=== PATIENT | male | born 1935 | race Caucasian/White ===

== ENCOUNTER 2020-11-20 04:59 | Emergency (ER) | payer OTHER ==
--- OUTSIDE RECORDS SUMMARY | 2020-11-20 05:02 | XMS REPORT | Continuity of Care Document ---
:1935 Author Organization [facility] t Address [address] [place] [address] Care Team Providers Name Role Phone Unavailable Unavailable Unavailable Problems This patient has no known problems. Allergies, Adverse Reactions, Alerts Allergy Allergy Status Severity Reaction(s) Onset Inactive Treating Comm ents Source Name Type Date Date Clinician Zetia Adverse Active Info Not [facility] Reaction Available [facility] Medications Ordered Filled Start Stop Current Ordering Indication Dosage Frequency Signature Comments Components Source Medication Medication Date Date Medication? Clinician (SIG) Name Name Caltrate Caltrate Yes [address] [facility] 600+D 600+D Mill[facility] with a [facility] Multi For Multi For Yes not [facility] Him 50+ Him 50+ Millender defined [facility] Aspir-81 Aspir-81 Yes [address] [facility] Lipitor Lipitor Yes [address] [facility] Finasteride Finasteride Yes [address] [facility] Chondroitin Chondroitin Yes not [facility] Sulfate Sulfate [facility] defined [facility] Inderal LA Inderal LA Yes [address] [facility] Gabapentin Gabapentin Yes [address] [facility] Clonazepam Clonazepam Yes [address] [facility] at bedtime [facility] Procedures This patient has no known procedures. Encounters Start End Encounter Admission Attending Care Care Encounter Source Date/Time Date/Time Type Type Clinicians Facility Department ID 2020-09-30 2020-09-30 Outpatient [facility] [id number] [facility] 2020-09-30 2020-09-30 [facility] [id number] [facility] 2020-08-22 2020-08-22 [facility] [id number] [facility] 2020-06-14 2020-06-14 [facility] [id number] [facility] 2020-01-08 2020-01-08 [facility] [id number] [facility] 2019-09-25 2019-09-25 [facility] [id number] [facility] 10:40:00 10:40:00 [facility] Medicine Outpati ent Clinics 2019-06-13 2019-06-13 [facility] [id number] [facility] 09:57:00 09:57:00 [facility] Medicine Medicine Outpati ent Clinics 2019-06-12 2019-06-12 [facility] [id number] [facility] 15:45:00 15:45:00 [facility] Medicine l Medicine Outpati ent Clinics 2018-11-21 2018-11-21 [facility] [id number] [facility] 08:45:00 08:45:00 [facility] Medicine Outpati ent Clinics 2018-08-22 2018-08-22 [facility] [id number] [facility] 10:00[facility]00 10:00:00 [facility] 2017-08-23 2017-08-23 Outpatient Mahamed Portillo [id number] [facility] 15:00:00 15:00:00 [facility] ent Clinics Results This patient has no known results.
[2020-11-20] MEDS ORDERED: KETOROLAC 30 MG/ML INJ ONE (06:18)
--- NOTE | 2020-11-20 07:15 | RAD REPORT ---
EXAM DESCRIPTION: CTSpine Lumbar Wo Con11/20/2020 6:50 am CLINICAL HISTORY: Back injury with back pain status post fall COMPARISON: None TECHNIQUE: Computed axial tomography lumbar spine was obtained with coronal and sagittal reconstruct ion. All CT scans are performed using dose optimization technique as appropriate and may include automated exposure control or mA/KV adjustment according to patient size. FINDINGS: No fracture is seen. No dislocation. 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 If patient continues to have symptoms to suggest acute spinal canal pathology MRI would be recommende d
--- NOTE | 2020-11-20 07:19 | RAD REPORT ---
EXAM DESCRIPTION: CT - Pelvis Wo Cont - 11/20/2020 6:50 am CLINICAL HISTORY: Pelvic pain status post fall COMPARISON: None. TECHNIQUE: Computed axial tomography of the pelvis was obtained. Coronal and sagittal reconstruction performed All CT scans are performed using dose optimization technique as appropriate and may include automated exposure control or mA/KV adjustment according to patient size. FINDINGS: The bones are osteoporotic. No fracture or dislocation is seen. Muscles are normal size and density. A subcutaneous contusion is not noted IMPRESSION: No fracture seen. If patient continues have symptoms to suggest an occult fracture MRI would be recommended
--- NOTE | 2020-11-20 07:39 | EDPHYS ---
Physician Documentation [facility] Name: Adam Spencer Age: 84 yrs Sex: Male : 1935 Arrival Date: 11/20/2020 Time: 05:04 Bed 24 Private MD: [facility] ED Physician Allan Pierce HPI: 11/20 05:51 This 84 yrs old Male presents to ER via Wheelchair with complaints of Fall ma2 Injury. 05:51 Onset: The symptoms/episode began/occurred suddenly, 2 day(s) ago. Associated injuries: ma2 The patient sustained injury to the low back. Severity of symptoms: At their worst the symptoms were mild, in the emergency department the symptoms are unchanged. The patient has experienced similar episodes in the past. Fell while mowing the grass, tripped lost balance, mechanical fall hit sacrum,/lower back, has bilateral lower back pain no red flags such as fever weakness urinary incontinence, or bowel incontinence,. 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 - Family history:: not pertinent. - Social history: Denies using street drugs, alcohol. ROS: 05:51 Constitutional: Negative for fever, chills, and weight loss. ma2 05:51 All other systems are negative. Exam: 05:51 Constitutional: This is a well developed, well nourished patient who is awake, alert, ma2 and in no acute distress. Head/Face: Normocephalic, atraumatic. Eyes: Pupils equal round and reactive to light, extra-ocular motions intact. Lids and lashes normal. Conjunctiva and sclera are non-icteric and not injected. Cornea within normal limits. Periorbital areas with no swelling, redness, or edema. ENT: Nares patent. No nasal discharge, no septal abnormalities noted. Tympanic membranes are normal and external auditory canals are clear. Oropharynx with no redness, swelling, or masses, exudates, or evidence of obstruction, uvula midline. Mucous membranes moist. Neck: Trachea midline, no thyromegaly or masses palpated, and no cervical lymphadenopathy. Supple, full range of motion without nuchal rigidity, or vertebral point tenderness. No Meningismus. Chest/axilla: Normal chest wall appearance and motion. Nontender with no deformity. No lesions are appreciated. Cardiovascular: Regular rate and rhythm with a normal S1 and S2. No gallops, murmurs, or rubs. Normal PMI, no JVD. No pulse deficits. Respiratory: Lungs have equal breath sounds bilaterally, clear to auscultation and percussion. No rales, rhonchi or wheezes noted. No increased work of breathing, no retractions or nasal flaring. Abdomen/GI: Soft, non-tender, with normal bowel sounds. No distension or tympany. No guarding or rebound. No evidence of tenderness throughout. Back: Paraspinal muscle spasm and tenderness at level of L2-3 L4, no spinal tenderness. No costovertebral tenderness. Full range of motion. Skin: Warm, dry with normal turgor. Normal color with no rashes, no lesions, and no evidence of cellulitis. MS/ Extremity: Pulses equal, no cyanosis. Neurovascular intact. Full, normal range of motion. Neuro: Awake and alert, GCS 15, oriented to person, place, time, and situation. Cranial nerves II-XII grossly intact. Motor strength 5/5 in all extremities. Sensory grossly intact. Cerebellar exam normal. Normal gait. Vital Signs: 05:22 BP 125 / 65; Pulse 69; Resp 17; Temp 98.3; Pulse Ox 97% ; Weight 86.18 kg; Height 6 ft. em 0 in. (182.88 cm); Pain 8/10; 05:22 Body Mass Index 25.77 (86.18 kg, 182.88 cm) em Eli Coma Score: 05:22 Eye Response: spontaneous(4). Verbal Response: oriented(5). Motor Response: obeys em commands(6). Total: 15. Trauma Score (Adult): 05:22 Eye Response: spontaneous(1); Verbal Response: oriented(1); Motor Response: obeys em commands(2); Systolic BP: > 89 mm Hg(4); Respiratory Rate: 10 to 29 per min(4); Eli Score: 15; Trauma Score: 12 MDM: 05:41 Patient medically screened. ma2 05:51 Differential diagnosis: abrasion, fracture, sprain, strain. ma2 07:40 Data reviewed: vital signs, nurses notes, radiologic studies, CT scan, and as a result, cp I will discharge patient. Counseling: I had a detailed discussion with the patient and/or guardian regarding: the historical points, exam findings, and any diagnostic results supporting the discharge/admit diagnosis, radiology results, the need for outpatient follow up, a family practitioner, to return to the emergency department if symptoms worsen or persist or if there are any questions or concerns that arise at home. Response to treatment: the patient's symptoms have markedly improved after treatment. 11/20 05:50 Order name: CT Lumbar Spine Wo Con; Complete Time: 07:36 ma2 11/20 05:50 Order name: CT Pelvis wo Cont; Complete Time: 07:36 ma2 Administered Medications: 06:02 Drug: Ketorolac 60 mg Route: IM; Site: right gluteus; em 07:30 Follow up: Response: Pain is decreased em Disposition Summary: 11/20/20 07:39 Discharge Ordered Location: Home cp Condition: Stable cp Diagnosis - Low back pain cp - Fall on same level from slipping, tripping and stumbling without subsequent cp striking against object Followup: ma2 - With: Private Physician - When: Tomorrow - Reason: Continuance of care Discharge Instructions: - Discharge Summary Sheet ma2 - Acute Back Pain, Adult ma2 - Low Back Sprain or Strain Rehab-SportsMed ma2 - Back Injury Prevention, [id number] ma2 Forms: - Medication Reconciliation Form cp - Thank You Letter cp - Antibiotic Education cp - Prescription Opioid Use cp Prescriptions: - Cyclobenzaprine 10 mg Oral Tablet - take 1 tablet by ORAL route every 8 hours As needed; 30 tablet; Refills: 0, ma2 Product Selection Permitted - Diclofenac Sodium 75 mg Oral Tablet Sustained Release - take 1 tablet by ORAL route 2 times per day; 30 tablet; Refills: 0, Product ma2 Selection Permitted Signatures: Dispatcher [employer] Bob Ames RN RN em Nicolas Bobby PA PA cp Allan Pierce MD MD ma2
--- NOTE | 2020-11-20 07:39 | ER ---
Nurse's Notes [facility] Name: Adam Spencer Age: 84 yrs Sex: Male : 1935 Arrival Date: 11/20/2020 Time: 05:04 Bed 24 Private MD: Jarred Woods Diagnosis: Low back pain;Fall on same level from slipping, tripping and stumbling without subsequent striking against object Presentation: 11/20 05:20 Chief complaint: Patient states: was weed eating the yard on Tuesday and I lost my em balance and fell causing an injury to my lower back. Care prior to arrival: None. Mechanism of Injury: Fall from standing position. Trauma event details: Injury occurred in the [facility], Injury occurred: at home. Injury occurred: November 18, 2020. 05:20 Acuity: AISHA 3 em 05:20 Method Of Arrival: Wheelchair em 06:00 Coronavirus screen: Client denies travel out of the [place] in the last 14 days. Ebola em Screen: Patient negative for fever greater than or equal to 101.5 degrees Fahrenheit, and additional compatible Ebola Virus Disease symptoms Patient denies exposure to infectious person. Patient denies travel to an Ebola-affected area in the 21 days before illness onset. No symptoms or risks identified at this time. Initial Sepsis Screen: Does the patient meet any 2 criteria? No. Patient's initial sepsis screen is negative. Initial Sepsis Screen: Does the patient have a suspected source of infection? No. Patient's initial sepsis screen is negative. Risk Assessment: Do you want to hurt yourself or someone else? Patient reports no desire to harm self or others. Onset of symptoms was November 20, 2020. 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 - Family history:: not pertinent. - Social history: Denies using street drugs, alcohol. Screenin:54 Abuse screen: Denies threats or abuse. Nutritional screening: No deficits noted. em Tuberculosis screening: No symptoms or risk factors identified. Fall Risk None identified. Primary Survey: 06:00 NO uncontrolled hemorrhage observed. A: The patient is alert. Airway: patent. em Breathing/Chest: Respiratory pattern: regular, Respiratory effort: spontaneous. Circulation: Skin color: pink. Disability Alert. Exposure/Environment: There is no evidence of uncontrolled external bleeding. Assessment: 06:00 General: Appears in no apparent distress. uncomfortable, Behavior is calm, cooperative, em appropriate for age. Pain: Complains of pain in lumbar area Pain currently is 8 out of 10 on a pain scale. Neuro: Level of Consciousness is awake, alert, obeys commands, Oriented to person, place, time, situation. Cardiovascular: Capillary refill < 3 seconds Patient's skin is warm and dry. Respiratory: Airway is patent Respiratory effort is even, unlabored, Respiratory pattern is regular, symmetrical. Derm: Skin is intact, is thin, Skin is pink, warm \T\ dry. Musculoskeletal: Capillary refill < 3 seconds, Range of motion: intact in all extremities. 07:47 Reassessment: pt reports that pain has improved. pt able to ambulate without assistance tr6 and refused wheelchair for discharge. discharge instructions reviewed with pt and pts son at bedside. Vital Signs: 05:22 BP 125 / 65; Pulse 69; Resp 17; Temp 98.3; Pulse Ox 97% ; Weight 86.18 kg; Height 6 ft. em 0 in. (182.88 cm); Pain 8/10; 05:22 Body Mass Index 25.77 (86.18 kg, 182.88 cm) em Eli Coma Score: 05:22 Eye Response: spontaneous(4). Verbal Response: oriented(5). Motor Response: obeys em commands(6). Total: 15. Trauma Score (Adult): 05:22 Eye Response: spontaneous(1); Verbal Response: oriented(1); Motor Response: obeys em commands(2); Systolic BP: > 89 mm Hg(4); Respiratory Rate: 10 to 29 per min(4); Eli Score: 15; Trauma Score: 12 ED Course: 05:04 Patient arrived in ED. es 05:04 Jarred Woods DO is Private Physician. es 05:22 Triage completed. em 05:25 Arm band placed on right wrist. em 05:41 Allan Pierce MD is Attending Physician. ma2 05:54 Bob Hunter, RN is Primary Nurse. em 05:54 Patient has correct armband on for positive identification. Adult w/ patient. em 06:00 Patient maintains SpO2 saturation greater than 95% on room air. em 06:00 Thermoregulation: warm blanket given to patient. em 06:50 CT Lumbar Spine Wo Con In Process Unspecified. EDMS 06:50 CT Pelvis wo Cont In Process Unspecified. EDMS 06:53 Nicolas Bobby PA is PHCP. cp 07:16 No provider procedures requiring assistance completed. em 07:48 Patient did not have IV access during this emergency room visit. tr6 Administered Medications: 06:02 Drug: Ketorolac 60 mg Route: IM; Site: right gluteus; em 07:30 Follow up: Response: Pain is decreased em Outcome: 07:39 Discharge ordered by MD. cp 07:48 Discharged to home ambulatory, with family. tr6 07:48 Condition: improved 07:48 Discharge instructions given to patient, family, Instructed on discharge instructions, follow up and referral plans. medication usage, safety practices, Demonstrated understanding of instructions, follow-up care, medications, Prescriptions given X 2. 07:49 Patient left the ED. tr6 Signatures: Dispatcher [employer] Vivi White Edgar, RN RN em Nicolas Bobby PA PA cp Allan Pierce MD MD wi2 Tere Long RN RN tr6
[2020-11-20 19:29] VITALS: BP 125/65; TEMP 98.3; O2SAT 97
== END 2020-11-20 07:49 | disposition home or self-care (01) ==
LOC: ER 04:59
DX: M54.5 Low back pain (principal); W01.0XXA Fall on same level from slipping, tripping and stumbling without subsequent striking against object, initial encounter
CPT/HCPCS: 72131; 72192; 96372; 99284

== ENCOUNTER 2021-08-03 18:05 | Emergency (ER) | payer OTHER ==
--- OUTSIDE RECORDS SUMMARY | 2021-08-03 18:08 | XMS REPORT | Continuity of Care Document ---
:1935 Author Organization [facility] t Address [address] [place] [address] Care Team Providers Name Role Phone Elyse Woods Attending Clinician Unavailable Milljazmine Attending Clinician Unavailable Problems This patient has no known [...] Date/Time Type Type Clinicians Facility Department ID 2021-06-30 Outpatient Woods, [facility] [id number] [facility] 13:05:00 Jarred [id number] [facility] 2021-06-29 Out[facility] Woods, [facility] [id number] 09:17:00 Jarred [id number] [facility] 2021-05-20 Outpatient Woods, [facility] [id number] [facility] 14:00:18 Jarred [id number] [facility] 2021-05-20 Outpatient Woods, [facility] [id number] [facility] 13:58:47 Jarred [id number] [facility] 2021-05-20 Outpatient Woods, [facility] [id number] 13:35:19 Jarred [id number] [facility] 2021-05-20 Outpatient Woods, [facility] [id number] 13:11:28 Jarred [id number] [facility] 2021-05-20 Outpatient Woods, [facility] [id number] 12:31:25 Jarred [id number] [facility] 2021-05-20 Outpatient Woods, [facility] [id number] [facility] [facility] 12:31:02 Jarred [id number] [facility] 2021-05-20 Outpatient Woods, [facility] [id number] 12:21:18 Jarred [id number] [facility] 2021-05-20 [facility], [facility] [id number] [facility] 11:08:37 [id number] [facility] 2021-05-20 [facility] [id number] 11:05:50 [id number] [facility] 2021-05-20 Outpatient Eleanor [facility] [id number] 11:03:28 [id number] [facility] 2021-05-20 Outpatient Eleanor, [facility] [id number] 11:02:51 [id number] [facility] 2021-06-30 2021-06-30 ambulatory [facility] [id number] [facility] 2021-03-31 2021-03-31 ambulatory [facility] [id number] [facility] 2021-01-30 2021-01-30 Outpatient [facility] [id number] [facility] 2020-12-01 2020-12-01 Outpatient [facility] [id number] [facility] 2020-11-28 2020-11-28 Outpatient [facility] [id number] [facility] 2020-09-30 2020-09-30 Outpatient [facility] [id number] [facility] 2020-09-30 2020-09-30 Outpatient [facility] [id number] [facility] 2020-08-22 2020-08-22 Outpatient [facility] [id number] [facility] 2020-06-14 2020-06-14 Outpatient [facility] [id number] [facility]00 [facility] 2020-01-08 2020-01-08 [facility] [id number] [facility] 2019-09-25 2019-09-25 [facility] [id number] 10:40:00 10:40:00 [facility] Clin[facility] 2019-06-13 2019-06-13 [facility] [id number] 09:57:00 09:57:00 [facility] 2019-06-12 2019-06-12 [facility] [id number] 15:45:00 15:45:00 [facility] 2018-11-21 2018-11-21 [facility] [id number] 08:45:00 08:45:00 [facility] 2018-08-22 2018-08-22 [facility] [id number] 10:00:00 10:00:00 [facility] 2017-08-23 2017-08-23 [facility] [id number] 15:00:00 15:00:00 [facility] Results This patient has no known results.
--- NOTE | 2021-08-03 18:27 | RAD REPORT ---
EXAM DESCRIPTION: CT - Ct Stroke Brain Wo Cont - 08/03/2021 6:21 pm CLINICAL HISTORY: AMS Headache, drowsiness, CVA symptomology COMPARISON: HEAD BRAIN W O CONTRAST dated 04/21/2013 TECHNIQUE: All CT scans are performed using dose optimization technique as appropriate and may inclu de automated exposure control or mA/KV adjustment according to patient size. FINDINGS: No intracranial hemorrhage, hydrocephalus or extra-axial fluid collection.Mild generalized brain atrophy is present with mild periventricular and deep white matter chronic microvascular ische willa changes.No areas of brain edema or evidence of midline shift. The paranasal sinuses and mastoids are clear. The calvarium is intact. IMPRESSION: No acute intracranial abnormality. The findings were discussed with Dr. Waggoner On 08/03/2021 at 6:14 p.m. by telephone.
[2021-08-03 18:37] LABS: Absolute Lymphocytes (CBC) 1.9 K/uL (0.7-4.9); Hematocrit 34.9 % (39.6-49.0); Lymphocytes % 18.5 % (15.3-44.8); MPV 6.9 fL (7.6-11.3); RBC Red Blood Cell Count 3.57 M/uL (4.33-5.43)
[2021-08-03 18:43] LABS: Urine Blood Negative (Negative); Urine Glucose Negative (Negative); Urine Protein Negative (Negative); Urine pH 5.5 (5.0-7.0)
[2021-08-03 18:52] LABS: Albumin 3.5 g/dL (3.4-5.0); Bilirubin Total 0.5 mg/dL (0.2-1.0); Potassium 4.2 mmol/L (3.5-5.1); Protein, Total 7.5 g/dL (6.4-8.2)
[2021-08-03 18:57] LABS: Protime INR 0.97
[2021-08-03 19:01] LABS: Urine Bacteria <20 /HPF (NONE SEEN); Urine RBC NONE SEEN /HPF (NONE SEEN)
--- NOTE | 2021-08-03 19:24 | RAD REPORT ---
EXAM DESCRIPTION: RAD - Chest Single View - 08/03/2021 7:06 pm CLINICAL HISTORY: Weakness;Fever Chest pain. COMPARISON: CHEST SINGLE VIEW dated 04/21/2013; CHEST PA AND LAT 2 VIEW dated 04/01/2009; CHEST PA AN D LAT 2 VIEW dated 03/28/2009; CHEST PA AND LAT 2 VIEW dated 02/10/1999 FINDINGS: Portable technique limits examination quality. Mild bilateral interstitial lung opacities likely represent pulmonary edema or infection. The heart i s mildly enlarged in size. No displaced fractures.
[2021-08-03] MEDS ORDERED: ACETAMINOPHEN 500 MG TAB ONE (20:00)
[2021-08-03] MEDS ORDERED: NA CHLORIDE 0.9% 1,000 ML ONE (20:38)
[2021-08-03 20:45] LABS: SARS-COV-2 RT PCR NEGATIVE (NEGATIVE)
[2021-08-03] MEDS ORDERED: CEFTRIAXONE 1000 MG/VIAL ONE (21:46)
[2021-08-03] MEDS ORDERED: NA CHLORIDE 0.9% 100 ML IV ONE (21:47)
[2021-08-03] MEDS ORDERED: AZITHROMYCIN 500 MG INJ IVPB ONE (21:47)
[2021-08-03] MEDS ORDERED: NA CHLORIDE 0.9% 250 ML ONE (21:47)
--- NOTE | 2021-08-03 22:33 | ER ---
Nurse's Notes [facility] Name: Adam Spencer Age: 85 yrs Sex: Male : 1935 Arrival Date: 08/03/2021 Time: 18:12 Bed 18 Private MD: Diagnosis: Pneumonia, unspecified organism Presentation: 08/03 18:14 Chief complaint: Patient's son or daughter states: "he was having trouble walking at jd3 about 1000 today. he reported that he had a headache that started early in the morning. at 1600 we noticed he couldn't walk at all. he had a 101 fever before leaving for the ER.". Coronavirus screen: fever. Ebola Screen: No symptoms or risks identified at this time. Initial Sepsis Screen: Does the patient meet any 2 criteria? No. Patient's initial sepsis screen is negative. Does the patient have a suspected source of infection? No. Patient's initial sepsis screen is negative. Risk Assessment: Do you want to hurt yourself or someone else? Patient reports no desire to harm self or others. Onset of symptoms was August 03, 2021 at 10:00. 18:14 Method Of Arrival: Wheelchair jd3 18:14 Acuity: AISHA 2 jd3 Historical: - Allergies: 18:17 Amitriptyline; jd3 18:17 ezetimibe; jd3 18:17 Lovastatin; jd3 18:17 simvastatin; jd3 - Home Meds: 18:17 finasteride Oral [Active]; chondroitin sulfate A sodium oral [Active]; Fish Oil oral jd3 [Active]; Hydrocortisone Oral [Active]; Ketoconazole Oral [Active]; - PMHx: 18:17 benign prostate; jd3 - Immunization history:: Adult Immunizations up to date, Client reports receiving the 2nd dose of the Covid vaccine, Flu vaccine is up to date. - Social history:: Smoking status: Patient denies any tobacco usage or history of. Screenin:16 Abuse screen: Denies threats or abuse. Nutritional screening: No deficits noted. jb4 Tuberculosis screening: No symptoms or risk factors identified. Fall Risk IV access (20 points). Ambulatory Aid- Crutches/Cane/Walker (15 pts). Gait- Normal/Bed Rest/Wheelchair (0 pts). Assessment: 18:12 General: Appears in no apparent distress. uncomfortable, Behavior is calm, cooperative, jb4 appropriate for age. Pain: Denies pain. Neuro: Level of Consciousness is awake, alert, obeys commands, Oriented to person, place, time, situation, Rehabilitation Tech are equal bilaterally Moves all extremities. Full function Weakness in bilateral leg(s) Gait is unsteady, Speech is normal, Facial symmetry appears normal, Pupils are PERRLA, Intact. Cardiovascular: Patient's skin is warm and dry. Respiratory: Airway is patent Respiratory effort is even, unlabored, Respiratory pattern is regular, symmetrical. GI: No signs and/or symptoms were reported involving the gastrointestinal system. : No signs and/or symptoms were reported regarding the genitourinary system. EENT: No signs and/or symptoms were reported regarding the EENT system. Derm: Skin is healthy with good turgor, Skin is pink, warm \\T\\ dry. Musculoskeletal: Circulation, motion, and sensation intact. Range of motion: intact in all extremities. 19:03 Reassessment: NIHSS score 0. jb4 20:27 Reassessment: No changes from previously documented assessment. The pt was recv'd from karson room 26 of the ER. I agree with previous assessment. 23:01 Reassessment: The pt has been dc'd, but his abx are still infusing. He will be dc'd, as karson soon as they complete. Vital Signs: 18:16 BP 121 / 58; Pulse 67; Resp 16; Pulse Ox 96% on R/A; Pain 0/10; jb4 18:20 Temp 99.8(O); jd3 21:50 BP 112 / 51; Pulse 61; Resp 18; Temp 99.2; Pulse Ox 97% on R/A; Pain 0/10; karson 23:02 BP 104 / 48; Pulse 69; Resp 19; Pulse Ox 97% on R/A; Pain 0/10; karson NIH Stroke Scale Scores: 18:54 NIHSS Score: 0 pm1 ED Course: 18:12 Patient arrived in ED. jb4 18:16 Initial lab(s) drawn, by me, sent to lab. First set of blood cultures drawn by sd. dh3 Inserted saline lock: 20 gauge in right forearm, using aseptic technique. Blood collected. 18:17 Triage completed. jd3 18:17 Quan Santoro NP is PHCP. pm1 18:18 Pravin Waggoner MD is Attending Physician. pm1 18:18 No provider procedures requiring assistance completed. Inserted saline lock: 18 gauge jb4 in left forearm, using aseptic technique. Blood collected. 18:18 Second set of blood cultures drawn by me. jb4 18:20 Arm band placed on. jd3 18:[address] and back to exam room. jd3 18:22 CT Stroke Brain w/o Contrast In Process Unspecified. EDMS 18:22 Placed in gown. Bed in low position. Call light in reach. Side rails up X 1. Door mb7 closed. Noise minimized. 18:22 EKG done, by ED staff, reviewed by Quna Santoro NP. mb7 18:25 Jesús Jung, VERENA is Primary Nurse. jb4 18:44 Straight cath inserted, using sterile technique, 18 Fr. Specimen obtained. Returned mb7 clear yellow urine. Patient tolerated well. 18:57 Strep Sent. mb7 18:57 COVID-19/FLU A+B (Document "Date of Onset" if Symptomatic) Sent. mb7 19:08 Chest Single View XRAY In Process Unspecified. EDMS 20:26 Throat Culture Sent. karson 23:23 intact, bleeding controlled, No redness/swelling at site. Pressure dressing applied. karson Administered Medications: 19:58 Not Given (Patient Refused): Tylenol 1000 mg PO once karson 20:39 Drug: NS 0.9% 500 ml {Note: 1/2 a liter given, as there aren't any 500cc NS available.} karson Route: IV; Rate: bolus; Site: left hand; 21:33 Follow up: IV Status: Completed infusion; IV Intake: 500ml karson 21:46 Drug: Rocephin (cefTRIAXone) 1 grams Route: IV; Rate: calculated rate; Site: left wrist;karson 23:22 Follow up: IV Status: Completed infusion; IV Intake: 100ml karson 22:09 Drug: AZITHromycin 500 mg Route: IVPB; Infused Over: 1 hrs; Site: left wrist; karson 23:21 Follow up: IV Status: Completed infusion; IV Intake: 250ml karson Intake: 21:33 IV: 500ml; Total: 500ml. karson 23:21 IV: 250ml; Total: 750ml. karson 23:22 IV: 100ml; Total: 850ml. karson Outcome: 22:32 Discharge ordered by . pm1 23:02 Condition: stable karson 23:23 Discharged to home via wheelchair, with family. karson 23:23 Discharge instructions given to patient, family, Instructed on discharge instructions, follow up and referral plans. medication usage, Demonstrated understanding of instructions, follow-up care, medications, Prescriptions given X 1. 23:23 Patient left the ED. karson NIH Stroke Scale - NIH Stroke Score Date: 08/03/2021 Time: 18:54 Total Score = 0 1a. Level of Consciousness (LOC) - 0(Alert) 1b. Level of Consciousness (LOC) (Month \\T\\ Age) - 0(Both) 1c. LOC Commands (Open \\T\\ Closes Eyes/Gate Services Supervisor) - 0(Both) 2. Best Gaze (Lateral Gaze Paresis) - 0(Normal) 3. Visual Field Loss - 0(No visual loss) 4. Facial Palsy - 0(Normal) 5a. Left Arm: Motor (10-second hold) - 0(No drift) 5b. Right Arm: Motor (10-second hold) - 0(No drift) 6a. Left Leg: Motor (5-second hold - always test supine) - 0(No drift) 6b. Right Leg: Motor (5-second hold - always test supine) - 0(No drift) 7. Limb Ataxia (finger/nose \\T\\ heel/leonard - test with eyes open) - 0(Absent) 8. Sensory Loss (pinprick arms/legs/face) - 0(Normal) 9. Best Language: Aphasia (description/naming/reading) - 0(No aphasia) 10. Dysarthria (speech clarity - read or repeat words) - 0(Normal) 11. Extinction and Inattention (visual/tactile/auditory/spatial/personal) - 0(No abnormality) Initials: pm1 Signatures: Dispatcher [employer] EDMS Quan Santoro, ESTER WEIGHER AND CRUSHER pm1 Jesús Jung, VERENA RN jb4 Preeti Morales 3 Andres Copeland RN RN jJacy Yousif 7 Randi Holland RN RN bo
--- NOTE | 2021-08-03 22:33 | EDPHYS ---
Physician Documentation [facility] Name: Adam Spencer Age: 85 yrs Sex: Male : 1935 Arrival Date: 08/03/2021 Time: 18:12 Bed 18 Private MD: ED Physician Pravin Waggoner HPI: 08/03 18:20 This 85 yrs old Male presents to ER via Wheelchair with complaints of Weakness. pm1 18:20 The patient presents to the emergency department with weakness of the left lower pm1 extremity, right lower extremity, entire body, generalized weakness, Patient with weakness to bilateral lower extremities onset at 10 AM. Progressively got worse at 4 PM today had difficulty getting himself out of a chair due to lower extremity weakness. Onset: The symptoms/episode began/occurred today, at 10:00. Context: occurred at home. Associated signs and symptoms: Pertinent positives: Fever 101 prior to arrival, Pertinent negatives: headache, Back pain, abdominal pain, nausea, vomiting, diarrhea. Severity of symptoms: in the emergency department the symptoms are unchanged Pain is currently a 0 / 10. Patient's baseline: Neuro: alert and fully oriented, Motor: no deficits, Ambulation: Speech: normal. The patient has not experienced similar symptoms in the past. The patient has not recently seen a physician. Historical: - Allergies: 18:17 Amitriptyline; jd3 18:17 ezetimibe; jd3 18:17 Lovastatin; jd3 18:17 simvastatin; jd3 - Home Meds: 18:17 finasteride Oral [Active]; chondroitin sulfate A sodium oral [Active]; Fish Oil oral jd3 [Active]; Hydrocortisone Oral [Active]; Ketoconazole Oral [Active]; - PMHx: 18:17 benign prostate; jd3 - Immunization history:: Adult Immunizations up to date, Client reports receiving the 2nd dose of the Covid vaccine, Flu vaccine is up to date. - Social history:: Smoking status: Patient denies any tobacco usage or history of. ROS: 18:20 Constitutional: Negative for fever, chills, and weight loss, Cardiovascular: Negative pm1 for chest pain, palpitations, and edema, Respiratory: Negative for shortness of breath, cough, wheezing, and pleuritic chest pain, Abdomen/GI: Negative for abdominal pain, nausea, vomiting, diarrhea, and constipation, MS/Extremity: Negative for injury and deformity, Skin: Negative for injury, rash, and discoloration. 18:20 Neuro: Positive for Generalized weakness and bilateral lower extremity weakness, Negative for dizziness, headache, numbness, tingling. 18:20 All other systems are negative. 21:29 Respiratory: Positive for Shortness of breath, patient reports to daughter he felt like pm1 he could not take in a deep breath. As we were discussing the differentials, impression, and plan of care for pneumonia. Exam: 18:36 Constitutional: This is a well developed, well nourished patient who is awake, alert, pm1 and in no acute distress. Head/Face: Normocephalic, atraumatic. 18:36 Back: No spinal tenderness. No costovertebral tenderness. Full range of motion. Skin: Warm, dry with normal turgor. Normal color with no rashes, no lesions, and no evidence of cellulitis. MS/ Extremity: Pulses equal, no cyanosis. Neurovascular intact. Full, normal range of motion. 18:36 Eyes: Exam is negative for acute changes, Periorbital structures: appear normal, Pupils: no acute changes, Extraocular movements: no acute changes, Conjunctiva: no acute changes, Nystagmus: is not appreciated. 18:36 ENT: Exam is negative for acute changes, External ear(s): are unremarkable, Ear canal(s): are normal, TM's: are normal, Mouth: no acute changes, Lips: normal, moist, Oral mucosa: normal, pink and intact, moist, Voice: no acute changes. 18:36 Neck: Exam negative for acute changes, ROM/movement: is normal, is supple. 18:36 Cardiovascular: Exam negative for acute changes, Rate: normal, Rhythm: regular, Pulses: no pulse deficits are appreciated, Pulses are 2+ in right dorsalis pedis artery and left dorsalis pedis artery. Heart sounds: normal, normal S1and S2, Edema: is not appreciated. 18:36 Respiratory: Exam negative for acute changes, respiratory distress, shortness of breath, Breath sounds: are clear throughout. 18:36 Abdomen/GI: Inspection: abdomen appears normal, Palpation: abdomen is soft and non-tender. 18:36 Neuro: Orientation: is normal, Mentation: is normal, Cranial nerves: CN II- XII are normal as tested, Cerebellar function: normal finger to nose testing, Motor: moves all fours, strength is 5/5 in all extremities, Sensation: no obvious gross deficits, Babinski testing is normal. Vital Signs: 18:16 BP 121 / 58; Pulse 67; Resp 16; Pulse Ox 96% on R/A; Pain 0/10; jb4 18:20 Temp 99.8(O); jd3 21:50 BP 112 / 51; Pulse 61; Resp 18; Temp 99.2; Pulse Ox 97% on R/A; Pain 0/10; karson 23:02 BP 104 / 48; Pulse 69; Resp 19; Pulse Ox 97% on R/A; Pain 0/10; karson NIH Stroke Scale Scores: 18:54 NIHSS Score: 0 pm1 MDM: 18:30 Patient medically screened. pm1 21:39 ED course: Discussed PSI port score with patient and family and discussed admission pm1 because the score recommends inpatient. However the patient wants to go home to be with his who is having pain from her fracture clavicle. Daughter at bedside is a nurse and said that she would take the patient home today and will return if he worsens. 22:31 Data reviewed: vital signs. Data interpreted: Pulse oximetry: on room air is 97 %. pm1 Interpretation: normal. Counseling: I had a detailed discussion with the patient and/or guardian regarding: the historical points, exam findings, and any diagnostic results supporting the discharge/admit diagnosis, lab results, radiology results, the need for outpatient follow up, to return to the emergency department if symptoms worsen or persist or if there are any questions or concerns that arise at home. 08/03 18:20 Order name: Blood Culture Adult (2) pm1 08/03 18:20 Order name: CBC with Diff; Complete Time: 19:07 pm1 08/03 18:20 Order name: CMP; Complete Time: 19:07 pm1 08/03 18:20 Order name: Lactate; Complete Time: 18:49 pm1 08/03 18:20 Order name: Protime (+inr); Complete Time: 19:07 pm1 08/03 18:20 Order name: Ptt, Activated; Complete Time: 19:07 pm1 08/03 18:20 Order name: Urine Culture pm1 08/03 18:20 Order name: Urine Microscopic Only; Complete Time: 19:07 pm1 08/03 18:22 Order name: COVID-19/FLU A+B (Document "Date of Onset" if Symptomatic); Complete Time: pm1 21:09 08/03 18:22 Order name: Strep; Complete Time: 20:24 pm1 08/03 18:43 Order name: Urine Dipstick-Ancillary; Complete Time: 18:49 EDMS 08/03 19:06 Order name: Glucose, Ancillary Testing; Complete Time: 19:07 EDMS 08/03 19:08 Order name: Glucose, Ancillary Testing EDMS 08/03 20:20 Order name: Throat Culture EDMS 08/03 18:16 Order name: CT Stroke Brain w/o Contrast; Complete Time: 18:36 ss 08/03 18:20 Order name: Chest Single View XRAY; Complete Time: 19:27 pm1 08/03 18:20 Order name: Accucheck; Complete Time: 18:57 pm1 08/03 18:20 Order name: Cardiac monitoring; Complete Time: 18:26 pm1 08/03 18:20 Order name: EKG - Nurse/Tech; Complete Time: 18:23 pm1 08/03 18:20 Order name: IV Saline Lock - Large Bore; Complete Time: 18:23 pm1 08/03 18:20 Order name: Labs collected and sent; Complete Time: 18:23 pm1 08/03 18:20 Order name: O2 Per Protocol; Complete Time: 18:26 pm1 08/03 18:20 Order name: O2 Sat Monitoring; Complete Time: 18:26 pm1 08/03 18:20 Order name: Urine Dipstick-Ancillary (obtain specimen); Complete Time: 18:45 pm1 08/03 18:57 Order name: Straight Cath; Complete Time: 18:57 mb7 Administered Medications: 19:58 Not Given (Patient Refused): Tylenol 1000 mg PO once karson 20:39 Drug: NS 0.9% 500 ml {Note: 1/2 a liter given, as there aren't any 500cc NS available.} karson Route: IV; Rate: bolus; Site: left hand; 21:33 Follow up: IV Status: Completed infusion; IV Intake: 500ml karson 21:46 Drug: Rocephin (cefTRIAXone) 1 grams Route: IV; Rate: calculated rate; Site: left wrist;karson 23:22 Follow up: IV Status: Completed infusion; IV Intake: 100ml karson 22:09 Drug: AZITHromycin 500 mg Route: IVPB; Infused Over: 1 hrs; Site: left wrist; karson 23:21 Follow up: IV Status: Completed infusion; IV Intake: 250ml karson Disposition Summary: 08/03/21 22:32 Discharge Ordered Location: Home pm1 Problem: new pm1 Symptoms: have improved pm1 Condition: Stable pm1 Diagnosis - Pneumonia, unspecified organism pm1 Followup: pm1 - With: Emergency Department - When: As needed - Reason: Worsening of condition Followup: pm1 - With: Private Physician - When: 2 - 3 days - Reason: Recheck today's complaints, Continuance of care, Re-evaluation by your physician Discharge Instructions: - Discharge Summary Sheet pm1 - Community-Acquired Pneumonia, Adult pm1 Forms: - Medication Reconciliation Form pm1 - Thank You Letter pm1 - Antibiotic Education pm1 - Prescription Opioid Use pm1 Prescriptions: - Zithromax Z-Puneet 250 mg Oral Tablet - take 1 tablet by ORAL route as directed for 5 days Day 1 - take two (2) tablets pm1 one time. Day 2, 3, 4 , 5 take one (1) tablet once daily.; 6 tablet; Refills: 0, Product Selection Permitted NIH Stroke Scale - NIH Stroke Score Date: 08/03/2021 Time: 18:54 Total Score = 0 1a. Level of Consciousness (LOC) - 0(Alert) 1b. Level of Consciousness (LOC) (Month \\T\\ Age) - 0(Both) 1c. LOC Commands (Open \\T\\ Closes Eyes/Rough Planer Tender) - 0(Both) 2. Best Gaze (Lateral Gaze Paresis) - 0(Normal) 3. Visual Field Loss - 0(No visual loss) 4. Facial Palsy - 0(Normal) 5a. Left Arm: Motor (10-second hold) - 0(No drift) 5b. Right Arm: Motor (10-second hold) - 0(No drift) 6a. Left Leg: Motor (5-second hold - always test supine) - 0(No drift) 6b. Right Leg: Motor (5-second hold - always test supine) - 0(No drift) 7. Limb Ataxia (finger/nose \\T\\ heel/leonard - test with eyes open) - 0(Absent) 8. Sensory Loss (pinprick arms/legs/face) - 0(Normal) 9. Best Language: Aphasia (description/naming/reading) - 0(No aphasia) 10. Dysarthria (speech clarity - read or repeat words) - 0(Normal) 11. Extinction and Inattention (visual/tactile/auditory/spatial/personal) - 0(No abnormality) Initials: pm1 Addendum: 08/07/2021 21:29 Co-signature as Attending Physician, Pravin Waggoner MD. rn Signatures: Dispatcher [employer] EDMS Pravin Waggoner MD MD rn Marinas, Patrick, ESTER PARTS MANAGER pm1 Andres Copeland RN RN Jacy Maravilla mb7 Randi Holland RN RN bo
[2021-08-04 08:29] VITALS: TEMP 99.2; O2SAT 97
[2021-08-04 08:31] VITALS: BP 104/48
--- NOTE | 2021-08-05 11:04 | EKG ---
Test Date: 2021-08-03 Test Time: 18:16:03 Chicken Hatchery Helper: MB MEASUREMENT RESULTS: Intervals: Rate: 67 OR: 288 QRSD: 88 QT: 386 QTc: 407 [place]: P: 73 OR: 288 QRS: -2 T: -33 INTERPRETIVE STATEMENTS: Sinus rhythm with 1st degree AV block Low voltage QRS Cannot rule out Anterior infarct, age undetermined Abnormal ECG Compared to ECG 09/03/2014 13:58:53 Low QRS voltage now present Myocardial infarct finding now present Sinus bradycardia no longer present Electronically Signed On 08-05-21 10:58:01 CDT by Patrick Roach
== END 2021-08-03 23:23 | disposition home or self-care (01) ==
LOC: ER 18:05
DX: J18.9 Pneumonia, unspecified organism (principal); N40.0 Benign prostatic hyperplasia without lower urinary tract symptoms; Z20.822 Contact with and (suspected) exposure to COVID-19; Z88.8 Allergy status to other drugs, medicaments and biological substances
CPT/HCPCS: 96365; 96361; 93005; 87040 ×2; 87070; 87088; 85025; 87086; 36415; 85610; 82947; 87081; 83605; 85730; 80053; 0240U; 70450; 71045; 51702; 99284; J0456; J7050; J7030; 81003; 81015

== ENCOUNTER 2022-08-22 14:43 | Inpatient (IN) | payer OTHER ==
--- OUTSIDE RECORDS SUMMARY | 2022-08-24 11:13 | XMS REPORT | Continuity of Care Document ---
:1935 Author Organization [facility] Address [address] [facility] [address] [place] [id number] Care Team Providers Name Role Phone Jarred Woods Attending Clinician Unavailable Karen Webster Attending Clinician Unavailable Payers Payer Name Policy Type Policy Number Effective Date Expiration Date S trino AETNA MEDICARE C1 [id number] Common S pirit [facility] MEDICARE C1 [id number] [facility] [id number] Common S [facility] Problems Condition Condition Condition Status Onset Resolution Last Treating Co mments Source Name Details Category Date Date Treatment Clinician Date [id number] Compressio Problem C ommon [id number] n fracture Spiri t of L2 - [facility]I vertebra with 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 [facility] Orthostati Orthostati Problem C ommon c c Spirit hypotensio hypotensio - CHI n n [facility] Hearing Hearing Problem Common loss loss [facility] Anemia Anemia Problem Common [facility] Hyperlipid Hyperlipid Problem C omhussein emia emia [facility] 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 loss type Medical Center Cataract Cataract Problem Commo n [facility] Lower Benign Problem Common urinary prostatic [facility] tract hypertroph - CHI symptoms y with St due to [facility] urinary Medical prostatic tract Center hypertroph symptoms y (LUTS) [id number] Abnormal Problem Comm on renal Spirit function - CHI test [facility] [id number] Benign Problem Common prostatic Spirit hyperplasi - [facility]I a, St unspecifie [facility] d whether Medical [facility] urinary tract symptoms present Allergies, Adverse Reactions, Alerts Allergy Allergy Status Severity Reaction(s) Onset Inactive Treating Comm ents Source Name Type Date Date Clinician ezetimib ezetimib Active Unknown Commo n e e [facility] Social History Social Habit Start Date Stop Date Quantity Comments Source History of Tobacco Use Co mmon [facility] Sex Assigned At Com [facility] Smoking Status Start Date Stop Date Source Never Smoker [facility] Former Smoker 2021-06-26 00:00:00 2021-06-26 00:00:00 Common S pirit [facility] Medications Ordered Filled Start Stop Current Ordering Indication Dosage Frequency Signature Comments Components Source Medication Medication Date Date Medication? Clinician (SIG) Name Name traMADol traMADol 2021-04 No BID traMADol HCl 50 MG HCl 50 MG 0-04 HCl 50 MG 00:00: 00 traMADol traMADol 2021-04 No BID traMADol HCl 50 MG HCl 50 MG 0-04 HCl 50 MG 00:00: 00 traMADol traMADol No BID traMADol HCl 50 MG HCl 50 MG 8-09 HCl 50 MG 00:00: 00 Propranolol Propranolol 2021-1 No 1{table QD Propranolo HCl 20 MG HCl 20 MG 2-07 t} l HCl 20 00:00: MG 00 oxyCODONE-A oxyCODONE-A 2020-04 No 1{table oxyCODONE- cetaminophe cetaminophe 06-01 t_as_ne Acetaminop n 5-325 MG n 5-325 MG 00:00: eded} hen 5-325 00 MG Caltrate Caltrate Yes 1 tablet Co mmon 600+D 600+D Millender with a Spirit meal [facility] Multi For Multi For Yes not Comm on Him 50+ Him 50+ Millender defined S [facility] Aspir-81 Aspir-81 Yes 1 tablet [facility] Lipitor Lipitor Yes 1 tablet Comm on Millender [facility] Finasteride Finasteride Yes 1 tablet [facility] Chondroitin Chondroitin Yes not Common Sulfate Sulfate Millender defined S [facility] Inderal LA Inderal LA Yes 1 capsule [facility] Gabapentin Gabapentin Yes 1 capsule [facility] Clonazepam Clonazepam Yes 1 tablet Common Millender at bedtime Spir it [facility] Aspir-81 81 Aspir-81 81 No 1{table QD Aspir-81 MG MG t} 81 MG Lipitor 10 Lipitor 10 No 1{table QD Lipitor 10 MG MG t} MG clonazePAM clonazePAM No 1{table QD clonazePAM 0.5 MG 0.5 MG t_at_be 0.5 MG dtime} Gabapentin Gabapentin No 1{capsu TID Gabapentin 300 MG 300 MG le} 300 MG Caltrate Caltrate No 1{table QD Caltrate 600+D 600+D t_with_ 600+D 600-800 600-800 a_meal} 600-800 MG-UNIT MG-UNIT MG-UNIT Chondroitin Chondroitin No Chondroiti Sulfate 400 Sulfate 400 n Sulfate MG MG 400 MG Mirtazapine Mirtazapine No Mirtazapin e Finasteride Finasteride No 1{table QD Finasterid 5 MG 5 MG t} e 5 MG Finasteride Finasteride No 1{table QD Finasterid 5 MG 5 MG t} e 5 MG Mirtazapine Mirtazapine No 1{table QD Mirtazapin 7.5 MG 7.5 MG t_at_be e 7.5 MG dtime} Caltrate Caltrate No 1{table QD Caltrate 600+D 600+D t_with_ 600+D 600-800 600-800 a_meal} 600-800 MG-UNIT MG-UNIT MG-UNIT Multi For Multi For No Multi For Him 50+ - Him 50+ - Him 50+ - Aspir-81 81 Aspir-81 81 No 1{table QD Aspir-81 MG MG t} 81 MG Gabapentin Gabapentin No 1{capsu QD Gabapentin 100 MG 100 MG le} 100 MG PreserVisio PreserVisio No PreserVisi n AREDS n AREDS on AREDS clonazePAM clonazePAM No 1{table QD clonazePAM 0.5 MG 0.5 MG t_at_be 0.5 MG dtime} Gabapentin Gabapentin No 1{capsu TID Gabapentin 300 MG 300 MG le} 300 MG Propranolol Propranolol No 1{table BID Propranolo HCl 10 MG HCl 10 MG t} l HCl 10 MG Inderal LA Inderal LA No 1{capsu QD Inderal LA 60 MG 60 MG le} 60 MG Propranolol Propranolol No Propranolo HCl 20 MG HCl 20 MG l HCl 20 MG Lipitor 10 Lipitor 10 No 1{table QD Lipitor 10 MG MG t} MG Chondroitin Chondroitin No Chondroiti Sulfate 400 Sulfate 400 n Sulfate MG MG 400 MG Finasteride Finasteride No 1{table QD Finasterid 5 MG 5 MG t} e 5 MG Mirtazapine Mirtazapine No 1{table QD Mirtazapin 7.5 MG 7.5 MG t_at_be e 7.5 MG dtime} Caltrate Caltrate No 1{table QD Caltrate 600+D 600+D t_with_ 600+D 600-800 600-800 a_meal} 600-800 MG-UNIT MG-UNIT MG-UNIT Multi For Multi For No Multi For Him 50+ - Him 50+ - Him 50+ - Aspir-81 81 Aspir-81 81 No 1{table QD Aspir-81 MG MG t} 81 MG Gabapentin Gabapentin No 1{capsu QD Gabapentin 100 MG 100 MG le} 100 MG PreserVisio PreserVisio No PreserVisi n AREDS n AREDS on AREDS clonazePAM clonazePAM No 1{table QD clonazePAM 0.5 MG 0.5 MG t_at_be 0.5 MG dtime} Gabapentin Gabapentin No 1{capsu TID Gabapentin 300 MG 300 MG le} 300 MG Propranolol Propranolol No 1{table BID Propranolo HCl 10 MG HCl 10 MG t} l HCl 10 MG Inderal LA Inderal LA No 1{capsu QD Inderal LA 60 MG 60 MG le} 60 MG Propranolol Propranolol No Propranolo HCl 20 MG HCl 20 MG l HCl 20 MG Lipitor 10 Lipitor 10 No 1{table QD Lipitor 10 MG MG t} MG Chondroitin Chondroitin No Chondroiti Sulfate 400 Sulfate 400 n Sulfate MG MG 400 MG Propranolol Propranolol No 1{table BID Propranolo HCl 10 MG HCl 10 MG t} l HCl 10 MG Finasteride Finasteride No 1{table QD Finasterid 5 MG 5 MG t} e 5 MG Propranolol Propranolol No 1{table BID Propranolo HCl 10 MG HCl 10 MG t} l HCl 10 MG Finasteride Finasteride No 1{table QD Finasterid 5 MG 5 MG t} e 5 MG Propranolol Propranolol No 1{table BID Propranolo HCl 10 MG HCl 10 MG t} l HCl 10 MG Multi For Multi For No Multi For Him 50+ - Him 50+ - Him 50+ - Finasteride Finasteride No 1{table QD Finasterid 5 MG 5 MG t} e 5 MG Mirtazapine Mirtazapine No 1{table QD Mirtazapin 7.5 MG 7.5 MG t_at_be e 7.5 MG dtime} Gabapentin Gabapentin No 1{capsu QD Gabapentin 300 MG 300 MG le} 300 MG Finasteride Finasteride No 1{table QD Finasterid 5 MG 5 MG t} e 5 MG Aspirin Aspirin No Aspirin Mirtazapine Mirtazapine No 1{table QD Mirtazapin 7.5 MG 7.5 MG t_at_be e 7.5 MG dtime} Multi For Multi For No Multi For Him 50+ - Him 50+ - Him 50+ - Tylenol Tylenol No Tylenol Ketoconazol Ketoconazol No Ketoconazo e 2 % e 2 % le 2 % PreserVisio PreserVisio No PreserVisi n AREDS n AREDS on AREDS Glucosamine Glucosamine No Glucosamin e Propranolol Propranolol No 1{table BID Propranolo HCl 10 MG HCl 10 MG t} l HCl 10 MG Gabapentin Gabapentin No 1{capsu QD Gabapentin 300 MG 300 MG le} 300 MG Mirtazapine Mirtazapine No 1{table QD Mirtazapin 7.5 MG 7.5 MG t_at_be e 7.5 MG dtime} Aspirin Aspirin No Aspirin Propranolol Propranolol No 1{table BID Propranolo HCl 10 MG HCl 10 MG t} l HCl 10 MG Multi For Multi For No Multi For Him 50+ - Him 50+ - Him 50+ - Tylenol Tylenol No Tylenol Finasteride Finasteride No 1{table QD Finasterid 5 MG 5 MG t} e 5 MG PreserVisio PreserVisio No PreserVisi n AREDS n AREDS on AREDS Glucosamine Glucosamine No Glucosamin e Ketoconazol Ketoconazol No Ketoconazo e 2 % e 2 % le 2 % Caltrate Caltrate No 1{table QD Caltrate 600+D 600+D t_with_ 600+D 600-800 600-800 a_meal} 600-800 MG-UNIT MG-UNIT MG-UNIT Aspir-81 81 Aspir-81 81 No 1{table QD Aspir-81 MG MG t} 81 MG Inderal LA Inderal LA No 1{capsu QD Inderal LA 60 MG 60 MG le} 60 MG Lipitor 10 Lipitor 10 No 1{table QD Lipitor 10 MG MG t} MG Finasteride Finasteride No 1{table QD Finasterid 5 MG 5 MG t} e 5 MG Multi For Multi For No Multi For Him 50+ - Him 50+ - Him 50+ - Chondroitin Chondroitin No Chondroiti Sulfate 400 Sulfate 400 n Sulfate MG MG 400 MG clonazePAM clonazePAM No 1{table QD clonazePAM 0.5 MG 0.5 MG t_at_be 0.5 MG dtime} Gabapentin Gabapentin No 1{capsu TID Gabapentin 300 MG 300 MG le} 300 MG Caltrate Caltrate No 1{table QD Caltrate 600+D 600+D t_with_ 600+D 600-800 600-800 a_meal} 600-800 MG-UNIT MG-UNIT MG-UNIT Aspir-81 81 Aspir-81 81 No 1{table QD Aspir-81 MG MG t} 81 MG Inderal LA Inderal LA No 1{capsu QD Inderal LA 60 MG 60 MG le} 60 MG Lipitor 10 Lipitor 10 No 1{table QD Lipitor 10 MG MG t} MG Finasteride Finasteride No 1{table QD Finasterid 5 MG 5 MG t} e 5 MG Multi For Multi For No Multi For Him 50+ - Him 50+ - Him 50+ - Chondroitin Chondroitin No Chondroiti Sulfate 400 Sulfate 400 n Sulfate MG MG 400 MG clonazePAM clonazePAM No 1{table QD clonazePAM 0.5 MG 0.5 MG t_at_be 0.5 MG dtime} Gabapentin Gabapentin No 1{capsu TID Gabapentin 300 MG 300 MG le} 300 MG Caltrate Caltrate No 1{table QD Caltrate 600+D 600+D t_with_ 600+D 600-800 600-800 a_meal} 600-800 MG-UNIT MG-UNIT MG-UNIT Aspir-81 81 Aspir-81 81 No 1{table QD Aspir-81 MG MG t} 81 MG Inderal LA Inderal LA No 1{capsu QD Inderal LA 60 MG 60 MG le} 60 MG Lipitor 10 Lipitor 10 No 1{table QD Lipitor 10 MG MG t} MG Finasteride Finasteride No 1{table QD Finasterid 5 MG 5 MG t} e 5 MG Multi For Multi For No Multi For Him 50+ - Him 50+ - Him 50+ - Chondroitin Chondroitin No Chondroiti Sulfate 400 Sulfate 400 n Sulfate MG MG 400 MG clonazePAM clonazePAM No 1{table QD clonazePAM 0.5 MG 0.5 MG t_at_be 0.5 MG dtime} Gabapentin Gabapentin No 1{capsu TID Gabapentin 300 MG 300 MG le} 300 MG Multi For Multi For No Multi For Him 50+ - Him 50+ - Him 50+ - Inderal LA Inderal LA No 1{capsu QD Inderal LA 60 MG 60 MG le} 60 MG Immunizations Ordered Immunization Filled Immunization Date Status Commen ts Source Name Name FluAD FluAD 2021-01-22 Completed [facility] 13:08:00 - [facility] FluAD FluAD 2021-01-22 Completed [facility] 13:08:00 - [facility] FluAD FluAD 2021-01-22 Completed [facility] 13:08:00 - [facility] FluAD FluAD 2021-01-22 Completed [facility] 13:08:00 - [facility] FluAD FluAD 2021-01-22 Completed [facility] 13:08:00 - [facility] FluAD FluAD 2021-01-22 Completed [facility] 13:08:00 - [facility] FluAD FluAD 2021-01-22 Completed [facility] 13:08:00 - [facility] FluAD FluAD 2021-01-22 Completed [facility] 13:08:00 - [facility] FLUZONE HIGH DOSE FLUZONE HIGH DOSE 2020-01-08 Completed [facility] OVER 65 OVER 65 16:10:00 - [facility] FLUZONE HIGH DOSE FLUZONE HIGH DOSE 2020-01-08 Completed [facility] OVER 65 OVER 65 16:10:00 - [facility] FLUZONE HIGH DOSE FLUZONE HIGH DOSE 2020-01-08 Completed [facility] OVER 65 OVER 65 16:10:00 - [facility] FLUZONE HIGH DOSE FLUZONE HIGH DOSE 2020-01-08 Completed [facility] OVER 65 OVER 65 16:10:00 - [facility] FLUZONE HIGH DOSE FLUZONE HIGH DOSE 2020-01-08 Completed [facility] OVER 65 OVER 65 16:10:00 - [facility] FLUZONE HIGH DOSE FLUZONE HIGH DOSE 2020-01-08 Completed [facility] OVER 65 OVER 65 16:10:00 - [facility] FLUZONE HIGH DOSE FLUZONE HIGH DOSE 2020-01-08 Completed [facility] OVER 65 OVER 65 16:10:00 - [facility] FLUZONE HIGH DOSE FLUZONE HIGH DOSE 2020-01-08 Completed [facility] OVER 65 OVER 65 16:10:00 - [facility] FLUZONE HIGH DOSE FLUZONE HIGH DOSE 2020-01-08 Completed [facility] OVER 65 OVER 65 16:10:00 - [facility] FLUZONE HIGH DOSE FLUZONE HIGH DOSE 2020-01-08 Completed [facility] OVER 65 OVER 65 16:10:00 - [facility] FLUZONE HIGH DOSE FLUZONE HIGH DOSE 2020-01-08 Completed [facility] OVER 65 OVER 65 16:10:00 [facility] Vital Signs Vital Name Observation Time Observation Value Comments Source height 2022-01-26 15:50:00 71.5 [in_i] Common S pirit - [facility] weight 2022-01-26 15:50:00 195.2 [lb_av] Common [facility] - [facility] temperature 2022-01-26 15:50:00 97.0 [degF] Common S pirit [facility] bmi 2022-01-26 15:50:00 26.84 kg/m2 Common S pirit - [facility] oximetry 2022-01-26 15:50:00 96 % Common S pirit [facility] respiratory rate 2022-01-26 15:50:00 17 /min Comm on [facility] blood pressure 2022-01-26 15:50:00 125 mm[Hg] Common [facility] - systolic [facility] blood pressure 2022-01-26 15:50:00 68 mm[Hg] [facility] - diastolic [facility] height 2021-12-01 07:40:00 71.5 [in_i] [facility] weight 2021-12-01 07:40:00 194 [lb_av] Common S pirit [facility] temperature 2021-12-01 07:40:00 98 [degF] [facility] bmi 2021-12-01 07:40:00 26.68 kg/m2 Common S pirit - [facility] blood pressure 2021-12-01 07:40:00 122 mm[Hg] [facility] - systolic [facility] blood pressure 2021-12-01 07:40:00 60 mm[Hg] [facility] - diastolic [facility] height 2021-11-03 09:20:00 71.5 [in_i] Common S pirit - [facility] weight 2021-11-03 09:20:00 194.7 [lb_av] Common [facility] temperature 2021-11-03 09:20:00 97.7 [degF] Common S pirit [facility] bmi 2021-11-03 09:20:00 26.77 kg/m2 Common S pirit - [facility] oximetry 2021-11-03 09:20:00 91 % Common S [facility] respiratory rate 2021-11-03 09:20:00 16 /min Comm on [facility] blood pressure 2021-11-03 09:20:00 124 mm[Hg] Common [facility] - systolic [facility] blood pressure 2021-11-03 09:20:00 59 mm[Hg] Common [facility] - diastolic [facility] height 2021-06-30 13:10:00 71.5 [in_i] Common [facility] weight 2021-06-30 13:10:00 189.9 [lb_av] [facility] temperature 2021-06-30 13:10:00 97.2 [degF] [facility] bmi 2021-06-30 13:10:00 26.11 kg/m2 Common [facility] oximetry 2021-06-30 13:10:00 98 % [facility] respiratory rate 2021-06-30 13:10:00 17 /min Comm on [facility] blood pressure 2021-06-30 13:10:00 126 mm[Hg] Common [facility] - systolic [facility] blood pressure 2021-06-30 13:10:00 61 mm[Hg] Common [facility] - diastolic [facility] height 2021-03-31 13:00:00 71.5 [in_i] Common [facility] weight 2021-03-31 13:00:00 183.9 [lb_av] [facility] temperature 2021-03-31 13:00:00 97.3 [degF] Common [facility] bmi 2021-03-31 13:00:00 25.29 kg/m2 [facility] oximetry 2021-03-31 13:00:00 97 % [facility] respiratory rate 2021-03-31 13:00:00 17 /min Comm on [facility] blood pressure 2021-03-31 13:00:00 120 mm[Hg] Common [facility] - systolic [facility] blood pressure 2021-03-31 13:00:00 61 mm[Hg] Common [facility] - diastolic [facility] Procedures This patient has no known procedures. Encounters Start End Encounter Admission Attending Care Care Encounter Source Date/Time Date/Time Type Type Clinicians Facility Department ID 2022-08-09 Outpatient Woods, STLMLC STLMLC [id number] Common 08:27:00 Jarred [id number] [facility] 2022-01-25 Outpatient Woods, STLMLC STLMLC [id number] Common 14:59:00 Jarred [facility] 2021-12-15 Outpatient Woods, STLMLC STLMLC [id number] Common 14:06:00 Jarred [facility] 2021-06-30 Outpatient Woods, STLMLC STLMLC [id number] Common 13:05:00 Jarred [facility] 2021-06-29 Outpatient Woods, STLMLC STLMLC [id number] Common 09:17:00 Jarrde [facility] 2021-05-20 Outpatient Woods, STLMLC STLMLC [id number] Common 14:00:18 Jarred [facility] 2021-05-20 Outpatient Woods, STLMLC STLMLC [id number] Common 13:58:47 Jarred [id number] [facility] 2021-05-20 Outpatient Woods, STLMLC STLMLC [id number] Common 13:35:19 Jarred [id number] [facility] 2021-05-20 Outpatient Woods, STLMLC STLMLC [id number] Common 13:11:28 Jarred [id number] [facility] 2021-05-20 Outpatient Woods, STLMLC STLMLC [id number] Common 12:31:25 Jarred [id number] [facility] 2021-05-20 Outpatient [place], STLMLC STLMLC [id number] Common 12:31:02 [facility] [id number] [facility] 2021-05-20 Outpatient Woods, STLMLC STLMLC [id number] Common 12:21:18 [facility] [id number] [facility] 2021-05-20 Outpatient Millender, STLMLC STLMLC [id number] Common 11:08:37 11909 [facility] 2021-05-20 Outpatient Millender, STLMLC STLMLC [id number] Common 11:05:50 [id number] [facility] 2021-05-20 Outpatient Millender, STLMLC STLMLC [id number] Common 11:03:28 [id number] [facility] 2021-05-20 Outpatient Millender, STLMLC STLMLC [id number] Common 11:02:51 [id number] [facility] 2022-05-26 2022-05-26 (TEL) STLMLC STLMLC [id number] Co mmon 00:00:00 00:00:00 Spirit [facility]I [facility] 2022-01-26 2022-01-26 OFFICE STLMLC STLMLC [id number] Co mmon 00:00:00 00:00:00 VISIT Spirit ESTAB PT - CHI LEVEL 4 [facility] 2021-12-01 2021-12-01 OFFICE STLMLC STLMLC [id number] Co mmon 00:00:00 00:00:00 VISIT [facility] ESTAB PT - CHI LEVEL 4 [facility] 2021-11-03 2021-11-03 OFFICE STLMLC STLMLC [id number] Co mmon 00:00:00 00:00:00 VISIT Spirit ESTAB PT - CHI LEVEL 4 [facility] 2021-11-03 2021-11-03 SUB ANNUAL STLMLC STLMLC [id number] Common 00:00:00 00:00:00 MCR Spirit WELLNESS - CHI VISIT [facility] 2021-09-02 2021-09-02 (TEL) STLMLC STLMLC [id number] Co mmon 00:00:00 00:00:00 [facility] 2021-06-30 2021-06-30 OFFICE STLMLC STLMLC [id number] Co mmon 00:00:00 00:00:00 VISIT [facility] ESTAB PT - CHI LEVEL 4 [facility] 2021-03-31 2021-03-31 OFFICE STLMLC STLMLC [id number] Co mmon 00:00:00 00:00:00 VISIT [facility] ESTAB PT - CHI LEVEL 4 [facility] 2021-01-30 2021-01-30 (TEL) STLMLC STLMLC [id number] Co mmon 00:00:00 00:00:00 [facility] 2020-12-01 2020-12-01 (TEL) STLMLC STLMLC [id number] Co mmon 00:00:00 00:00:00 [facility] 2020-11-28 2020-11-28 (TEL) STLMLC STLMLC [id number] Co mmon 00:00:00 00:00:00 [facility] 2020-09-30 2020-09-30 Outpatient STLMLC STLMLC [id number] Common 00:00:00 00:00:00 [facility] 2020-09-30 2020-09-30 Outpatient STLMLC STLMLC [id number] Common 00:00:00 00:00:00 [facility] 2020-08-22 2020-08-22 Outpatient STLMLC STLMLC [id number] Common 00:00:00 00:00:00 [facility] 2020-06-14 2020-06-14 Outpatient STLMLC STLMLC [id number] Common 00:00:00 00:00:00 [facility] 2020-01-08 2020-01-08 Outpatient STLMLC STLMLC [id number] Common 00:00:00 00:00:00 [facility] 2019-09-25 2019-09-25 [id number] Common 10:40:00 10:40:00 [facility] 2019-06-13 2019-06-13 [facility] [id number] Common 09:57:00 09:57:00 t [facility] [address] [facility] 2019-06-12 2019-06-12 [facility] [id number] Common 15:45:00 15:45:00 t [facility] [address] [facility] 2018-11-21 2018-11-21 [facility] [id number] Common 08:45:00 08:45:00 t [facility] [address] [facility] 2018-08-22 2018-08-22 [facility] [id number] Common 10:00:00 10:00:[address] [facility] 2017-08-23 2017-08-23 [facility] [id number] Common 15:00:00 15:00:00 t [facility] [address] [facility] Results This patient has no known results.
[2022-08-24] MEDS ORDERED: BISACODYL 10 MG RECTAL SUPP PR PRN (11:42)
[2022-08-24] MEDS ORDERED: CYCLOBENZAPRINE 10 MG TAB PO PRN (11:43)
[2022-08-24] MEDS ORDERED: POLYETHYL GLY 3350 17 GM/DOSE PO PRN (11:48)
[2022-08-24] MEDS ORDERED: TRAMADOL HCL 50 MG TAB PO PRN (11:53)
[2022-08-24 14:13] VITALS: BMI 27.1
[2022-08-24] MEDS ORDERED: DOCUSATE NA/SENNA CONC 1 TAB PO PRN (15:41)
[2022-08-24] MEDS: DOCUSATE NA 100 MG CAP PO SCH (19:14)
[2022-08-24] MEDS: MAGNESIUM OXIDE 400 MG TAB PO SCH (19:15)
[2022-08-24] MEDS: ATORVASTATIN 20 MG TAB PO SCH (19:15)
[2022-08-24] MEDS: MIRTAZAPINE 15 MG TAB PO SCH (19:15)
[2022-08-24 19:42] LABS: Specific Gravity 1.018 (1.005-1.030); Urine Bacteria None Seen /HPF (<20); Urine Bilirubin NEGATIVE (Negative); Urine Blood Negative (Negative); Urine Clarity Clear (Clear); Urine Color Light-Yellow (Yellow); Urine Glucose NEGATIVE (Negative); Urine Protein NEGATIVE (Negative); Urine RBC <5 /HPF (None Seen); Urine Urobilinogen Normal (Normal); Urine pH 5.5 (5.0-7.0)
--- NOTE | 2022-08-25 00:53 | HP ---
Date of Admission: 08/24/2022 Chief Complaint: "I had a stroke." History Of Present Illness: Mr. Spencer is an 86-year-old patient with squamous cell carcinoma, c hronic back pain following a fall, benign essential tremor, and spinal stenosis who fell initially in October of 2020 and had lumbar spinal fracture. He was managed over the time by Pain Management with m ultiple steroid shots in his lower back and eventually had lumbar decompression and kyphoplasty. He did well, but did have complications of hypoxia with low oxygenation, low red blood cells down to 3.0 7, low hemoglobin to 10, and abnormal electrolytes. He also suffered dehydration. Creatinine ranged from 1.56 to 1.81. However, while at [facility], he had sudden onset of right-sided weakne ss requiring maximum assistance for any transfers and his brain MRI identified a left hemispheric str amy. MRI of his lumbar spine identified worsening central canal stenosis. As a result, he required maximal assistance for transfers performing ADLs and ambulation. In addition, his multiple comorbid conditions do require frequent medical followup with management. He is also diagnosed with depressio n and significant ongoing lower back pain. As a result, he is determined to be an appropriate candid ate for inpatient rehabilitation. Past Medical History: Spinal stenosis, essential tremors, benign prostatic hypertrophy, squamous efren l carcinoma, and chronic constipation. Past Surgical History: Appendectomy, tonsillectomy, L4-5 decompression surgery, L1 and L2 kyphoplast y, and meniscus tear. X-ray/imaging: X-ray single-view on 08/18/2022 showed no acute abnormalities. MRI of the C-spine wi thout contrast on 08/19/2022 showed multilevel spondylitic changes contributing to varying degrees to neural foraminal narrowing, most prominent at C5-6 and to a lesser degree at C6-7. MRI of the brain without contrast on 08/19/2022 shows small subacute to acute infarct in the left posterior centrum s emiovale. MRI of the lumbar spine on 08/19/2022 showed postsurgical changes with posterior decompres janell opposite L4, suspected small right dorsolateral subdural fluid collection at opposite L2 and L3 measuring 8 mm in thickness. There is a homogeneous T2 hyperintense collection along the posterior d ecompression tract as above and it is with epidural component exerting some mass effect upon the dors al aspect of the thoracic sac resulting in moderate effacement of the canal along the right lateral r ecess. These findings are accompanied by ligamentum flavum buckling at L-4 resulting in moderate paresh tral canal stenosis, which had worsened since the comparison exam. His carotid ultrasound studies sh owed mild arthrosclerotic changes in the carotid bifurcations with less than 50% stenosis in the inte rnal carotid arteries bilaterally. Anterior grade flow was noted in both vertebral arteries. Allergies: AMITRIPTYLINE, EZETIMIBE, LATEX, LOVASTATIN, AND ENVIRONMENTAL ALLERGENS. Social History: No alcohol, tobacco, or IV drug use. The patient resides at home with his . Family History: Noncontributory. Review of Systems: Currently, he denies any recent fevers or chills. There is moderate back pain, weakness in the right lower extremity. There is mild myalgia and arthralgia. He does have a graft on his face. No genit ourinary, gastrointestinal, or psychiatric complaints. Laboratory Studies: White blood cell count 8.2, hemoglobin 11.4, and platelets 199. INR 0.97. Chem istry: Sodium 133, potassium 4.0, chloride 103, carbon dioxide 27, creatinine 1.47, glucose 113, lucia cium 8.4, phosphorus 3.1, magnesium 2.2, and albumin 2.8. TSH low at 0.202, free T3 low at 1.16, and free T4 normal at 1.21. Physical Examination: Vital Signs: Blood pressure 156/72, pulse of 73, respiratory rate of 16, temperature 97.8, and oxyge n saturation 96%. General: Mr. Spencer is sitting in the gym, doing therapy. HEENT: He is normocephalic, atraumatic. Sclerae appears anicteric. Oropharynx is moist. Neck: Supple. Chest: Clear. Heart: Regular. Abdomen: Soft. Extremities: No significant edema or cyanosis. He does have mild right-sided weakness noted in the face, arm, and leg; however, he has recovered very already from that stroke. Otherwise, there is reggie e pain in the left shoulder area where there is a pain patch. There is no area of point tenderness s uch as a trigger point. Current Level Of Functioning: Today he did ambulate 200 feet twice, another 120 feet and 100 feet wi th minimal assistance using a rolling walker. He was able to ascend and descend 5 steps with minimum assistance using bilateral handrails. He did [id number]-[id number] transfer with minimum assistance for fela nk assistance. With his occupational therapy, he did don and doff lower body dressing by stepping ou t and did complete shower with minimum assistance for back and buttocks cleaning. Independently did drying off, for balance with 1 hand on a grab bar. He was evaluated by Speech Therapy with long-term goals to improve cognitive functioning to minimum to mod assist and to promote safety awareness and independence as he returns home. Rehabilitation And Medical Assessment And Plan: His rehabilitation impairment category is 01 stroke. His rehabilitation impairment group code is 01.2 right body involvement, left brain. His etiologic diagnosis is small ulzaqccy-kn-aycql infarct in the left posterior centrum semiovale. Active comorb ids are benign prostatic hypertrophy, chronic anemia, chronic low back pain, chronic kidney disease, decreased mobility, decrease in physical functioning, difficulty walking, dyslipidemia, hyponatremia, and depression. He also has a lumbar compression status post decompression at L4-5. Plan: 1.He will have physical, occupational, and speech therapy 3.5 hours, 5 of 7 days. 2.For dyslipidemia, Lipitor 20 mg at night. 3.For stroke risk reduction, aspirin 81 mg daily. 4.For pain management, [place] 5/325 every 4 hours as needed. 5.For constipation, Dulcolax 10 mg per rectum as needed, Senokot-S 2 at night, and milk of magnesia as needed. 6.In addition to aspirin, he will have Plavix 75 mg daily for stroke risk reduction. 7.Remeron for insomnia. Impact Of Comorbidities: Given his spinal stenosis and compression fractures, he does have chronic b ack pain and that will be mitigated by Pain Management with medications as listed above including elle cotics, but his dose will be used sparingly and lidocaine patches. He has essential tremor and he will be treated with primidone 25 mg every other day. Rehab Specific Plan: 1.Mr. Spencer will have physical, occupational, and speech therapy for 3.5 hours, 5 of 7 days to improve his balance, his gait, his donning and doffing clothes, his transfers, his ability to ambulat e over 250 feet with independence, go up and down 10 steps with independence, and perform cognitive f unctioning independently and safely for him to do so at home as well. 2.He will have [facility] to address his medical needs, have his blood drawn and follow nutriti onal status, follow his kidney function and hemoglobin and hematocrit and nutritional status. 3.Mr. Spencer has a good understanding of the admission and discharge process to the inpatient re habilitation unit. He has a potential to make a good improvement in his functioning to return to an independent level of functioning with the multidisciplinary approach including physical, occupational , and speech therapy. If need be, his assistance from the Respiratory Service, Nutrition Service, Wo und Care Service, and Cardiac Service will be requested. Given his complex medical condition and ris k of further complications, rehabilitation cannot be safely or effectively performed at a lower level facility such as [facility]. Barriers To Discharge: At this point, he does have tremors, which are mitigated by primidone and vida t will be continued. He also has back pain with lumbar compression fractures. Pain will be addresse d as mentioned above with patches and sparing use of narcotic medications and gabapentin if need be. Estimated Length Of Stay: About 12 days. Disposition: Home. Prognosis: Good. Rehabilitation Goals: 1.To dress upper and lower body independently. 2.Transfer from bed, toilet, chair, and wheelchair independently. 3.Perform showering and toileting independently. 4.Ambulate 250 feet independently with rolling walker. 5.Up and down 10 steps independently. 6.Perform cognitive functioning independently. I acknowledge I have personally performed a full physical examination on Mr. Spencer, no later vida n 24 hours after admission to the inpatient rehabilitation unit and determined that he is able to angelita erate the above course of treatment at an intensive level for a reasonable time. A detailed individu alized plan of care for him will be completed by hospital day 4 based on the pre-admission screen, hi story and physical, and therapy evaluations. ANI/LEANNE Voice ID: [id number]
[2022-08-25 04:51] LABS: Absolute Lymphocytes (CBC) 2.3 K/uL (0.7-4.9); Hematocrit 32.9 % (39.6-49.0); Lymphocytes % 31.5 % (15.3-44.8); MCV 98.6 fL (80-100); MPV 6.6 fL (7.6-11.3); RBC Red Blood Cell Count 3.34 M/uL (4.33-5.43)
[2022-08-25 05:18] LABS: Albumin 2.7 g/dL (3.4-5.0); Magnesium 2.3 mg/dL (1.6-2.4); Potassium 3.7 mEq/L (3.5-5.1); Prealbumin 21.2 mg/dL (20-40)
[2022-08-25] MEDS: PRIMIDONE 50 MG PO SCH (07:19)
[2022-08-25] MEDS: GLUCOSAM/CHONDROI 500mg-400mg PO SCH (07:19)
[2022-08-25] MEDS: POLYETHYL GLY 3350 17 GM/DOSE PO SCH (07:20)
[2022-08-25] MEDS: FOLIC ACID 1 MG TABLET PO SCH (07:20)
[2022-08-25] MEDS: ASPIRIN EC 81 MG TAB PO SCH (07:20)
[2022-08-25] MEDS: MULTIVITAMIN TAB PO SCH (07:20)
[2022-08-25] MEDS: MAGNESIUM OXIDE 400 MG TAB PO SCH ×2 (07:21→20:37)
[2022-08-25] MEDS: FINASTERIDE 5 MG TAB PO SCH (07:21)
[2022-08-25] MEDS: DOCUSATE NA 100 MG CAP PO SCH ×2 (07:21→20:37)
[2022-08-25] MEDS: CLOPIDOGREL 75 MG TABLET PO SCH (07:22)
[2022-08-25] MEDS: PRESERVISION AREDS PO SCH (08:00)
[2022-08-25] MEDS: TURMERIC ROOT EXTRACT 500 MG PO SCH (08:00)
[2022-08-25] MEDS ORDERED: PRIMIDONE 50 MG PO SCH (08:00)
[2022-08-25] MEDS: HYDROCODONE/APAP 5/325 MG TAB PO PRN ×3 (08:26→20:37)
[2022-08-25] MEDS: LIDOCAINE 4% PATCH TOP SCH (10:00)
[2022-08-25] MEDS ORDERED: CRANBERRY FRUIT EXTRACT 200 MG CAP PO SCH (20:00)
[2022-08-25] MEDS: MIRTAZAPINE 15 MG TAB PO SCH (20:37)
[2022-08-25] MEDS: ATORVASTATIN 20 MG TAB PO SCH (20:37)
[2022-08-25] MEDS ORDERED: TAMSULOSIN 0.4 MG SR CAP PO SCH (21:00)
--- NOTE | 2022-08-25 22:19 | PN ---
Date of Progress Note: 08/25/2022 Time Of Service: 1:15 p.m. Subjective: Mr. Spencer is doing well. He has no new complaints. He does report improving coord ination and strength in the right upper extremity which was affected by a stroke which was on the lef t brain. He has no other complaints on subjective. Review of Systems: No fevers, chills. No nausea, vomiting, myalgias, arthralgias. No significant rash, headache, weigh t change. Physical Examination: Vital Signs: Blood pressure 144/69, pulse of 61, respiratory rate 16, temperature 97.9. General: Mr. Spencer is sitting in a chair, getting ready for therapy. He is in no acute distres s. HEENT: He appears normocephalic, atraumatic. Sclerae anicteric. Oropharynx is moist. Neck: Supple. Chest: Clear. Heart: Regular. Extremities: No significant edema or cyanosis. His right upper extremity and lower extremity 4/5 wi th some slight decrease in sensation. Otherwise, no new deficits. Laboratory Studies: White blood cell count 7.3, hemoglobin 11.0, platelets 222. Sodium 134, potassi um 3.7, chloride 104, carbon dioxide 27, BUN 29, creatinine 1.55. Prealbumin 21.2, albumin 2.7. Uri nalysis is completely normal. The nursing staff does report urinary frequency. He may be put on Flomax 0.4 mg at night. X-ray/imaging: None. Medications: [place] 5/325 every 4 hours as needed, aspirin 81 mg daily, Lipitor 20 mg at bedtime, Dul colax 10 mg per rectum for constipation as needed, Plavix 75 mg daily, Flexeril 10 mg twice daily for muscle spasms, Colace 100 mg twice daily, Proscar 5 mg daily, folic acid 1 mg daily, glucosamine and chondroitin 500/400 one capsule daily, lidocaine patch apply topically daily, magnesium oxide 400 mg twice daily, Remeron 50 mg at bedtime, Centrum Silver 1 tablet daily, GlycoLax 17 g daily, Senokot-S 2 at bedtime, Flomax 0.4 mg at bedtime. Current Functional Status: Currently, ambulated 300 feet, another 250 feet and 150 feet with contact guard assistance using a rolling walker. He ascended and descended 15 steps with contact guard assi stance using bilateral handrails. He did [id number]-it-[id number] transfers using grab bars with supervision. C ompleted 8 sit to stand transfers on rolling walker with 1 rest break. With speech pathology, he wor ked on short-term memory, working memory strategies, orientation skills, and auditory comprehension t asks. He did require moderate assistance with short-term memory tasks. He could recall 4 out of 4 o bjects independently after 2 attempts with a 3-minute interval. Progress Towards Rehabilitation Goals: Mr. Spencer is already making excellent progress towards h is goals of becoming independent with upper and lower body dressing, transferring, toileting, showeri ng, ambulating 250 feet independently up and down 10 steps independently and performing cognitive fun ctioning independently. Assessment: Mr. Spencer is an 86-year-old patient admitted to the rehabilitation unit with a left hemispheric stroke and mild right upper and lower extremity weakness, incoordination, sensory defici ts. He does have prostate hypertrophy, chronic anemia, chronic low back pain, chronic kidney disease , decreased mobility, dyslipidemia, hyponatremia, and depression along with lumbar compression status post decompression at L4-L5. Benign essential tremor. Plan: 1.Continue with physical, occupational, and speech therapy 3.5 hours, 5 of 7 days. 2.Continue with Lipitor for dyslipidemia, aspirin for stroke risk reduction. Eliquis 2.5 mg twice d aily for DVT risk reduction. Dulcolax 10 mg per rectum along with Senokot for constipation. Plavix as well as the aspirin for stroke risk reduction. 3.He will continue with primidone 25 mg daily. Comorbidities That Continue To Impact His Rehabilitation Process: At this point, he is making great progress. Cognitive functioning, he is doing well. It is not negatively impacting his rehabilitatio n. He does have essential tremor for which actually is on primidone 25 mg daily. He is actually doing well with that. LB/MODL Voice ID: [id number] Report ID: [id number]
[2022-08-26] MEDS: PRESERVISION AREDS PO SCH (08:00)
[2022-08-26] MEDS: TURMERIC ROOT EXTRACT 500 MG PO SCH (08:00)
[2022-08-26] MEDS: MAGNESIUM OXIDE 400 MG TAB PO SCH ×2 (08:23→19:27)
[2022-08-26] MEDS: CRANBERRY FRUIT EXTRACT 200 MG CAP PO SCH ×2 (08:23→19:28)
[2022-08-26] MEDS: FOLIC ACID 1 MG TABLET PO SCH (08:23)
[2022-08-26] MEDS: DOCUSATE NA 100 MG CAP PO SCH ×2 (08:23→19:28)
[2022-08-26] MEDS: MULTIVITAMIN TAB PO SCH (08:23)
[2022-08-26] MEDS: POLYETHYL GLY 3350 17 GM/DOSE PO SCH (08:23)
[2022-08-26] MEDS: LIDOCAINE 4% PATCH TOP SCH (08:24)
[2022-08-26] MEDS: ASPIRIN EC 81 MG TAB PO SCH (08:24)
[2022-08-26] MEDS: FINASTERIDE 5 MG TAB PO SCH (08:24)
[2022-08-26] MEDS: CLOPIDOGREL 75 MG TABLET PO SCH (08:24)
[2022-08-26] MEDS: GLUCOSAM/CHONDROI 500mg-400mg PO SCH (09:41)
[2022-08-26] MEDS: MIRTAZAPINE 15 MG TAB PO SCH (19:28)
[2022-08-26] MEDS: ATORVASTATIN 20 MG TAB PO SCH (19:28)
--- NOTE | 2022-08-26 21:27 | PN ---
Date of Progress Note: 08/26/2022 Time Of Service: 1:00 p.m. Subjective: Mr. Spencer is doing fairly well, although today, he did have some complaints of bein g more fatigued than usual, but otherwise is working very hard and knows his discharge is coming up v joey soon in 2 days. Review of Systems: No fevers, chills, nausea, vomiting, rash, psychiatric issues. Physical Examination: Vital Signs: Blood pressure 130/60, pulse 71, respiratory rate 18, temperature 97.7. In terms of or thostatics, while lying, blood pressure 130/60, pulse 71; sitting, blood pressure 130/59, pulse 69; s tanding blood pressure 125/63, pulse 78. He was not symptomatic. Laboratory Studies: White blood cell count 7.3, hemoglobin 11, platelets 222. Sodium 134, potassium 3.7, chloride 104, carbon dioxide 27, BUN 29, creatinine 1.55. Prealbumin 21.2, albumin 2.7, calciu m 8.6, magnesium 2.3. X-ray Imaging: None. Medications: His medications have been reviewed and remained unchanged. Current Functional Status: Today, he did supine to sit transfers with standby assistance and verbal cues. Multiple sit to stand transfers with standby assistance using a rolling walker. He ambulated 400 feet, another 250 feet, and 150 feet with contact guard assistance using a rolling walker. He as cended and descended 15 steps with bilateral handrails, standby assistance. With occupational therap y, performed shower independently with good safety and stood to perform the perineal care without los s of balance, bending and squatting to reach buttocks. He donned the upper and lower body clothing i ndependently. While standing, had good functional reach down to don briefs without loss of balance. Verbal cues needed for orientation of the brief. With Speech, he worked on short-term memory and st rategies for short-term memory was orientation skills, auditory comprehension skills. He did require minimum assistance with orientation skills and auditory comprehension. Good independent recall 3 of 3 items after 2 attempts with a 5-minute interval. Progress Towards Rehabilitation Goals: Mr. Spencer is making very good progress towards his goals of becoming independent with upper and lower body dressing, toileting, showering, performing cogniti ve functioning. Assessment: Mr. Spencer is an 86-year-old patient in the rehabilitation unit with left hemispheri c stroke and some right-sided incoordination and weakness from which he is recovering very well and d oing very well. He does have prostate hypertrophy, chronic anemia, low back pain, chronic kidney dis ease, dyslipidemia, hyponatremia, and depression. Lumbar decompression at L4-L5 for lumbar stenosis and benign essential tremor. Plan: 1.Continue with physical, occupational, and speech therapy, 3.5 hours, 5 of 7 days. 2.Continue all his medications for his comorbid conditions including Lipitor, Eliquis, Dulcolax, Sen okot, Plavix, aspirin, and primidone. Comorbids That Continue To Impact Rehabilitation Process: He is doing very well and his tremors well mitigated by primidone do not negatively impact his rehabilitation. LB/MODL Voice ID: [id number] Report ID: [id number]
[2022-08-27] MEDS: TURMERIC ROOT EXTRACT 500 MG PO SCH (08:00)
[2022-08-27] MEDS: LIDOCAINE 4% PATCH TOP SCH (08:18)
[2022-08-27] MEDS: FINASTERIDE 5 MG TAB PO SCH (08:19)
[2022-08-27] MEDS: FOLIC ACID 1 MG TABLET PO SCH (08:19)
[2022-08-27] MEDS: CRANBERRY FRUIT EXTRACT 200 MG CAP PO SCH ×2 (08:19→20:00)
[2022-08-27] MEDS: POLYETHYL GLY 3350 17 GM/DOSE PO SCH (08:19)
[2022-08-27] MEDS: MAGNESIUM OXIDE 400 MG TAB PO SCH ×2 (08:20→20:01)
[2022-08-27] MEDS: DOCUSATE NA 100 MG CAP PO SCH ×2 (08:20→20:00)
[2022-08-27] MEDS: MULTIVITAMIN TAB PO SCH (08:20)
[2022-08-27] MEDS: ASPIRIN EC 81 MG TAB PO SCH (08:20)
--- NOTE | 2022-08-27 08:29 | P.RH.PN ---
Estimated Length of Stay: 11 Expected Discharge Date: 09/06/22 Discharge Disposition Plan: Home Family Support: Yes Custodial Goal: Mobility, Transfers, Self Care Vital Signs: Last Vital Signs Temp 99.0 F 08/26/22 20:20 Pulse 71 08/26/22 08:57 Resp 18 08/26/22 20:20 BP 130/60 08/26/22 08:57 Pulse Ox 96 08/26/22 20:20 Laboratory: Laboratory Last Values WBC 7.30 thou/uL (4.3-10.9) 08/25/22 04:01 RBC 3.34 M/uL (4.33-5.43) L 08/25/22 04:01 Hgb 11.0 g/dL (13.6-17.9) L 08/25/22 04:01 Hct 32.9 % (39.6-49.0) L 08/25/22 04:01 MCV 98.6 fL (80-100) 08/25/22 04:01 MCH 33.1 pg (27.0-35.0) 08/25/22 04:01 MCHC 33.5 g/dL (32.0-36.0) 08/25/22 04:01 RDW 12.6 % (12.1-15.2) 08/25/22 04:01 Plt Count 222 thou/uL (152-406) 08/25/22 04:01 MPV 6.6 fL (7.6-11.3) L 08/25/22 04:01 Neutrophils % 49.2 % (41.7-73.7) 08/25/22 04:01 Lymphocytes % 31.5 % (15.3-44.8) 08/25/22 04:01 Monocytes % 11.9 % (3.3-12.3) 08/25/22 04:01 Eosinophils % 7.0 % (0-4.4) H 08/25/22 04:01 Basophils % 0.4 % (0-1.3) 08/25/22 04:01 Absolute Neutrophils 3.6 K/uL (1.8-8.0) 08/25/22 04:01 Absolute Lymphocytes 2.3 K/uL (0.7-4.9) 08/25/22 04:01 Absolute Monocytes 0.9 K/uL (0.1-1.3) 08/25/22 04:01 Absolute Eosinophils 0.5 K/uL (0-0.5) 08/25/22 04:01 Absolute Basophils 0.0 K/uL (0-0.5) 08/25/22 04:01 Sodium 134 mEq/L (136-145) L 08/25/22 04:01 Potassium 3.7 mEq/L (3.5-5.1) 08/25/22 04:01 Chloride 104 mEq/L (98-107) 08/25/22 04:01 Carbon Dioxide 27 mEq/L (21-32) 08/25/22 04:01 Anion Gap 6.7 mEq/L (5.0-15.0) 08/25/22 04:01 BUN 29 mg/dL (7-18) H 08/25/22 04:01 Creatinine 1.55 mg/dL (0.70-1.30) H 08/25/22 04:01 Est GFR (CKD-EPI) 43 ml/min (=/>90) L 08/25/22 04:01 Glucose 101 mg/dL (74-106) 08/25/22 04:01 Calcium 8.6 mg/dL (8.5-10.1) 08/25/22 04:01 Magnesium 2.3 mg/dL (1.6-2.4) 08/25/22 04:01 Albumin 2.7 g/dL (3.4-5.0) L 08/25/22 04:01 Prealbumin 21.2 mg/dL (20-40) 08/25/22 04:01 Urine Color Light-yellow (Yellow) 08/24/22 19:05 Urine Clarity Clear (Clear) 08/24/22 19:05 Urine pH 5.5 (5.0-7.0) 08/24/22 19:05 Ur Specific [place] 1.018 (1.005-1.030) 08/24/22 19:05 Glucose (UA)(Auto) Negative (Negative) 08/24/22 19:05 Urine Ketones Negative (Negative) 08/24/22 19:05 Urine Blood Negative (Negative) 08/24/22 19:05 Urine Nitrite Negative (Negative) 08/24/22 19:05 Urine Bilirubin Negative (Negative) 08/24/22 19:05 Urine Urobilinogen Normal (Normal) 08/24/22 19:05 Ur Leukocyte Esterase Negative Erica/uL (Negative) 08/24/22 19:05 Urine RBC <5 /HPF (None Seen) 08/24/22 19:05 Urine WBC <5 /HPF (<5) 08/24/22 19:05 Ur Squamous Epith Cells <5 /HPF (None Seen) 08/24/22 19:05 Urine Bacteria None seen /HPF (<20) 08/24/22 19:05 Urine Culture Reflexed Not needed 08/24/22 19:05 Urine Total Protein Negative (Negative) 08/24/22 19:05 Weight: 200 lb Wound Present: No Closed Surgical Incision Present: Yes Physician Update: His bleeding from the back and the tip of the penis. His tremors are better. He is making good progress with all therapy and will be ready for discharge. Moderate cognitive deficits. Bed mobility and transfers are SBA. Up and down 15 steps with SBA. Labs were reviewed. Summary: Patient's care plan and retirement goals have been reviewed and revised as necessary. Please see the Rehabilitation Signature page for all necessary signatures.
[2022-08-27] MEDS: PRIMIDONE 50 MG PO SCH (08:38)
[2022-08-27] MEDS: GLUCOSAM/CHONDROI 500mg-400mg PO SCH (08:39)
[2022-08-27] MEDS: PRESERVISION AREDS PO SCH (09:14)
[2022-08-27] MEDS: ATORVASTATIN 20 MG TAB PO SCH (20:00)
[2022-08-27] MEDS: MIRTAZAPINE 15 MG TAB PO SCH (20:01)
[2022-08-28] MEDS: TURMERIC ROOT EXTRACT 500 MG PO SCH (08:00)
[2022-08-28] MEDS: POLYETHYL GLY 3350 17 GM/DOSE PO SCH (08:23)
[2022-08-28] MEDS: LIDOCAINE 4% PATCH TOP SCH (08:23)
[2022-08-28] MEDS: HYDROCORTISONE 1 % CREAM 30GM TOP PRN (08:24)
[2022-08-28] MEDS: MAGNESIUM OXIDE 400 MG TAB PO SCH ×2 (08:24→19:34)
[2022-08-28] MEDS: MULTIVITAMIN TAB PO SCH (08:24)
[2022-08-28] MEDS: ASPIRIN EC 81 MG TAB PO SCH (08:24)
[2022-08-28] MEDS: FOLIC ACID 1 MG TABLET PO SCH (08:24)
[2022-08-28] MEDS: CRANBERRY FRUIT EXTRACT 200 MG CAP PO SCH ×2 (08:24→19:34)
[2022-08-28] MEDS: DOCUSATE NA 100 MG CAP PO SCH ×3 (08:24→19:45)
[2022-08-28] MEDS: FINASTERIDE 5 MG TAB PO SCH (08:24)
[2022-08-28] MEDS: GLUCOSAM/CHONDROI 500mg-400mg PO SCH (10:30)
[2022-08-28] MEDS: PRESERVISION AREDS PO SCH (10:30)
[2022-08-28] MEDS: ATORVASTATIN 20 MG TAB PO SCH (19:34)
[2022-08-28] MEDS: MIRTAZAPINE 15 MG TAB PO SCH (19:34)
[2022-08-29] MEDS: LIDOCAINE 4% PATCH TOP SCH (07:55)
[2022-08-29] MEDS: TURMERIC ROOT EXTRACT 500 MG PO SCH (08:00)
[2022-08-29] MEDS: HYDROCODONE/APAP 5/325 MG TAB PO PRN (08:01)
[2022-08-29] MEDS: FINASTERIDE 5 MG TAB PO SCH (08:02)
[2022-08-29] MEDS: ASPIRIN EC 81 MG TAB PO SCH (08:02)
[2022-08-29] MEDS: CRANBERRY FRUIT EXTRACT 200 MG CAP PO SCH ×2 (08:02→19:36)
[2022-08-29] MEDS: POLYETHYL GLY 3350 17 GM/DOSE PO SCH (08:02)
[2022-08-29] MEDS: MAGNESIUM OXIDE 400 MG TAB PO SCH ×2 (08:03→19:36)
[2022-08-29] MEDS: MULTIVITAMIN TAB PO SCH (08:03)
[2022-08-29] MEDS: DOCUSATE NA 100 MG CAP PO SCH ×2 (08:03→19:36)
[2022-08-29] MEDS: FOLIC ACID 1 MG TABLET PO SCH (08:03)
[2022-08-29] MEDS: PRIMIDONE 50 MG PO SCH (08:04)
[2022-08-29] MEDS: GLUCOSAM/CHONDROI 500mg-400mg PO SCH (08:04)
[2022-08-29] MEDS: PRESERVISION AREDS PO SCH (08:05)
[2022-08-29] MEDS: ATORVASTATIN 20 MG TAB PO SCH (19:36)
[2022-08-29] MEDS: MIRTAZAPINE 15 MG TAB PO SCH (19:36)
[2022-08-30] MEDS: GLUCOSAM/CHONDROI 500mg-400mg PO SCH (07:20)
[2022-08-30] MEDS: POLYETHYL GLY 3350 17 GM/DOSE PO SCH (07:20)
[2022-08-30] MEDS: PRESERVISION AREDS PO SCH (07:20)
[2022-08-30] MEDS: DOCUSATE NA 100 MG CAP PO SCH ×2 (07:20→20:00)
[2022-08-30] MEDS: FINASTERIDE 5 MG TAB PO SCH (07:21)
[2022-08-30] MEDS: FOLIC ACID 1 MG TABLET PO SCH (07:21)
[2022-08-30] MEDS: CRANBERRY FRUIT EXTRACT 200 MG CAP PO SCH ×2 (07:21→20:20)
[2022-08-30] MEDS: MULTIVITAMIN TAB PO SCH (07:21)
[2022-08-30] MEDS: ASPIRIN EC 81 MG TAB PO SCH (07:21)
[2022-08-30] MEDS: MAGNESIUM OXIDE 400 MG TAB PO SCH ×2 (07:21→20:20)
[2022-08-30] MEDS: HYDROCODONE/APAP 5/325 MG TAB PO PRN ×2 (07:39→20:20)
[2022-08-30] MEDS: TURMERIC ROOT EXTRACT 500 MG PO SCH (08:00)
[2022-08-30] MEDS: LIDOCAINE 4% PATCH TOP SCH (09:50)
[2022-08-30] MEDS: ATORVASTATIN 20 MG TAB PO SCH (20:20)
[2022-08-30] MEDS: MIRTAZAPINE 15 MG TAB PO SCH (20:21)
--- NOTE | 2022-08-30 20:41 | PN ---
Date of Progress Note: 08/30/2022 Pzev-Oz-Vydw Progress Note Visit Time Of Service: 1 p.m. Subjective: Mr. Spencer is doing well. He denies any significant pain, any complications, or any problems and he is happy with his therapy. Review of Systems: No fevers, chills, nausea, vomiting, myalgias, arthralgias, rash, headache, or weight change. No oth er complaints. Physical Examination: Vital Signs: Blood pressure 132/60, pulse 62, respiratory rate 16, temperature 97, and oxygen satura tion 95%. Pain level ranges from 2-3. General: Mr. Spencer is resting well. Neurologic: He has very little evidence of his left hemispheric stroke with right-sided weakness, wh ich is now improving very well. Lungs: Clear. Abdomen: Soft. Extremities: No significant edema. Laboratory Studies: No new laboratory studies in the last 2-3 days. X-ray/imaging: No new x-ray or imaging. Medications: His medications have been reviewed and remained unchanged. Current Functional Status: Today he ambulated 500 feet twice and another 300 feet twice with standby assistance using a rolling walker. He ascended and descended 20 steps independently using bilateral handrails. With occupational therapy, he self propelled himself from the room to shower and indepen dently performed that and sit to stand done independently as well. He did shower independently doing upper body dressing and lower body dressing and footwear with standby assistance. With speech thera py, he answered temporal orientation questions using a communication board in the room with minimal a ssistance with 80% accuracy. Working memory skills were used to complete complex tasks with minimum assistance at 90% accuracy. Progress Towards Rehabilitation Goals: Mr. Spencer is making excellent progress towards his goals of becoming independent with upper and lower body dressing, transferring, toileting, showering; ambu lating over 500 feet independently; up and down 15 steps independently; and performing cognitive func tioning independently. Assessment: Mr. Spencer is an 86-year-old patient admitted to the inpatient rehabilitation unit w ith left hemispheric stroke with right-sided weakness, which is resolving very well. He has prostate hypertrophy, chronic anemia, low back pain, chronic kidney disease, dyslipidemia, hyponatremia, and depression. He has lumbar decompression at L4-5 where there is stenosis and he has benign essential tremor. Plan: 1.Continue with physical, occupational, and speech therapy 3.5 hours, 5 of 7 days. 2.He has multiple comorbid conditions as listed above and multiple medications to address those incl uding Eliquis, Dulcolax, Lipitor, Senokot, Plavix, aspirin, and primidone. Comorbids That Continue To Impact Rehabilitation: None of his comorbids negatively impact his abilit y to do very well including his essential tremor, which is controlled with primidone. LB/MODL Voice ID: [id number] Report ID: [id number]
[2022-08-31] MEDS: HYDROCODONE/APAP 5/325 MG TAB PO PRN ×2 (07:29→19:31)
[2022-08-31] MEDS: PRESERVISION AREDS PO SCH (07:31)
[2022-08-31] MEDS: LIDOCAINE 4% PATCH TOP SCH (07:32)
[2022-08-31] MEDS: PRIMIDONE 50 MG PO SCH (07:32)
[2022-08-31] MEDS: POLYETHYL GLY 3350 17 GM/DOSE PO SCH (07:32)
[2022-08-31] MEDS: GLUCOSAM/CHONDROI 500mg-400mg PO SCH (07:32)
[2022-08-31] MEDS: DOCUSATE NA 100 MG CAP PO SCH ×2 (07:33→19:32)
[2022-08-31] MEDS: MAGNESIUM OXIDE 400 MG TAB PO SCH ×2 (07:33→19:31)
[2022-08-31] MEDS: MULTIVITAMIN TAB PO SCH (07:33)
[2022-08-31] MEDS: FOLIC ACID 1 MG TABLET PO SCH (07:33)
[2022-08-31] MEDS: ASPIRIN EC 81 MG TAB PO SCH (07:33)
[2022-08-31] MEDS: CRANBERRY FRUIT EXTRACT 200 MG CAP PO SCH ×2 (07:33→19:31)
[2022-08-31] MEDS: FINASTERIDE 5 MG TAB PO SCH (07:33)
[2022-08-31] MEDS: TURMERIC ROOT EXTRACT 500 MG PO SCH (08:00)
[2022-08-31] MEDS: ATORVASTATIN 20 MG TAB PO SCH (19:32)
[2022-08-31] MEDS: MIRTAZAPINE 15 MG TAB PO SCH (19:33)
--- NOTE | 2022-08-31 23:31 | PN ---
Date of Progress Note: 08/31/2022 Qqps-Wj-[id number] Progress Note Time Of Service: 1:30 p.m. Subjective: Mr. Spencer is doing well. He is in the dining room, eating. He has no new complain ts. He is happy with his therapy and progress so far. Review of Systems: No fevers, chills, nausea, vomiting, myalgias, arthralgias, rash, headache, or weight change. His ri ght-sided weakness from his left-sided stroke is improving very well and hardly any difference in str ength on either side. Physical Examination: Vital Signs: He is doing well, in terms of orthostatics with lying 144/67, pulse 64; sitting blood p ressure 132/62, pulse of 64; standing blood pressure 137/63, pulse of 87. Oxygen saturation 99%, tem perature 97.2, respiratory rate 14 to 18. General: Mr. Spencer is doing well. Neurologic: In terms of his deficits, his right side deficit is hardly noticeable in his upper and l ower extremities, doing very well. No asymmetry is noted with his face. Otherwise, examination unch anged compared to yesterday. Laboratory Studies: No new laboratory studies. X-ray/imaging: No new x-ray or imaging. Medications: Unchanged and have been reviewed. Current Functional Status: Today he did bpzfmg-vx-qzj transfers independently, multiple stand and pi vot transfers independently using a rolling walker, sit to stand transfers also independently. He am bulated 500 feet twice, 600 feet once, and 300 feet twice independently using a rolling walker. He a scended and descended 20 steps independently with bilateral handrails twice. With speech therapy, he worked on recalling items, working memory strategies, orientation skills, and auditory comprehension tasks. He could independently answer questions pertaining to orientation with prediction tasks. He required minimal assistance for auditory comprehension tasks and working memory strategy activities. He could recall 4 of 4 items with moderate assistance. He was educated on using various strategies such as visual spatial, word association, and functional strategies for enhancing his recall and davy rt-term memory. He did toilet transfer independently, wheeled himself to the gym independently, and did dynamic standing balance exercises very well. Progress Towards Rehabilitation Goals: Mr. Spencer is making excellent progress towards his goals of complete independence with upper and lower body dressing, transferring, toileting, ambulating of 600 feet independently, up and down 20 steps independently, and performing cognitive functioning inde pendently. Assessment: Mr. Spencer is in the rehabilitation unit with a right body left brain stroke from ich he is recovering very well. He has prostate hypertrophy, chronic anemia, chronic kidney disease, dyslipidemia, hypernatremia, and depression. Lumbar decompression was done at L4-5 and he has benig n essential tremor. Plan: 1.Continue with physical, occupational, and speech therapy. He will be discharged in the next 2 day s. 2.Continue all medications as listed for his comorbid conditions including primidone, aspirin, Plavi x, Senokot, Lipitor, Dulcolax, and Eliquis. Comorbids That Continue To Impact Rehabilitation Process: At this point, none of his comorbids negat ively impact his rehabilitation. He is thriving and doing very well and is ready for discharge and w ould likely benefit most from outpatient physical therapy to continue improving. LB/MODL Voice ID: [id number] Report ID: [id number]
[2022-09-01] MEDS: HYDROCODONE/APAP 5/325 MG TAB PO PRN (07:35)
[2022-09-01] MEDS: TURMERIC ROOT EXTRACT 500 MG PO SCH (08:00)
[2022-09-01] MEDS: FINASTERIDE 5 MG TAB PO SCH (08:03)
[2022-09-01] MEDS: PRESERVISION AREDS PO SCH (08:03)
[2022-09-01] MEDS: MULTIVITAMIN TAB PO SCH (08:03)
[2022-09-01] MEDS: POLYETHYL GLY 3350 17 GM/DOSE PO SCH (08:03)
[2022-09-01] MEDS: CRANBERRY FRUIT EXTRACT 200 MG CAP PO SCH ×2 (08:03→20:01)
[2022-09-01] MEDS: GLUCOSAM/CHONDROI 500mg-400mg PO SCH (08:03)
[2022-09-01] MEDS: DOCUSATE NA 100 MG CAP PO SCH ×2 (08:04→20:01)
[2022-09-01] MEDS: FOLIC ACID 1 MG TABLET PO SCH (08:04)
[2022-09-01] MEDS: MAGNESIUM OXIDE 400 MG TAB PO SCH ×2 (08:04→20:01)
[2022-09-01] MEDS: ASPIRIN EC 81 MG TAB PO SCH (08:04)
[2022-09-01] MEDS: LIDOCAINE 4% PATCH TOP SCH (09:41)
[2022-09-01] MEDS: ATORVASTATIN 20 MG TAB PO SCH (20:01)
[2022-09-01] MEDS: MIRTAZAPINE 15 MG TAB PO SCH (20:01)
[2022-09-02 04:20] LABS: Absolute Lymphocytes (CBC) 1.9 K/uL (0.7-4.9); Hematocrit 33.4 % (39.6-49.0); Lymphocytes % 30.8 % (15.3-44.8); MCV 99.6 fL (80-100); RBC Red Blood Cell Count 3.36 M/uL (4.33-5.43)
[2022-09-02 04:33] LABS: Albumin 2.9 g/dL (3.4-5.0); Magnesium 2.5 mg/dL (1.6-2.4); Potassium 3.9 mEq/L (3.5-5.1); Prealbumin 19.9 mg/dL (20-40)
[2022-09-02] MEDS: GLUCOSAM/CHONDROI 500mg-400mg PO SCH (08:00)
[2022-09-02] MEDS: TURMERIC ROOT EXTRACT 500 MG PO SCH (08:00)
[2022-09-02] MEDS: PRESERVISION AREDS PO SCH (08:00)
[2022-09-02] MEDS: POLYETHYL GLY 3350 17 GM/DOSE PO SCH (08:00)
[2022-09-02] MEDS: LIDOCAINE 4% PATCH TOP SCH (09:24)
[2022-09-02] MEDS: ASPIRIN EC 81 MG TAB PO SCH (09:25)
[2022-09-02] MEDS: MULTIVITAMIN TAB PO SCH (09:25)
[2022-09-02] MEDS: HYDROCORTISONE 1 % CREAM 30GM TOP PRN (09:26)
[2022-09-02] MEDS: DOCUSATE NA 100 MG CAP PO SCH (09:26)
[2022-09-02] MEDS: MAGNESIUM OXIDE 400 MG TAB PO SCH (09:26)
[2022-09-02] MEDS: FINASTERIDE 5 MG TAB PO SCH (09:26)
[2022-09-02] MEDS: CRANBERRY FRUIT EXTRACT 200 MG CAP PO SCH (09:26)
[2022-09-02] MEDS: FOLIC ACID 1 MG TABLET PO SCH (09:26)
[2022-09-02] MEDS: PRIMIDONE 50 MG PO SCH (09:30)
[2022-09-02 09:49] VITALS: BP 132/65; TEMP 97.3
--- NOTE | 2022-09-06 13:00 | PN ---
Date of Progress Note: 09/01/2022 [id number] Progress Note. Time Of Service: 1 p.m. Subjective: Mr. Spencer is doing well. He has no new complaints. He is happy with his therapy and progress so far. Review of Systems: No fevers, chills, nausea, vomiting, myalgias, arthralgias, rash, headache, or weight change. His right-sided weakness from his left-sided stroke is improving very well and hardly any difference in strength on either side. Physical Examination: Vital Signs: He is doing well, 134/73, pulse 68; Oxygen saturation 99%, temperature 97.2, respiratory rate 14 to 18. In terms of his deficits, his right side deficit is hardly noticeable in his upper and lower extremities, doing very well. No asymmetry is noted with his face. Otherwise, examination unchanged compared to yesterday. Laboratory Studies: No new laboratory studies. X-ray/imaging: No new x-ray or imaging. Medications: Unchanged and have been reviewed. Current Functional Status: Today he did vignxn-df-slg transfers independently, multiple stand and pivot transfers independently using a rolling walker, sit to stand transfers also independently. He ambulated 500 feet twice, 600 feet once, and 300 feet twice independently using a rolling walker. He ascended and descended 20 steps independently with bilateral handrails twice. With speech therapy, he worked on recalling items, working memory strategies, orientation skills, and auditory comprehension tasks. He could independently answer questions pertaining to orientation with prediction tasks. He required minimal assistance for auditory comprehension tasks and working memory strategy activities. He could recall 4 of 4 items with moderate assistance. He was educated on using various strategies such as visual spatial, word association, and functional strategies for enhancing his recall and short-term memory. He did toilet transfer independently, wheeled himself to the gym independently, and did dynamic standing balance exercises very well. Progress Towards Rehabilitation Goals: Mr. Spencer made excellent progress towards his goals of complete independence with upper and lower body dressing, transferring, toileting, ambulating of 600 feet independently, up and down 20 steps independently, and performing cognitive functioning independently. Assessment: Mr. Spencer is in the rehabilitation unit with a right body left brain stroke from which he is recovering very well. He has prostate hypertrophy, chronic anemia, chronic kidney disease, dyslipidemia, hypernatremia, and depression. Lumbar decompression was done at L4-5 and he has benign essential tremor. Plan: 1. Continue with physical, occupational, and speech therapy. He will be discharged in the next 2 days. 2. Continue all medications as listed for his comorbid conditions including primidone, aspirin, Plavix, Senokot, Lipitor, Dulcolax, and Eliquis. Comorbids That Continue To Impact Rehabilitation Process: At this point, none of his comorbids negatively impact his rehabilitation. He is thriving and doing very well and is ready for discharge and would likely benefit most from outpatient physical therapy to continue improving. ANI/MODAsael Voice ID: [id number] Report ID: [id number] CHAKA
== END 2022-09-02 10:50 | disposition home health service (06) | DRG 57 ==
LOC: 5TH 08-24 10:45
PROVIDERS: ADMIT Psychiatry & Neurology Neurology with Special Qualifications in Child Neurology; ATTEND Psychiatry & Neurology Neurology with Special Qualifications in Child Neurology
DX: I69.351 Hemiplegia and hemiparesis following cerebral infarction affecting right dominant side (principal); E87.1 Hypo-osmolality and hyponatremia; K59.09 Other constipation; D64.9 Anemia, unspecified; M54.50 Low back pain, unspecified; N18.9 Chronic kidney disease, unspecified; E78.5 Hyperlipidemia, unspecified; F32.A Depression, unspecified; G47.00 Insomnia, unspecified; G25.0 Essential tremor; N40.0 Benign prostatic hyperplasia without lower urinary tract symptoms
CPT/HCPCS: 36415; 80048; 81001; 82040; 83735; 84134; 85025; 87086; 87088; 92523; 94010; 97110; 97112; 97116; 97129; 97161; 97165; 97530; J2001

== ENCOUNTER 2022-09-23 07:33 | Inpatient (IN) | payer OTHER ==
--- OUTSIDE RECORDS SUMMARY | 2022-09-23 07:37 | XMS REPORT | Continuity of Care Document ---
:1935 Author Organization [facility] Address [address] [facility] [address] [place] [id number] Care Team Providers Name Role Phone Jarred Woods Attending Clinician Unavailable Karen Webster Attending Clinician Unavailable Payers Payer Name Policy Type Policy Number Effective Date Expiration Date S trino AETNA MEDICARE C1 [id number] Common S [facility] MEDICARE C1 [id number] [id number] Common S [facility] Problems Condition Condition Condition Status Onset Resolution Last Treating Co mments Source Name Details Category Date Date Treatment Clinician Date [id number] Compressio Problem C ommon [id number] n fracture Spiri t of L2 - [facility] vertebra with 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 [facility] Orthostati Orthostati Problem C ommon c c Spirit hypotensio hypotensio - [facility]I n n [facility] Hearing Hearing Problem Common loss loss [facility] Anemia Anemia Problem Common [facility] Hyperlipid Hyperlipid Problem C omhussein emia emia [facility] 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 loss type Medical Center Cataract Cataract Problem Commo n [facility] Lower Benign Problem Common urinary prostatic [facility] tract hypertroph - [facility]I symptoms y with St due to [facility] urinary Medical prostatic tract Center hypertroph symptoms y (LUTS) [id number] Abnormal Problem Comm on renal Spirit function - [facility] test [facility] [id number] Benign Problem Common prostatic Spirit hyperplasi - [facility] a, St unspecifie [facility] d whether [facility] urinary tract symptoms present Allergies, Adverse Reactions, Alerts Allergy Allergy Status Severity Reaction(s) Onset Inactive Treating Comm ents Source Name Type Date Date Clinician ezetimib ezetimib Active Unknown Commo n e e [facility] Social History Social Habit Start Date Stop Date Quantity Comments Source History of Tobacco Use Co mmon [facility] Sex Assigned At Com [facility] Smoking Status Start Date Stop Date Source Never Smoker [facility] Former Smoker 2021-06-26 00:00:00 2021-06-26 00:00:00 Common S pirit [facility] Medications Ordered Filled Start Stop Current Ordering [...] 600+D 600+D Millender with a Spirit meal [facility] Multi For Multi For Yes not Comm on Him 50+ Him 50+ Millender defined S [facility] Aspir-81 Aspir-81 Yes 1 tablet Co mmon [facility] Lipitor Lipitor Yes 1 tablet Comm on Millender [facility] Finasteride Finasteride Yes 1 tablet Common [facility] Chondroitin Chondroitin Yes not Common Sulfate Sulfate Millender defined S [facility] Inderal [place] Inderal [place] Yes 1 capsule Common [facility] Gabapentin Gabapentin Yes 1 capsule Common [facility] Clonazepam Clonazepam Yes 1 tablet Common Millender at bedtime Spir it [facility] Aspir-81 81 Aspir-81 81 No 1{table QD [...] % e 2 % le 2 % MiraLax MiraLax No MiraLax Propranolol Propranolol No 1{table BID Propranolo HCl 10 MG HCl 10 MG t} l HCl 10 MG Mirtazapine Mirtazapine No 1{table QD Mirtazapin 15 MG 15 MG t_at_be e 15 MG dtime} Aspirin Aspirin No Aspirin Finasteride Finasteride No 1{table QD Finasterid 5 MG 5 MG t} e 5 MG traMADol traMADol No BID traMADol HCl 50 MG HCl 50 MG HCl 50 MG Tylenol Tylenol No Tylenol Multi For Multi For No Multi For Him 50+ - Him 50+ - Him 50+ - Tumersaid Tumersaid No Tumersaid Lidocaine Lidocaine No Lidocaine HCl 4 % HCl 4 % HCl 4 % Glucosamine Glucosamine No Glucosamin e Calcium Calcium No Calcium PreserVisio PreserVisio No PreserVisi n AREDS n AREDS on AREDS Gabapentin Gabapentin No 1{capsu QD Gabapentin 300 MG 300 MG le} 300 MG Propranolol Propranolol No 1{table BID Propranolo HCl 10 MG HCl 10 MG t} l HCl 10 MG Ketoconazol Ketoconazol No Ketoconazo e 2 % e 2 % le 2 % Mirtazapine Mirtazapine No 1{table QD Mirtazapin 7.5 [...] 600-800 600-800 a_meal} 600-800 MG-UNIT MG-UNIT MG-UNIT Aspir- 81 Aspir- 81 No 1{table QD Aspir-81 MG MG [...] 600-800 600-800 a_meal} 600-800 MG-UNIT MG-UNIT MG-UNIT Aspir- 81 Aspir- 81 No 1{table QD Aspir-81 MG MG [...] FluAD 2021-01-22 Completed [facility] 13:08:00 - [facility] FluAD FluAD 2021-01-22 Completed [facility] 13:08:00 - [facility] FluAD FluAD 2021-01-22 Completed [facility] 13:08:00 - [facility] FluAD FluAD 2021-01-22 Completed [facility] 13:08:00 - [facility] FluAD FluAD 2021-01-22 Completed [facility] 13:08:00 - [facility] FluAD FluAD 2021-01-22 Completed [facility] 13:08:00 - [facility] FluAD FluAD 2021-01-22 Completed [facility] 13:08:00 - [facility] FluAD FluAD 2021-01-22 Completed [facility] 13:08:00 - [facility] FluAD FluAD 2021-01-22 Completed [facility] 13:08:00 - [facility] FLUZONE HIGH DOSE FLUZONE HIGH DOSE 2020-01-08 Completed [facility] OVER 65 OVER 65 16:10:00 - [facility] FLUZONE HIGH DOSE FLUZONE HIGH DOSE 2020-01-08 Completed [facility] OVER 65 OVER 65 16:10:00 - [facility] FLUZONE HIGH DOSE FLUZONE HIGH DOSE 2020-01-08 Completed [facility] OVER 65 OVER 65 16:10:00 - [facility] FLUZONE HIGH DOSE FLUZONE HIGH DOSE 2020-01-08 Completed [facility] OVER 65 OVER 65 16:10:00 - [facility] FLUZONE HIGH DOSE FLUZONE HIGH DOSE 2020-01-08 Completed [facility] OVER 65 OVER 65 16:10:00 - [facility] FLUZONE HIGH DOSE FLUZONE HIGH DOSE 2020-01-08 Completed [facility] OVER 65 OVER 65 16:10:00 - [facility] FLUZONE HIGH DOSE FLUZONE HIGH DOSE 2020-01-08 Completed [facility] OVER 65 OVER 65 16:10:00 - [facility] FLUZONE HIGH DOSE FLUZONE HIGH DOSE 2020-01-08 Completed [facility] OVER 65 OVER 65 16:10:00 - [facility] FLUZONE HIGH DOSE FLUZONE HIGH DOSE 2020-01-08 Completed [facility] OVER 65 OVER 65 16:10:00 - [facility] FLUZONE HIGH DOSE FLUZONE HIGH DOSE 2020-01-08 Completed [facility] OVER 65 OVER 65 16:10:00 - [facility] FLUZONE HIGH DOSE FLUZONE HIGH DOSE 2020-01-08 Completed [facility] OVER 65 OVER 65 16:10:00 - [facility] FLUZONE HIGH DOSE FLUZONE HIGH DOSE 2020-01-08 Completed [facility] OVER 65 OVER 65 16:10:00 - [facility] Vital Signs Vital Name Observation Time Observation Value Comments Source height 2022-01-26 15:50:00 71.5 [in_i] [facility] weight 2022-01-26 15:50:00 195.2 [lb_av] Common [facility] temperature 2022-01-26 15:50:00 97.0 [degF] [facility] bmi 2022-01-26 15:50:00 26.84 kg/m2 [facility] oximetry 2022-01-26 15:50:00 96 % [facility] respiratory rate 2022-01-26 15:50:00 17 /min Comm on Spirit - [facility] blood pressure 2022-01-26 15:50:00 125 mm[Hg] [facility] - systolic [facility] blood pressure 2022-01-26 15:50:00 68 mm[Hg] [facility] - diastolic [facility] height 2021-12-01 07:40:00 71.5 [in_i] Common S pirit - [facility] weight 2021-12-01 07:40:00 194 [lb_av] Common S pirit - [facility] temperature 2021-12-01 07:40:00 98 [degF] Common S pirit - [facility] bmi 2021-12-01 07:40:00 26.68 kg/m2 Common S pirit - [facility] blood pressure 2021-12-01 07:40:00 122 mm[Hg] Common [facility] - systolic [facility] blood pressure 2021-12-01 07:40:00 60 mm[Hg] Common [facility] - diastolic [facility] height 2021-11-03 09:20:00 71.5 [in_i] Common S pirit [facility] weight 2021-11-03 09:20:00 194.7 [lb_av] Common [facility] temperature 2021-11-03 09:20:00 97.7 [degF] Common S pirit [facility] bmi 2021-11-03 09:20:00 26.77 kg/m2 [facility] S pirit [facility] oximetry 2021-11-03 09:20:00 91 % Common S pirit [facility] respiratory rate 2021-11-03 09:20:00 16 /min Comm on [facility] blood pressure 2021-11-03 09:20:00 124 mm[Hg] Common [facility] - systolic [facility] blood pressure 2021-11-03 09:20:00 59 mm[Hg] Common [facility] - diastolic [facility] height 2021-06-30 13:10:00 71.5 [in_i] Common S pirit - [facility] weight 2021-06-30 13:10:00 189.9 [lb_av] Common [facility] temperature 2021-06-30 13:10:00 97.2 [degF] Common [facility] bmi 2021-06-30 13:10:00 26.11 kg/m2 Common [facility] oximetry 2021-06-30 13:10:00 98 % Common [facility] respiratory rate 2021-06-30 13:10:00 17 /min Comm on [facility] blood pressure 2021-06-30 13:10:00 126 mm[Hg] Common [facility] systolic [facility] blood pressure 2021-06-30 13:10:00 61 mm[Hg] [facility] diastolic [facility] height 2021-03-31 13:00:00 71.5 [in_i] [facility] weight 2021-03-31 13:00:00 183.9 [lb_av] [facility] temperature 2021-03-31 13:00:00 97.3 [degF] Common [facility] bmi 2021-03-31 13:00:00 25.29 kg/m2 [facility] oximetry 2021-03-31 13:00:00 97 % [facility] respiratory rate 2021-03-31 13:00:00 17 /min Comm on [facility] blood pressure 2021-03-31 13:00:00 120 mm[Hg] Common [facility] systolic [facility] blood pressure 2021-03-31 13:00:00 61 mm[Hg] Common [facility] diastolic [facility] Procedures This patient has no known procedures. Encounters Start End Encounter Admission Attending Care Care Encounter Source Date/Time Date/Time Type Type Clinicians Facility Department ID 2022-09-07 Outpatient WoodsKYLEE farah [facility] [id number] Common 13:59:00 [facility] [address] [facility] 2022-08-09 Outpatient Woods, STLMLC STLMLC [id number] Common 08:27:00 Jarred [address] [facility] 2022-01-25 Outpatient Woods, STLMLC STLMLC [id number] Common 14:59:00 Jarred [facility] 2021-12-15 Outpatient Woods, STLMLC STLMLC [id number] Common 14:06:00 Jarred [facility] 2021-06-30 Outpatient Woods, STLMLC STLMLC [id number] Common 13:05:00 Jarred [facility] 2021-06-29 Outpatient Woods, STLMLC STLMLC [id number] Common 09:17:00 Jarred [facility] 2021-05-20 Outpatient Woods, STLMLC STLMLC [id number] Common 14:00:18 Jarred 50358 [facility] 2021-05-20 Outpatient Woods, STLMLC STLMLC [id number] Common 13:58:47 Jarred 35226 [facility] 2021-05-20 Outpatient Woods, STLMLC STLMLC [id number] Common 13:35:19 Jarred 78146 [facility] 2021-05-20 Outpatient Woods, STLMLC STLMLC [id number] Common 13:11:28 Jarred 11497 [facility] 2021-05-20 Outpatient Woods, STLMLC STLMLC [id number] Common 12:31:25 Jarred 42803 [facility] 2021-05-20 Outpatient Woods, STLMLC STLMLC [id number] Common 12:31:02 Jarred 22605 [facility] 2021-05-20 Outpatient Woods, STLMLC STLMLC [id number] Common 12:21:18 Jarred 16881 [facility] 2021-05-20 Outpatient Millender, STLMLC STLMLC [id number] Common 11:08:37 92717 [facility] 2021-05-20 Outpatient Millender, STLMLC STLMLC [id number] Common 11:05:50 [id number] [facility] 2021-05-20 Outpatient Millender, STLMLC STLMLC [id number] 11:03:28 [id number] [facility] 2021-05-20 Outpatient Millender, STLMLC STLMLC [id number] 11:02:51 92106 [facility] 2022-05-26 2022-05-26 (TEL) STLMLC STLMLC [id number] Co mmon 00:00:00 00:00:00 [facility] 2022-01-26 2022-01-26 OFFICE STLMLC STLMLC [id number] Co mmon 00:00:00 00:00:00 VISIT Spirit ESTAB PT - [facility] LEVEL 4 [facility] 2021-12-01 2021-12-01 OFFICE STLMLC STLMLC [id number] Co mmon 00:00:00 00:00:00 VISIT Spirit ESTAB PT - [facility] LEVEL 4 [facility] 2021-11-03 2021-11-03 OFFICE STLMLC STLMLC [id number] Co mmon 00:00:00 00:00:00 VISIT Spirit ESTAB PT - [facility] LEVEL 4 [facility] 2021-11-03 2021-11-03 SUB ANNUAL STLMLC STLMLC [id number] Common 00:00:00 00:00:00 MCR Spirit WELLNESS - [facility]I VISIT [facility] 2021-09-02 2021-09-02 (TEL) STLMLC STLMLC [id number] Co mmon 00:00:00 00:00:00 [facility] 2021-06-30 2021-06-30 OFFICE STLMLC STLMLC [id number] Co mmon 00:00:00 00:00:00 VISIT Spirit ESTAB PT - [facility] LEVEL 4 [facility] 2021-03-31 2021-03-31 OFFICE STLMLC STLMLC [id number] Co mmon 00:00:00 00:00:00 VISIT Spirit ESTAB PT - [facility] LEVEL 4 [facility] 2021-02-04 2021-02-04 (TEL) STLMLC STLMLC [id number] Co mmon 00:00:00 00:00:00 [facility] 2021-01-30 2021-01-30 (TEL) STLMLC STLMLC [id number] Co mmon 00:00:00 00:00:00 [facility] 2020-12-01 2020-12-01 (TEL) STLMLC STLMLC [id number] Co mmon 00:00:00 00:00:00 [facility] 2020-11-28 2020-11-28 (TEL) STLMLC STLMLC [id number] Co mmon 00:00:00 00:00:00 [facility] 2020-09-30 2020-09-30 Outpatient STLMLC STLMLC [id number] Common 00:00:00 00:00:00 [facility] 2020-09-30 2020-09-30 Outpatient STLMLC STLMLC [id number] Common 00:00:00 00:00:00 [facility] 2020-08-22 2020-08-22 Outpatient STLMLC STLMLC [id number] Common 00:00:00 00:00:00 [facility] 2020-06-14 2020-06-14 Outpatient STLMLC STLMLC [id number] Common 00:00:00 00:00:00 [facility] 2020-01-08 2020-01-08 Outpatient STLMLC STLMLC [id number] Common 00:00:00 00:00:00 [facility] 2019-09-25 2019-09-25 [facility] [id number] Common 10:40:00 10:40:00 [facility] [address] [facility] 2019-06-13 2019-06-13 [facility] [id number] Common 09:57:00 09:57:00 [facility] [address] [facility] 2019-06-12 2019-06-12 [facility] [id number] Common 15:45:00 15:45:00 [facility] [address] [facility] 2018-11-21 2018-11-21 [facility] [id number] Common 08:45:00 08:45:00 [facility] [address] [facility] 2018-08-22 2018-08-22 [facility] [id number] Common 10:00:00 10:00:00 [facility] [address] [facility] 2017-08-23 2017-08-23 Outpatient Mahamed Irbyt [id number] Common 15:00:00 15:00:00 [facility] [address] [facility] Results This patient has no known results.
[2022-09-23] MEDS ORDERED: NA CHLORIDE 0.9% 500 ML ONE (08:16)
[2022-09-23 08:27] LABS: Absolute Lymphocytes (CBC) 0.9 K/uL (0.7-4.9); Hematocrit 38.9 % (39.6-49.0); Lymphocytes % 7.7 % (15.3-44.8); MCV 99.7 fL (80-100); MPV 6.4 fL (7.6-11.3)
[2022-09-23 08:31] LABS: Protime INR 0.99
--- NOTE | 2022-09-23 08:33 | RAD REPORT ---
EXAM DESCRIPTION: CT - Head Brain Wo Cont - 09/23/2022 8:23 am CLINICAL HISTORY: fall, weakness, recent CVA COMPARISON: Ct Stroke Brain Wo Cont dated 08/03/2021; HEAD BRAIN W O CONTRAST dated 04/21/2013; Brain Wo Cont dated 08/19/2022 TECHNIQUE: All CT scans are performed using dose optimization technique as appropriate and may inclu de automated exposure control or mA/KV adjustment according to patient size. FINDINGS: No intracranial hemorrhage, hydrocephalus or extra-axial fluid collection.No areas of brai n edema or evidence of midline shift. Chronic small vessel ischemic changes. Recent left left-sided c entrum semiovale infarct appears similar. The paranasal sinuses and mastoids are clear. The calvarium is intact. IMPRESSION: No acute intracranial abnormality. Subacute left centrum semiovale infarct is similar.
[2022-09-23 08:37] LABS: Albumin 3.6 g/dL (3.4-5.0); Bilirubin Direct 0.2 mg/dL (0-0.2); Bilirubin Indirect, Calculated 0.5 mg/dL (0.2-0.8); Bilirubin Total 0.7 mg/dL (0.2-1.0); Magnesium 2.2 mg/dL (1.6-2.4); Potassium 4.2 mEq/L (3.5-5.1); Protein, Total 7.9 g/dL (6.4-8.2); Troponin High Sensitivity 14.6 pg/mL (<58.9)
--- NOTE | 2022-09-23 08:41 | RAD REPORT ---
EXAM DESCRIPTION: RAD - Chest Single View - 09/23/2022 8:31 am CLINICAL HISTORY: weakness, fall COMPARISON: Chest Single View dated 08/22/2022; Chest Single View dated 08/18/2022; Chest Single View dated 08/03/2021; CHEST SINGLE VIEW dated 04/21/2013 FINDINGS: Lines: None. Lungs: No evidence of edema or pneumonia. Pleural: No significant pleural effusions or pneumothorax. Cardiac: The heart size is within normal limits. Mediastinum: Within normal limits. Bones: No acute fractures. Other: None IMPRESSION: No acute cardiopulmonary disease.
--- NOTE | 2022-09-23 08:41 | RAD REPORT ---
EXAM DESCRIPTION: CT - Spine Lumbar Wo Con - 09/23/2022 8:23 am CLINICAL HISTORY: weakness, recent back surgery and CVA COMPARISON: Spine Lumbar Wo Con dated 11/20/2020; Lumbar Spine Wo Con dated 08/19/2022; Fluoroscopy <1 Hour dated 08/16/2022 TECHNIQUE: Axial noncontrast CT imaging of the lumbar spine was performed with coronal and sagittal re-formatted images. All CT scans are performed using dose optimization technique as appropriate and may include automated exposure control or mA/KV adjustment according to patient size. FINDINGS: Remote L2 compression fracture with up to 80% loss of height. No acute fractures identifie d. Limited by osteopenia. Postsurgical changes from decompression at L4. No unexpected postsurgical f indings. Disc height loss at L5-S1. Multilevel facet degenerative changes noted. No high-grade centra l spinal stenosis appreciated. IMPRESSION: No lumbar spine fracture identified. Remote L2 compression fracture. Postsurgical change s from recent L4 decompression without apparent complication.
--- NOTE | 2022-09-23 09:58 | ER ---
Nurse's Notes [facility] Name: Adam Spencer Age: 86 yrs Sex: Male : 1935 Arrival Date: 09/23/2022 Time: 07:33 Bed 5 Private MD: Diagnosis: Fall on same level, unspecified;Muscle weakness (generalized);Dehydration Presentation: 09/23 08:05 Chief complaint: EMS states: FAMILY STATES PT WEAKER THAN NORMAL WITH DIFFICULTY bp SPEAKING ON WAKING. S/S IMPROVED EN ROUTE. 08:05 Coronavirus screen: At this time, the client does not indicate any symptoms associated bp with coronavirus-19. Ebola Screen: No symptoms or risks identified at this time. Initial Sepsis Screen: Does the patient meet any 2 criteria? No. Patient's initial sepsis screen is negative. Does the patient have a suspected source of infection? No. Patient's initial sepsis screen is negative. Risk Assessment: Do you want to hurt yourself or someone else? Patient reports no desire to harm self or others. Onset of symptoms was September 23, 2022. 08:05 Method Of Arrival: EMS: [facility] bp 08:05 Acuity: AISHA 3 bp Triage Assessment: 08:05 General: Appears in no apparent distress. Behavior is calm, cooperative. Pain: Denies bp pain. EENT: No deficits noted. Neuro: Level of Consciousness is awake, alert, obeys commands, Oriented to Appropriate for age. Cardiovascular: No deficits noted. Respiratory: No deficits noted. GI: No signs and/or symptoms were reported involving the gastrointestinal system. : No signs and/or symptoms were reported regarding the genitourinary system. Derm: No deficits noted. Musculoskeletal: No deficits noted. Historical: - Allergies: 08:05 Amitriptyline; bp 08:05 ezetimibe; bp 08:05 Lovastatin; bp 08:05 Simvastatin; bp - PMHx: 08:05 benign prostate; Cerebrovascular accident; bp - Immunization history:: Adult Immunizations up to date. - Social history:: Smoking status: Patient denies any tobacco usage or history of. - Family history:: not pertinent. - Hospitalizations: : No recent hospitalization is reported. Screenin:05 [facility] ED Fall Risk Assessment (Adult) History of falling in the last 3 months, bp including since admission No falls in past 3 months (0 pts). Abuse screen: Denies threats or abuse. Denies injuries from another. Nutritional screening: No deficits noted. Tuberculosis screening: No symptoms or risk factors identified. Assessment: 08:05 General: SEE TRIAGE NOTE. bp 09:32 Reassessment: No changes from previously documented assessment. Patient is alert, bp oriented x 3, equal unlabored respirations, skin warm/dry/pink. Vital Signs: 08:30 BP 135 / 69; Pulse 85; Resp 15; Pulse Ox 97% ; bp 09:30 BP 131 / 66; Pulse 76; Resp 16; Pulse Ox 96% ; bp ED Course: 07:40 Patient arrived in ED. kj1 07:46 Pravin Waggoner MD is Attending Physician. snw 07:48 Casimiro Sam, RN is Primary Nurse. bp 08:05 Inserted saline lock: 20 gauge in right forearm, using aseptic technique. Blood bp collected. 08:05 Arm band placed on. bp 08:05 Patient has correct armband on for positive identification. Bed in low position. Call bp light in reach. Side rails up X2. Adult w/ patient. 08:22 Triage completed. bp 08:25 CT Head Brain wo Cont In Process Unspecified. EDMS 08:25 CT Lumbar Spine Wo Con In Process Unspecified. EDMS 08:31 Chest Single View XRAY In Process Unspecified. EDMS 09:57 Arturo Culver MD is Hospitalizing Provider. rn 10:11 XRAY Knee RIGHT 3 view In Process Unspecified. EDMS 10:11 XRAY Hip RIGHT 2 view In Process Unspecified. EDMS Administered Medications: 08:19 Drug: NS 0.9% IV 500 ml Route: IV; Rate: bolus; Site: right forearm; bp Medication: 08:05 VIS not applicable for this client. bp Outcome: 09:58 Decision to Hospitalize by Provider. rn 15:42 Patient left the ED. bp Signatures: Dispatcher [employer] EDMS Marilia Lang, PRECINCT I POLICE SERGEANT-C PRECINCT I POLICE SERGEANT-Csnw Pravin Waggoner MD MD rn Peltier, Brian, VERENA RN Ronda Robin kj1
--- NOTE | 2022-09-23 09:58 | EDPHYS ---
Physician Documentation [facility] Name: Adam Spencer Age: 86 yrs Sex: Male : 1935 Arrival Date: 09/23/2022 Time: 07:33 Bed 5 Private MD: ED Physician Pravin Waggoner HPI: 09/23 08:54 This 86 yrs old Male presents to ER via EMS with complaints of fall, weakness. rn 08:54 Details of fall: The patient fell from an upright position. Onset: The symptoms/episode rn began/occurred this morning. Associated injuries: The patient sustained right knee. Severity of symptoms: At their worst the symptoms were mild, in the emergency department the symptoms are unchanged. The patient has not experienced similar symptoms in the past. The patient has been recently seen by a physician:. Family reports lumbar surgery 1 month ago and stroke during that hospitalization, with right leg weakness from stroke. Family reports was getting better with physical therapy. Tried to get out of bed this AM, legs gave out, fell onto ground with right leg folded underneath. Other than knee pain, denies other injury. No head injury. No vomiting/diarrhea. Eating ok. Not drinking. . Historical: - Allergies: 08:05 Amitriptyline; bp 08:05 ezetimibe; bp 08:05 Lovastatin; bp 08:05 Simvastatin; bp - PMHx: 08:05 benign prostate; Cerebrovascular accident; bp - Immunization history:: Adult Immunizations up to date. - Social history:: Smoking status: Patient denies any tobacco usage or history of. - Family history:: not pertinent. - Hospitalizations: : No recent hospitalization is reported. ROS: 08:54 Constitutional: Negative for fever, chills, and weight loss, Eyes: Negative for injury, rn pain, redness, and discharge, Neck: Negative for injury, pain, and swelling, Cardiovascular: Negative for chest pain, palpitations, and edema, Respiratory: Negative for shortness of breath, cough, wheezing, and pleuritic chest pain, Abdomen/GI: Negative for abdominal pain, nausea, vomiting, diarrhea, and constipation, Back: Negative for injury and pain, MS/Extremity: Negative for injury and deformity, Skin: Negative for injury, rash, and discoloration, Neuro: Negative for headache, numbness, tingling, and seizure. Exam: 08:54 Constitutional: This is a well developed, well nourished patient who is awake, slow to rn respond Head/Face: Normocephalic, atraumatic. Eyes: Periorbital areas with no swelling, redness, or edema. ENT: dry MM Neck: No midline cervical tenderness Chest/axilla: Normal chest wall appearance and motion. Nontender with no deformity. No lesions are appreciated. Cardiovascular: Regular rate and rhythm. No pulse deficits. Respiratory: No increased work of breathing, no retractions or nasal flaring. Abdomen/GI: soft, non-tender Skin: Warm, dry with normal turgor. Normal color with no rashes, no lesions, and no evidence of cellulitis. MS/ Extremity: Pulses equal, no cyanosis. Neurovascular intact. Full, normal range of motion. Equal circumference. Able to fully flex hips and knees bilaterally without pain. Neuro: Awake, GCS 15, oriented to person, place, time, and situation. Cranial nerves II-XII grossly intact. Motor strength 4/5 in all extremities. Sensory grossly intact. Vital Signs: 08:30 BP 135 / 69; Pulse 85; Resp 15; Pulse Ox 97% ; bp 09:30 BP 131 / 66; Pulse 76; Resp 16; Pulse Ox 96% ; bp MDM: 07:46 Patient medically screened. snw 09:56 Differential diagnosis: contusion, fracture, reactivation CVA, weakness, rn deconditioning, dehydration, UTI, pneumonia, PE. Data reviewed: vital signs, nurses notes, lab test result(s), EKG, radiologic studies, CT scan, and as a result, I will admit patient. Consideration of Admission/Observation Patient was admitted/placed on observation. Escalation of care including admission/observation considered. Counseling: I had a detailed discussion with the patient and/or guardian regarding: the historical points, exam findings, and any diagnostic results supporting the discharge/admit diagnosis, lab results, radiology results, the need for further work-up and treatment in the hospital. Response to treatment: There is no appreciated change of the patient's symptoms at this time, and as a result, I will admit patient. 09/23 07:53 Order name: Basic Metabolic Panel; Complete Time: 08:44 rn 09/23 07:53 Order name: CBC with Diff; Complete Time: 08:44 rn 09/23 07:53 Order name: Hepatic Function; Complete Time: 08:44 rn 09/23 07:53 Order name: Magnesium; Complete Time: 08:44 rn 09/23 07:53 Order name: Protime (+inr); Complete Time: 08:44 rn 09/23 07:53 Order name: Ptt, Activated; Complete Time: 08:44 rn 09/23 07:53 Order name: Troponin High Sensitivity; Complete Time: 08:44 rn 09/23 07:53 Order name: Urinalysis w/ reflexes; Complete Time: 12:30 rn 09/23 10:57 Order name: Creatine Phosphokinase EDMS 09/23 10:57 Order name: Basic Metabolic Panel EDMS 09/23 10:57 Order name: Basic Metabolic Panel EDMS 09/23 10:57 Order name: CBC with Automated Diff EDMS 09/23 10:57 Order name: CBC with Automated Diff EDMS 09/23 10:57 Order name: Magnesium EDMS 09/23 10:57 Order name: Magnesium EDMS 09/23 10:57 Order name: Phosphorus EDMS 09/23 10:57 Order name: Phosphorus EDMS 09/23 10:57 Order name: Troponin High Sensitivity EDMS 09/23 10:57 Order name: Troponin High Sensitivity EDMS 09/23 10:57 Order name: Troponin High Sensitivity EDMS 09/23 14:55 Order name: Lactate w/ 2H reflex if indic. EDMS 09/23 07:53 Order name: CT Head Brain wo Cont; Complete Time: 08:44 rn 09/23 07:53 Order name: CT Lumbar Spine Wo Con; Complete Time: 08:44 rn 09/23 07:53 Order name: Chest Single View XRAY; Complete Time: 08:44 rn 09/23 08:54 Order name: XRAY Knee RIGHT 3 view; Complete Time: 10:34 rn 09/23 08:54 Order name: XRAY Hip RIGHT 2 view; Complete Time: 10:34 rn 09/23 10:58 Order name: Brain Wo Cont; Complete Time: 12:30 EDMS 09/23 07:53 Order name: EKG; Complete Time: 07:54 rn 09/23 10:57 Order name: CONS Physician Consult EDMS 09/23 10:57 Order name: Physical Therapy Consult EDMS 09/23 10:57 Order name: Heart Healthy EDMS 09/23 11:02 Order name: Occupational Therapy Consult EDTX 09/23 11:02 Order name: Case Management Consult EDTX 09/23 07:53 Order name: Cardiac monitoring; Complete Time: 08:19 rn 09/23 07:53 Order name: EKG - Nurse/Tech; Complete Time: 08:19 rn 09/23 07:53 Order name: IV Saline Lock; Complete Time: 08:19 rn 09/23 07:53 Order name: Labs collected and sent; Complete Time: 08:19 rn 09/23 07:53 Order name: O2 Per Protocol; Complete Time: 08:19 rn 09/23 07:53 Order name: O2 Sat Monitoring; Complete Time: 08:19 rn Administered Medications: 08:19 Drug: NS 0.9% IV 500 ml Route: IV; Rate: bolus; Site: right forearm; bp Disposition Summary: 09/23/22 09:58 Hospitalization Ordered Hospitalization Status: Observation rn Provider: Arturo Culver rn Location: Telemetry/MedSurg (observation) rn Condition: Stable rn Problem: new rn Symptoms: are unchanged rn Bed/Room Type: Standard rn Room Assignment: 202(09/23/22 13:00) [email or web address] Diagnosis - Fall on same level, unspecified rn - Muscle weakness (generalized) rn - Dehydration rn Forms: - Medication Reconciliation Form rn - SBAR form rn Signatures: Dispatcher [employer] EDMarilia Cox, PATTERNMAKER BENCH-C PATTERNMAKER BENCH-Csnw Pravin Waggoner MD MD rn Peltier, Brian, RN Ronda Manley kj1 Corrections: (The following items were deleted from the chart) 13:00 09:58 rn kj1
--- NOTE | 2022-09-23 10:13 | P.HP ---
Certification for Inpatient Patient admitted to: Observation With expected LOS: <2 Midnights Patient will require the following post-hospital care: None Practitioner: I am a practitioner with admitting privileges, knowledge of patient current condition, hospital course, and medical plan of care. Services: Services provided to patient in accordance with Admission requirements found in Title 42 Section 412.3 of the Code of Federal Regulations Patient History Date of Service: 09/23/22 Primary Care Provider: Dr. Woods Reason for admission: Fall History of Present Illness: Service was provided via video visit/Tele-Medicine. For that reason, no physical examination was performed. Verbal consent was obtained prior to visit. Mr. 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 History is provided by him and his daughter, Ms. Rangel, at bedside. They report that he recently developed a cerebrovascular accident and was admitted to inpatient rehab in August 2022. He was discharged home with Home Health, and was reportedly doing very well. They have had a 24 hour caregiver taking care of him at home. He reports having to wake up 4-5 times per night to urinate due to his enlarged prostate. This morning, around 06:30 AM, he woke up to urinate. However, he felt severe generalized weakness and sustained a ground level fall. There was no reported head trauma or loss of consciousness. He denies any numbness, tingling. On review of systems, he reports chronic back pain, but denies any fevers, chills, headaches, dizziness, syncope, chest pain, palpitations, shortness of breath, wheezing, cough, abdominal pain, nausea/v omiting, dysuria, or any other symptoms. Upon presentation, his vital signs were stable. His laboratory studies were notable for a WBC count of 12,200 and a creatinine of 1.97 (baseline ~1.4-1.5). Troponin x 1 was 14.6. EKG was without STEMI criteria. Chest x-ray revealed, "no acute cardiopulmonary disease." CT head revealed, "no acute intracranial abnormality. Subacute left centrum semiovale infarct is similar." CT lumbar spine revealed, "no lumbar spine fracture identified. Remote L2 compression fracture. Postsurgical changes from recent L4 decompression without apparent complication." Right hip x-ray revealed, "No right hip fracture or dislocation identified. The right superior and inferior pubic ramus difficult to adequately evaluate due to positioning and overlying bowel contents. Mild right acetabular degenerative changes." Right knee x-ray revealed, "no acute fracture. No malalignment. Severe patellofemoral compartment degenerative changes. Mild to moderate medial compartment narrowing and mild lateral compartment narrowing. Chondrocalcinosis. Small nonspecific knee effusion." In the Emergency Department, he was given 500 mL Normal Saline. He was admitted to the General I nternal Medicine Service under Dr. Vera for further evaluation. Allergies amitriptyline Allergy (Verified 08/24/22 12:04) unknown ezetimibe Allergy (Verified 08/24/22 12:04) unknown latex Allergy (Verified 08/24/22 12:04) unknown lovastatin Allergy (Verified 08/24/22 12:04) Joint pain Home medications list reviewed: Yes Home Medications: Finasteride [Proscar*] 5 mg PO DAILY 08/12/22 Glucos Sul 2Kcl/MSM/Chond/C/Mn [Glucosamine Chondroitin Cap] 1 each PO DAILY 08/12/22 Mirtazapine [Remeron*] 15 mg PO BEDTIME 08/12/22 Multivitamin 1 each PO DAILY 08/12/22 Polyethylene Glycol 3350 [Miralax] 17 gm PO DAILY 08/12/22 Primidone [Mysoline *] 25 mg PO DAILY 08/12/22 Tramadol HCl [Ultram] 50 mg PO Q6H PRN 08/12/22 Vit C/E/Zn/Coppr/Lutein/Zeaxan [Preservision Areds 2 Softgel] 1 each PO DAILY 08/12/22 Aspirin [Aspirin EC 81 MG] 81 mg PO DAILY #30 tab 08/24/22 Atorvastatin Calcium [Lipitor*] 20 mg PO BEDTIME tab 08/24/22 Folic Acid 1 mg PO DAILY #30 tab 08/24/22 Lidocaine 4% Patch [Lidoderm 5% Patch*] 1 patch TOP DAILY pat 08/24/22 Magnesium Oxide [Magnesium] 400 mg PO BID 08/24/22 - Past Medical/Surgical History Diabetic: No -: BPH -: Spine Stenosis -: Nonessential tremors -: Squamous cell carcinoma, -: Constipation -: CVA -: Right knee meniscus tear -: Appendectomy -: Tonsillectomy -: 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 -: C5 herinated disc repair - Family History Family History: Reviewed- Non-Contributory - Social History Smoking Status: Never smoker Alcohol use: No CD- Drugs: No Caffeine use: Yes Review of Systems General: Weakness (generalized) Eyes: Unremarkable ENT: Unremarkable Respiratory: Unremarkable Cardiovascular: Unremarkable Gastrointestinal: Unremarkable Genitourinary: Unremarkable Musculoskeletal: Unremarkable Integumentary: Unremarkable Neurological: Weakness Physical Examination - Vital Signs Blood Pressure: 131/66 Pulse: 76 Respirations: 16 Pulse Ox (%): 96 - Physical Exam General: Alert, In no apparent distress, Oriented x3 HEENT: Atraumatic, Sclerae nonicteric Neurological: Other (Upper extremity essential tremor (left > right) noted) - Studies Laboratory Data (last 24 hrs) 09/23/22 08:05: PT 10.9, INR 0.99, APTT 23.5 L 09/23/22 08:05: WBC 12.20 H, Hgb 13.0 L, Hct 38.9 L, Plt Count 199 09/23/22 08:05: Sodium 136, Potassium 4.2, BUN 29 H, Creatinine 1.97 H, Glucose 121 H, Magnesium 2.2, Total Bilirubin 0.7, AST 26, ALT 24, Alkaline Phosphatase 60 Assessment and Plan - Plan # Generalized Weakness complicated by Ground-Level Fall in Recent Cerebrovascular Accident - Evaluation thus far: - Troponin = 14.6 - EKG = possible accelerated junctional rhythm - CT head = "no acute intracranial abnormality. Subacute left centrum semiovale infarct is similar." - Right hip x-ray = "no right hip fracture or dislocation identified. The right superior and inferior pubic ramus difficult to adequately evaluate due to positioning and overlying bowel contents. Mild right acetabular degenerative changes." - Right knee x-ray = "no acute fracture. No malalignment. Severe patellofemoral compartment degenerative changes. Mild to moderate medial compartment narrowing and mild lateral compartment narrowing. Chondrocalcinosis. Small nonspecific knee effusion." - MRI brain = pending - Management plan: - Consulted Neurology - recommendations appreciated - Consulted Cardiology - recommendations appreciated - Continue home aspirin, folic acid, atorvastatin - Clopidogrel was discontinued by PCP due to penile bleeding - Consulted PT/OT - May require placement appreciate CM assistance - Fall precautions # KDIGO Stage I Acute Kidney Injury on Chronic Kidney Disease Stage III - Evaluation thus far: - Creatinine = 1.97 (baseline creatinine ~1.4-1.5) - Urinalysis = pending - Renal ultrasound = pending - Management plan: - Nephrology consulted recommendations appreciated - S/P 500 mL Normal Saline in ED - Monitor creatinine and urine output - Renally dose medications # Chronic Back Pain s/p Surgery # L2 Compression Fraction - CT lumbar spine = "no lumbar spine fracture identified. Remote L2 compression fracture. Postsurgical changes from recent L4 decompression without apparent complication." - Continue home lidocaine patch # Essential Tremors - Neurology consulted - recommendations appreciated - Continue home primidone # Benign Prostatic Hyperplasia - Continue home finasteride Arturo Culver M.D. - Advance Directives Does patient have a Living Will: No Does patient have a Durable POA for Healthcare: Yes
--- NOTE | 2022-09-23 10:20 | RAD REPORT ---
EXAM DESCRIPTION: RAD - Knee Right 3 View - 09/23/2022 10:09 am CLINICAL HISTORY: PAIN COMPARISON: No comparisons FINDINGS/IMPRESSION: No acute fracture. No malalignment. Severe patellofemoral compartment degenerat paul changes. Mild to moderate medial compartment narrowing and mild lateral compartment narrowing. Ch ondrocalcinosis. Small nonspecific knee effusion.
--- NOTE | 2022-09-23 10:27 | RAD REPORT ---
EXAM DESCRIPTION: RAD - Hip Right 2 View - 09/23/2022 10:11 am CLINICAL HISTORY: PAIN COMPARISON: No comparisons FINDINGS/IMPRESSION: No right hip fracture or dislocation identified. The right superior and inferio r pubic ramus difficult to adequately evaluate due to positioning and overlying bowel contents. Mild right acetabular degenerative changes.
[2022-09-23 11:55] LABS: Specific Gravity 1.018 (1.005-1.030); Urine Bacteria >50 /HPF (<20); Urine Bilirubin NEGATIVE (Negative); Urine Blood 2+ (Negative); Urine Clarity Turbid (Clear); Urine Color Yellow (Yellow); Urine Glucose NEGATIVE (Negative); Urine Mucus Slight /HPF (None Seen); Urine Protein 1+ (Negative); Urine RBC >50 /HPF (None Seen); Urine Urobilinogen Normal (Normal); Urine pH 6.5 (5.0-7.0)
--- NOTE | 2022-09-23 12:06 | EKG ---
Test Date: 2022-09-23 Test Time: 08:12:42 [employer] Analysts: BP MEASUREMENT RESULTS: Intervals: Rate: 84 CA: QRSD: 92 QT: 362 QTc: 427 [place]: P: CA: QRS: -20 T: 107 INTERPRETIVE STATEMENTS: Accelerated Junctional rhythm Minimal voltage criteria for LVH, may be normal variant Septal infarct, age undetermined T wave abnormality, consider lateral ischemia Abnormal ECG Compared to ECG 08/03/2021 18:16:03 Accelerated junctional rhythm now present Left ventricular hypertrophy now present T-wave abnormality now present Possible ischemia now present Sinus rhythm no longer present First degree AV block no longer present Myocardial infarct finding still present Electronically Signed On 09-23-22 12:05:48 CDT by Patrick Roach
--- NOTE | 2022-09-23 12:27 | RAD REPORT ---
EXAM DESCRIPTION: MRI - Brain Wo Cont - 09/23/2022 12:08 pm CLINICAL HISTORY: fall, recent CVA COMPARISON: Brain Wo Cont dated 08/19/2022 TECHNIQUE: Sagittal T1-weighted images were obtained along with PD/heavily T2-weighted and T2-FLAIR images. Axial DWI and ADC mapping sequences were also obtained along with coronal heavily T2-weighted images were obtained. FINDINGS: Subacute left centrum semiovale infarct is unchanged in size. No intracranial hemorrhage, mass or acute infarction. There is no edema or shift of midline structure s. No extra-axial fluid collections. Signal voids are seen as a normal finding in the major intracran ial vessels. Moderate chronic small vessel ischemic changes. Cerebral atrophy. Mastoid air cells and paranasal sinuses are clear. IMPRESSION: Subacute left centrum semiovale infarct is similar in size. No new infarct identified. N o acute intracranial abnormality otherwise.
[2022-09-23] MEDS: CEFTRIAXONE 1,000 MG in NA CHLORIDE 0.9% 50 ML IVPB SCH (13:30)
[2022-09-23] MEDS: ACETAMINOPHEN 325 MG TABLET PO PRN ×2 (17:28→20:13)
[2022-09-23 18:02] VITALS: BMI 27.1
[2022-09-23] MEDS ORDERED: NA CHLORIDE 0.9% 500 ML IV ONE (18:33)
[2022-09-23] MEDS: NA CHLORIDE 0.9% 1,000 ML IV SCH (18:52)
[2022-09-23] MEDS: HEPARIN 5000 UNIT/ML 1 ML VIAL SQ SCH (20:14)
[2022-09-23] MEDS: ATORVASTATIN 20 MG TAB PO SCH (20:14)
[2022-09-23] MEDS: MIRTAZAPINE 15 MG TAB PO SCH (20:14)
--- NOTE | 2022-09-24 01:18 | P.CNS ---
Date of Consult: 09/24/22 Reason for Consult: Gross hematuria Primary Care Provider: Dr. 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 His daughter reports after suffering a seated fall, it took 4 people to get him off because he was un able to assist in using his legs. She has had his symptoms were very similar to his CVA earlier this year. The patient reports having had a degree of dysuria for the last 5 to 7 days, and 3 days ago, he developed some gross hematuria. He also acknowledges issues with nocturia x4-5. He is on finasteride. He has been admitted and placed on ceftriaxone with a neurologic evaluation that has been partially completed with active evaluation underway. Renal ultrasound is pending for his CKD given apparent baseline creatinine of 1.4-1.5 and current creatinine of 1.97. Past medical history: As above Past surgical history: Appendectomy, C-spine surgery, lumbar spine surgery as above, facial skin cancer removals Allergy: Codeine, but amitriptyline, latex, lovastatin, and ezetimibe are all listed as additional allergies that are unverified Examination: Patient was a touch somnolent on my arrival, but was arousable and able to communicate with slowed and hesitant speech He was oriented to person, place and time There was no dyspnea or sign of respiratory distress His abdomen was soft, nontender, nondistended, no masses were palpable Genitalia circumcised without lesion, orthotopic meatus patent without discharge. Testes bilaterally descended without mass and nontender. Scrotum normal. 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 -Follow-up urine culture and treat accordingly -Continue finasteride -If patient tolerates alpha-aranza, he may benefit from the addition of Flomax, but must watch for orthostatic hypotension -I requested his nurse to check a bladder scan postvoid residual: As long as his PVR <200 cc, we will follow-up further on that as an outpatient. If PVR greater than 400 cc, recommend placement of an 18 Cameroonian coud tipped Duff catheter. IF PVR 200-400, reassess daily during hospital admission and place catheter if progressively worsening or if sign of hydronephrosis on U/S or CT -May complete renal ultrasound as ordered, but a better study would be CT abdomen and pelvis without contrast to rule out stone, tumor, or foreign body in bladder underlying his gross hematuria -Limited due to inability to provide IV contrast. -Collect a voided urine for cytology and FISH to assess for malignant cells in the urine pathologically -Follow-up in urology clinic within the month for cystoscopy to assess the anatomy of any obstruction and the source of his gross hematuria -Given his history of CVA and cervical and lumbar spinous procedures, he may benefit also from urodynamics evaluation following cystoscopy Allergies amitriptyline Allergy (Verified 08/24/22 12:04) unknown ezetimibe Allergy (Verified 08/24/22 12:04) unknown latex Allergy (Verified 08/24/22 12:04) unknown lovastatin Allergy (Verified 08/24/22 12:04) Joint pain Home medications list reviewed: Yes Home Medications: Finasteride [Proscar*] 5 mg PO DAILY 08/12/22 Glucos Sul 2Kcl/MSM/Chond/C/Mn [Glucosamine Chondroitin Cap] 1 each PO DAILY 08/12/22 Mirtazapine [Remeron*] 15 mg PO BEDTIME 08/12/22 Multivitamin 1 each PO DAILY 08/12/22 Polyethylene Glycol 3350 [Miralax] 17 gm PO DAILY 08/12/22 Primidone [Mysoline *] 25 mg PO DAILY 08/12/22 Tramadol HCl [Ultram] 50 mg PO Q6H PRN 08/12/22 Vit C/E/Zn/Coppr/Lutein/Zeaxan [Preservision Areds 2 Softgel] 1 each PO DAILY 08/12/22 Aspirin [Aspirin EC 81 MG] 81 mg PO DAILY #30 tab 08/24/22 Atorvastatin Calcium [Lipitor*] 20 mg PO BEDTIME tab 08/24/22 Folic Acid 1 mg PO DAILY #30 tab 08/24/22 Lidocaine 4% Patch [Lidoderm 5% Patch*] 1 patch TOP DAILY pat 08/24/22 - Past Medical/Surgical History Diabetic: No -: BPH -: Spine Stenosis -: Nonessential tremors -: Squamous cell carcinoma, -: Constipation -: CVA -: Right knee meniscus tear -: Appendectomy -: Tonsillectomy -: 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 -: C5 herinated disc repair -: 08/16-Decompression surgery L4 and L5 for stenosis - Family History Father Medical History: Heart disease Sister Medical History: Cancer - Social History Smoking Status: Unknown if ever smoked Alcohol use: No CD- Drugs: No Caffeine use: Yes Place of Residence: Home Physical Examination Temp Pulse Resp BP Pulse Ox 99.6 F 65 17 105/52 L 92 09/23/22 20:13 09/23/22 20:00 09/23/22 20:00 09/23/22 20:00 09/23/22 20:00 Laboratory Data (last 24 hrs) 09/23/22 08:05: PT 10.9, INR 0.99, APTT 23.5 L 09/23/22 08:05: WBC 12.20 H, Hgb 13.0 L, Hct 38.9 L, Plt Count 199 09/23/22 08:05: Sodium 136, Potassium 4.2, BUN 29 H, Creatinine 1.97 H, Glucose 121 H, Magnesium 2.2, Total Bilirubin 0.7, AST 26, ALT 24, Alkaline Phosphatase 60 - Problems (1) Gross hematuria Current Visit: Yes Status: Acute (2) BPH loc w urin obs/LUTS Current Visit: Yes Status: Acute (3) Voiding dysfunction Current Visit: Yes Status: Acute (4) Acute cystitis Current Visit: Yes Status: Acute (5) History of CVA with residual deficit Current Visit: Yes Status: Acute Conclusions/Impression: see A/P in HPI Critical Care: No Time Spent Managing Pts care (In Minutes): 60
[2022-09-24 06:23] LABS: Absolute Lymphocytes (CBC) 1.8 K/uL (0.7-4.9); Hematocrit 33.5 % (39.6-49.0); Lymphocytes % 14.4 % (15.3-44.8); MCV 100.1 fL (80-100); MPV 6.6 fL (7.6-11.3); RBC Red Blood Cell Count 3.34 M/uL (4.33-5.43)
[2022-09-24 06:39] LABS: Magnesium 2.1 mg/dL (1.6-2.4); Phosphorus 2.6 mg/dL (2.5-4.9)
[2022-09-24] MEDS: PRIMIDONE 50 MG TAB PO SCH (09:00)
[2022-09-24] MEDS: NA CHLORIDE 0.9% 1,000 ML IV SCH (09:50)
[2022-09-24] MEDS: LIDOCAINE 4% PATCH TOP SCH (09:53)
[2022-09-24] MEDS: FOLIC ACID 1 MG TABLET PO SCH (09:57)
[2022-09-24] MEDS: ACETAMINOPHEN 325 MG TABLET PO PRN (09:57)
[2022-09-24] MEDS: ASPIRIN EC 81 MG TAB PO SCH (09:57)
[2022-09-24] MEDS: HEPARIN 5000 UNIT/ML 1 ML VIAL SQ SCH ×2 (09:58→19:50)
[2022-09-24] MEDS: CEFTRIAXONE 1,000 MG in NA CHLORIDE 0.9% 50 ML IVPB SCH (10:04)
[2022-09-24] MEDS: FINASTERIDE 5 MG TAB PO SCH (11:53)
--- NOTE | 2022-09-24 15:07 | P.CNS ---
Date of Consult: 09/24/22 Reason for Consult: Renal falure Requesting Physician: Nato Vrea Primary Care Provider: Dr. 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 No reported head trauma or loss of consciousness. Referred to Nephrology for BRIAN. SCr 2.0 on adm. Baseline SCr 1.4-1.5 He received IV fluids. SCr improved to 1.7 today. He takes finasteride for BPH. Allergies amitriptyline Allergy (Verified 08/24/22 12:04) unknown ezetimibe Allergy (Verified 08/24/22 12:04) unknown latex Allergy (Verified 08/24/22 12:04) unknown lovastatin Allergy (Verified 08/24/22 12:04) Joint pain Home Medications: Finasteride [Proscar*] 5 mg PO DAILY 08/12/22 Glucos Sul 2Kcl/MSM/Chond/C/Mn [Glucosamine Chondroitin Cap] 1 each PO DAILY 08/12/22 Mirtazapine [Remeron*] 15 mg PO BEDTIME 08/12/22 Multivitamin 1 each PO DAILY 08/12/22 Polyethylene Glycol 3350 [Miralax] 17 gm PO DAILY 08/12/22 Primidone [Mysoline *] 25 mg PO DAILY 08/12/22 Tramadol HCl [Ultram] 50 mg PO Q6H PRN 08/12/22 Vit C/E/Zn/Coppr/Lutein/Zeaxan [Preservision Areds 2 Softgel] 1 each PO DAILY 08/12/22 Aspirin [Aspirin EC 81 MG] 81 mg PO DAILY #30 tab 08/24/22 Atorvastatin Calcium [Lipitor*] 20 mg PO BEDTIME tab 08/24/22 Folic Acid 1 mg PO DAILY #30 tab 08/24/22 Lidocaine 4% Patch [Lidoderm 5% Patch*] 1 patch TOP DAILY pat 08/24/22 - Past Medical/Surgical History Diabetic: No -: BPH -: Spine Stenosis -: Nonessential tremors -: Squamous cell carcinoma, -: Constipation -: CVA -: Right knee meniscus tear -: Appendectomy -: Tonsillectomy -: 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 -: C5 herinated disc repair -: 08/16-Decompression surgery L4 and L5 for stenosis - Family History Father Medical History: Heart disease Sister Medical History: Cancer - Social History Smoking Status: Unknown if ever smoked Alcohol use: No CD- Drugs: No Caffeine use: Yes Place of Residence: Home Review of Systems is unable to be obtained (d/t AMS) Physical Examination Temp Pulse Resp BP Pulse Ox 97.7 F 65 14 143/64 H 94 09/24/22 08:00 09/24/22 08:00 09/24/22 08:00 09/24/22 08:00 09/24/22 08:00 General: Other (chronically ill-appearing) HEENT: Atraumatic, Normocephalic Neck: Supple, JVD not distended Respiratory: Other (symmetric chest expansion) Cardiovascular: No rubs, No murmurs Gastrointestinal: Soft and benign, No guarding Musculoskeletal: No clubbing Integumentary: No warmth Neurological: Normal tone Urinary: Other (no bladder distention) External genitalia: Deferred Rectal: Deferred Conclusions/Impression: # BRIAN likely 2/2 prerenal state +/- obstructive uropathy SCr 2.0 on adm, improved to 1.7 today Urinalysis showed proteinuria, pyuria, hematuria Urine chemistry non-prerenal Has mild proteinuria 0.5 g on random UPCR CPK wnl, no rhabdo iPTH wnl, no e/o advanced cKD at baseline BNP sig elevated F/u CT A/P [place] by mouth fluid intake. 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
--- NOTE | 2022-09-24 15:08 | P.PN ---
Subjective Date of Service: 09/24/22 Primary Care Provider: Dr. Woods Chief Complaint: Fall Subjective: No new changes, Improving Physical Examination - Vital Signs Temperature: 97.7 F Blood Pressure: 143/64 Pulse: 65 Respirations: 14 Pulse Ox (%): 94 - Physical Exam General: Alert, Oriented x3 HEENT: Atraumatic, Normocephalic Neck: Supple Cardiovascular: Regular rate/rhythm, Normal S1 S2 Gastrointestinal: Soft and benign Musculoskeletal: Swelling (of right knee.) Neurological: Normal speech Assessment And Plan - Plan Fall: No new development. Fractures were not found on imaging. Physical therapy and OT assessing patient. Follow closely. Benign prostatic hypertrophy: Hematuria noted. Urology following. Cytology and FISH test pending. History of CVA: No new development. We will follow closely. Hyperlipidemia: We will continue statin therapy. Disposition: Pending work-up of hematuria and evaluation of deconditioning and fall episode.
--- NOTE | 2022-09-24 16:34 | RAD REPORT ---
EXAM DESCRIPTION: CT - Abdomen Pelvis Wo Contrast - 09/24/2022 3:54 pm CLINICAL HISTORY: BRIAN, assess for stone, BPH, hydronephrosis, CKD COMPARISON: Spine Lumbar Wo Con dated 09/23/2022 TECHNIQUE: Thin cut axial CT imaging of the abdomen and pelvis was performed without IV contrast. Mu ltiplanar reformats were generated and reviewed. All CT scans are performed using dose optimization technique as appropriate and may include automated exposure control or mA/KV adjustment according to patient size. FINDINGS: Trace layering bilateral effusions with subsegmental dependent atelectasis. . The liver, spleen, and pancreas show no suspicious findings. Gallbladder and biliary tree are also wi thout suspicious finding. Symmetric renal contour, without suspicious parenchymal findings within limits of noncontrast techniq ue. No evidence of radiopaque calculi or hydroureteronephrosis. No dilated bowel loops or bowel wall thickening. Minimal fat stranding around the cecum and the proxi mal transverse colon, nonspecific, could relate to segmental colitis. Moderate stool burden throughou t the colon. No free air, free fluid or localized fluid collections. No hernia, mass or bulky lymphad enopathy. The urinary bladder is without significant finding. No suspicious bony findings. Stable severe anterior wedge compression deformity of L2. IMPRESSION: Minimal fat stranding around the cecum and proximal transverse colon, nonspecific, could relate to segmental infectious or inflammatory colitis. Moderate stool burden throughout the colon. No other acute intra-abdominal process. No evidence of hydroureteronephrosis or renal calculi. Trace layering pleural effusions.
--- NOTE | 2022-09-24 17:00 | CON ---
Reason For Consultation: Consultation called because of recent fall. History Of Present Illness: Mr. Spencer is an 86-year-old right-handed patient with mul tiple medical problems including a recent stroke affecting the left centrum semiovale and producing w eakness in his right upper and lower extremities from which he has recovered fairly well. He did agg ressive inpatient rehabilitation and was discharged home from [facility] on the 02 of September. He was doing Home Health and doing well. However, on the morning of the 23 of September, patient got u p and tried to stand, but was unable to and slid down to the floor. He denied any serious injury or any pain in any areas. At [facility], he had x-rays and scans including CT scan of the head and brain MRI, which did not show any acute findings such as either fracture, or stroke either hemor rhagic or ischemic. The brain MRI did identify the left subacute centrum semiovale stroke on the lef t side. The stroke was similar in size to the study done on August 19, 2022, and this was compared to the one done on 09/23/2022. Again, no new infarcts. His laboratory studies did show an elevated ite blood cell count of 12.2, back in September 02 it was 6.3, neutrophils were elevated to 83, and his u rinalysis was consistent with a urinary tract infection showing 500 esterase, greater than 50 red blo od cells, greater than 50 white blood cells, greater than 50 bacteria, nitrite was 2+, blood 2+, keto juan miguel trace, color was turbid. The cultures did grow gram-negative rods greater than 100,000 colony-fo rming units and the sensitivities are still pending. Furthermore, his electrolytes were found to be dehydrated. Creatinine elevated to 1.66, BUN elevated 28. His calcium was low at 8.1, chloride elev ated to 108. In terms of his possible etiology, he did have dehydration, urinary tract infection, an d a fall. Those are likely the combination of dehydration and urinary tract infection. His and actually daughters are at the bedside. They say he was slightly confused at that time and not at [facility] cognitive functioning. He did receive Rocephin 1 g and has been receiving that daily for the urinary tract infection. He continued the aspirin 81 mg daily, folic acid 1 mg daily, Lipitor 20 mg at bedtime. For his comorbid essential tremor, he is on Mysoline 25 mg daily. At the time of my jami luation, cognitively, he was much better following instructions, commands, moving his legs well and a stefanie also well and he was going to be evaluated again by the physical therapist to determine whether o r not he would qualify for another stint at inpatient rehabilitation or Home Health may continue. Azar carlos, the physical therapist at the time of attempted evaluation was not able to, as the patient was being seen by a automatic car wash attendant who was evaluating him and the notes says that the patient will be re-e valuated at later time. This was at 3:30 p.m. Past Medical History: He does have chronic kidney disease, prostate hypertrophy, and the prior strok es, chronic back pain, status post multiple back surgery. Also, squamous cell carcinoma, chronic con stipation, right knee meniscus tear. Past Surgical History: Appendectomy, tonsillectomy, removal of squamous cell carcinoma from left lorenzo ek and skin graft and C5 disc herniation surgery. Allergies: AMITRIPTYLINE, EZETIMIBE, LATEX, AND LOVASTATIN. Medications: At home, Proscar 5 mg daily, glucosamine chondroitin daily, Remeron 15 mg at bedtime, m ultivitamin daily, MiraLAX 17 g daily, Mysoline 25 mg daily, Ultram 50 mg daily, PreserVision AREDS _ daily, aspirin 81 mg daily, Lipitor 20 mg at bedtime, folic acid 1 mg daily, lidocaine patc h apply topically daily, magnesium oxide 400 mg twice daily. Social History: No alcohol, tobacco, or IV drug use. Occasional caffeinated beverages. Family History: Noncontributory. Review of Systems: The patient's said he did have a low-grade fever and the confusion, disorientation, diffuse weak ness, and he has had urinary frequency, which is possibly related to prostate hypertrophy in addition to urinary tract infection. Otherwise, no cardiovascular issues. No gastrointestinal issues. He d oes have some pain in the right knee. Otherwise, no significant arthralgias. He does have chronic b ack pain. Physical Examination: Vital Signs: Blood pressure 143/64, pulse of 65, respiratory rate 14, temperature 97.7, oxygen satur ation 94%. General: Mr. Spencer is lying in bed, in no significant distress. HEENT: He appears normocephalic, atraumatic. Sclerae anicteric. Oropharynx is pink and moist. Neck: Supple. Chest: Clear. Heart: Regular. Extremities: No significant edema or cyanosis. Neurological: Alert and oriented to situation and place. Follows simple commands without difficulty . Cranial nerves showed no focal deficits. On motor exam, he has diffuse weakness in the lower extr emities, but at least 4/5 proximally and distally. Sensory exam, stocking-glove loss light touch, te mperature. Reflexes depressed in upper and lower extremities. Coordination slow with intact upper e xtremities. Gait: He ambulated with a gait belt and the therapist is able to get him up and out of bed. Laboratory Studies: INR 0.99, hemoglobin 11.0, platelets 147. Lumbar spine CT scan shows no acute f indings. Assessment And Plan: Mr. Spencer is an 86-year-old patient with a recent left centrum semiovale s troke with right-sided weakness and good recovery. He has a urinary tract infection, prostate hypert rophy with frequent urination, stage 3 kidney disease, dyslipidemia, hyponatremia, depression, lumbar compression fractures, status post decompression, chronic back pain. Plan: 1.He should continue with treatment for his urinary tract infection and continue with hydration. 2.If the physical therapist and occupational therapist, along with speech therapist are able to eval uate him, may be a candidate for aggressive therapy, potentially another stint in inpatient rehab if that is possible and approved by insurance. Otherwise, he may be able to continue if he is unable to return to his baseline with long term, but depending on how quickly he bounces back, he may ev en be able to go home and to continue his physical therapy. Otherwise, he can be observed and continued on current treatment plan. No additional neurological wo rkup is required. LB/MODL Voice ID: [id number] Report ID: [id number]
[2022-09-24 18:35] LABS: Urine Protein/Creatinine Ratio 0.46 ratio (<0.15)
[2022-09-24] MEDS: ATORVASTATIN 20 MG TAB PO SCH (19:50)
[2022-09-24] MEDS: MIRTAZAPINE 15 MG TAB PO SCH (19:50)
[2022-09-25] MEDS: NA CHLORIDE 0.9% 1,000 ML IV SCH ×2 (00:16→11:00)
[2022-09-25] MEDS: LIDOCAINE 4% PATCH TOP SCH (08:23)
[2022-09-25] MEDS: FINASTERIDE 5 MG TAB PO SCH (08:23)
[2022-09-25] MEDS: PRIMIDONE 50 MG TAB PO SCH (08:24)
[2022-09-25] MEDS: ASPIRIN EC 81 MG TAB PO SCH (08:25)
[2022-09-25] MEDS: FOLIC ACID 1 MG TABLET PO SCH (08:25)
[2022-09-25] MEDS: CEFTRIAXONE 1,000 MG in NA CHLORIDE 0.9% 50 ML IVPB SCH (08:26)
[2022-09-25] MEDS: HEPARIN 5000 UNIT/ML 1 ML VIAL SQ SCH ×2 (08:26→20:40)
--- NOTE | 2022-09-25 10:21 | P.PN ---
Subjective Date of Service: 09/25/22 Primary Care Provider: Dr. Woods Chief Complaint: Fall Subjective: No new changes Physical Examination - Vital Signs Temperature: 98.1 F Blood Pressure: 159/82 Pulse: 70 Respirations: 70 Pulse Ox (%): 95 - Physical Exam General: Alert HEENT: Atraumatic, Normocephalic Respiratory: Normal air movement Gastrointestinal: Soft and benign Musculoskeletal: No swelling Assessment And Plan - Plan Fall: No new development. Fractures were not found on imaging. Physical therapy and OT assessing patient. Follow closely. Benign prostatic hypertrophy: Hematuria noted. Urology following. Cytology and FISH test pending. CT abdomen/pelvis showed no acute prostatic pathology. History of CVA: No new development. We will follow closely. Hyperlipidemia: We will continue statin therapy. Disposition: Pending work-up of hematuria and evaluation of deconditioning and fall episode.
--- NOTE | 2022-09-25 11:38 | CON ---
Date of Consultation: 09/24/[address] The patient admitted to Dr. Culver and Dr. Vera on 09/23/2022. Reason For Consultation: Abnormal EKG. History Of Present Illness: The patient is 86. He was in the hospital after a fall. There was ques tion about placement and rehab of acute kidney injury with a creatinine of 1.97. EKG showed sinus rh ythm with occasional junctional beats, and he has had same EKG in the past. [facility] and had a fairly unremarkable cardiovascular workup. He has no cardiac symptoms. Past Medical History: Detailed by Dr. Vera and Dr. Culver. Allergies: HE IS ALLERGIC TO ZETIA, LOVASTATIN, LASIX, AND ELAVIL. Review of Systems: Negative. Social History: Negative. Family History: Negative. Physical Examination: General: He appeared his stated age. Alert and oriented to name and place. He was in a sinus rhyth m. No atrial fibrillation. Afebrile. HEENT: Negative. Neck: Supple. No bruit. Chest: Clear. Cardiac: Revealed regular rhythm and rate. S4 gallop. Aortic sclerosis, murmur. No rubs. Abdomen: Benign. Extremities: Revealed no clubbing, cyanosis, or edema. Laboratory Data: Workup: He had an echo, venous Doppler carotid in July 2022. They were fairly un remarkable. Creatinine 1.97. He probably had UTI. Medications: He is presently on Lipitor, antibiotics, heparin subcu. Impression And Plan: Junctional rhythm on EKG, asymptomatic. Previous negative cardiovascular beau p. No need to do any more workup at this point. No need to change the therapy. Consider Nephrology consultation. Consider social work consultation, although according to the family, he has 24/7 help from visiting nurses. I will sign off his case personally. NB/MODL Voice ID: [id number] Report ID: [id number]
--- NOTE | 2022-09-25 16:33 | P.PN ---
Subjective Date of Service: 09/25/22 Primary Care Provider: Dr. 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 No reported head trauma or loss of consciousness. Referred to Nephrology for BRIAN. SCr 2.0 on adm. Baseline SCr 1.4-1.5 He received IV fluids. Today no overnight events Cr improved will dc VF PT/OT Physical exam General: Awake, NAD HEENT: Atraumatic, Normocephalic Neck: Supple, no elevated JVD Respiratory: CTAB Cardiovascular: No rubs, No murmurs Gastrointestinal: Soft and benign, Non-distended Musculoskeletal: Rt knee swelling Integumentary: No warmth Neurological: Normal tone, Sensation intact # BRIAN likely 2/2 prerenal state +/- obstructive uropathy SCr 2.0 on adm, improved to 1.7 Has mild proteinuria 0.5 g on random UPCR CPK wnl, no rhabdo CT scan no hyronephrosis will dc IVF # CKD3 presumed to be 2/2 chronic obstructive uropathy Baseline SCr 1.4-1.5 Monitor renal panel # UTI UCx +GNR Cont abx # BPH +Hematuria Cont finasteride # HLD Statin # Anemia Monitor CBC # Mechanical fall, recent CVA PT/OT Per other services Physical Examination - Vital Signs Temperature: 98.1 F Blood Pressure: 159/82 Pulse: 70 Respirations: 70 Pulse Ox (%): 95 - Studies Microbiology Data (last 24 hrs): 09/23/22 11:20 Clean Catch Urine [place] Count - Final >100,000 CFU/ML. 09/23/22 11:20 Clean Catch Urine - Final Escherichia Coli Gram Neg Marco
[2022-09-25] MEDS: ATORVASTATIN 20 MG TAB PO SCH (20:39)
[2022-09-25] MEDS: MIRTAZAPINE 15 MG TAB PO SCH (20:39)
[2022-09-26] MEDS: FINASTERIDE 5 MG TAB PO SCH (09:36)
[2022-09-26] MEDS: LIDOCAINE 4% PATCH TOP SCH (09:36)
[2022-09-26] MEDS: FOLIC ACID 1 MG TABLET PO SCH (09:36)
[2022-09-26] MEDS: PRIMIDONE 50 MG TAB PO SCH (09:36)
[2022-09-26] MEDS: CEFTRIAXONE 1,000 MG in NA CHLORIDE 0.9% 50 ML IVPB SCH (09:36)
[2022-09-26] MEDS: ASPIRIN EC 81 MG TAB PO SCH (09:36)
--- NOTE | 2022-09-26 09:51 | P.PN ---
Subjective Date of Service: 09/26/22 Primary Care Provider: Dr. Woods Chief Complaint: Fall Subjective: No new changes, Improving Physical Examination - Vital Signs Temperature: 97.3 F Blood Pressure: 152/76 Pulse: 61 Respirations: 14 Pulse Ox (%): 94 - Physical Exam General: Alert, Oriented x3 HEENT: Atraumatic, Normocephalic Neck: Supple Respiratory: Normal air movement Cardiovascular: Regular rate/rhythm, Normal S1 S2 Gastrointestinal: Soft and benign - Studies Microbiology Data (last 24 hrs): 09/23/22 11:20 Clean Catch Urine [place] Count - Final >100,000 CFU/ML. 09/23/22 11:20 Clean Catch Urine - Final Escherichia Coli Gram Neg Marco Assessment And Plan - Plan Fall: No new development. Fractures were not found on imaging. Physical therapy and OT assessing patient. Follow closely. Benign prostatic hypertrophy: Hematuria noted. Urology following. Cytology and FISH test pending. CT abdomen/pelvis showed no acute prostatic pathology. History of CVA: No new development. We will follow closely. Hyperlipidemia: We will continue statin therapy. Knee pain: Pt has medical collateral ligament sprain from fall. OT/PT following for management recommendation. Disposition: Pending work-up of hematuria and evaluation of deconditioning and fall episode. Rehabilitation placement pending.
[2022-09-26] MEDS: HEPARIN 5000 UNIT/ML 1 ML VIAL SQ SCH ×2 (09:59→21:32)
--- NOTE | 2022-09-26 10:20 | P.PN ---
Subjective Date of Service: 09/26/22 Primary Care Provider: Dr. 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 No reported head trauma or loss of consciousness. Referred to Nephrology for BRIAN. SCr 2.0 on adm. Baseline SCr 1.4-1.5 He received IV fluids. 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 09/23/22 11:20 Clean Catch Urine - Final Escherichia Coli Gram Neg Marco
[2022-09-26] MEDS ORDERED: AMLODIPINE 5 MG TAB PO SCH (11:00)
[2022-09-26] MEDS: ACETAMINOPHEN 325 MG TABLET PO PRN (16:06)
[2022-09-26 17:41] LABS: Absolute Lymphocytes (CBC) 1.6 K/uL (0.7-4.9); Hematocrit 35.1 % (39.6-49.0); Lymphocytes % 20.2 % (15.3-44.8); MCV 99.2 fL (80-100); MPV 6.6 fL (7.6-11.3); RBC Red Blood Cell Count 3.54 M/uL (4.33-5.43)
[2022-09-26 17:52] LABS: Potassium 4.5 mEq/L (3.5-5.1)
[2022-09-26] MEDS: MIRTAZAPINE 15 MG TAB PO SCH (21:33)
[2022-09-26] MEDS: ATORVASTATIN 20 MG TAB PO SCH (21:33)
[2022-09-27] MEDS: PRIMIDONE 50 MG TAB PO SCH (08:52)
[2022-09-27] MEDS: FINASTERIDE 5 MG TAB PO SCH (08:53)
[2022-09-27] MEDS: FOLIC ACID 1 MG TABLET PO SCH (08:53)
[2022-09-27] MEDS: ASPIRIN EC 81 MG TAB PO SCH (08:53)
[2022-09-27] MEDS: HEPARIN 5000 UNIT/ML 1 ML VIAL SQ SCH ×2 (08:54→21:28)
[2022-09-27] MEDS: LIDOCAINE 4% PATCH TOP SCH (08:54)
[2022-09-27] MEDS: CEFTRIAXONE 1,000 MG in NA CHLORIDE 0.9% 50 ML IVPB SCH (08:55)
[2022-09-27] MEDS ORDERED: AMLODIPINE 5 MG TAB PO SCH (10:18)
--- NOTE | 2022-09-27 17:15 | P.PN ---
Subjective Date of Service: 09/27/22 Primary Care Provider: Dr. Woods Chief Complaint: Fall No acute events overnight. He reports that he feels well overall, but is experiencing generalized weakness. He states that is hematuria is unchanged. His blood pressure was soft overnight, which he attributes to the amlodipine. He denies any chest pain, palpitations, or shortness of breath. Review of Systems 10-point ROS is otherwise unremarkable General: Weakness (generalized) Physical Examination - Vital Signs Temperature: 97.9 F Blood Pressure: 110/62 Pulse: 63 Respirations: 14 Pulse Ox (%): 92 - Physical Exam General: Alert, In no apparent distress, Oriented x3 HEENT: Atraumatic, Mucous membr. moist/pink, Sclerae nonicteric Neck: JVD not distended Respiratory: Clear to auscultation bilaterally, Normal air movement Cardiovascular: No edema, Regular rate/rhythm, Normal S1 S2, No gallops, No rubs, No murmurs Gastrointestinal: Normal bowel sounds, Soft and benign, Non-distended, No tenderness, No rebound, No guarding Musculoskeletal: No clubbing Integumentary: No rashes Neurological: Normal speech, Normal tone, Sensation intact, Cranial nerves 3-12 intact, Normal affect, Other (5/5 strength in BUE, LLE. 3-4/5 strength in RLE.) Assessment And Plan - Plan # Generalized Weakness complicated by Ground-Level Fall in Recent Cerebrovascular Accident - Evaluation thus far: - Troponin = 14.6 - EKG = possible accelerated junctional rhythm - CT head = "no acute intracranial abnormality. Subacute left centrum semiovale infarct is similar." - Right hip x-ray = "no right hip fracture or dislocation identified. The right superior and inferior pubic ramus difficult to adequately evaluate due to positioning and overlying bowel contents. Mild right acetabular degenerative changes." - Right knee x-ray = "no acute fracture. No malalignment. Severe patellofemoral compartment degenerative changes. Mild to moderate medial compartment narrowing and mild lateral compartment narrowing. Chondrocalcinosis. Small nonspecific knee effusion." - MRI brain = "subacute left centrum semiovale infarct is similar in size. No new infarct identified. No acute intracranial abnormality otherwise." - Management plan: - Consulted Neurology - recommendations appreciated - Consulted Cardiology - recommendations appreciated - Continue home aspirin, folic acid, atorvastatin - Clopidogrel was discontinued by PCP due to hematuria - Consulted PT/OT - May require placement appreciate CM assistance - Fall precautions # Lindsay-Sensitive Escherichia Coli Urinary Tract Infection - Continue ceftriaxone - will require 7 day course of antibiotics, today is day 5 # KDIGO Stage I Acute Kidney Injury on Chronic Kidney Disease Stage III - resolved - Evaluation thus far: - Creatinine = 1.97 -> 1.66 -> 1.72 -> 1.49 (baseline creatinine ~1.4-1.5) - Urinalysis = trace ketones, 2+ blood, 2+ nitrite, 500 leukocyte esterase, >50 RBCs, >50 WBCs, > 50 bacteria, 1+ protein - Management plan: - Nephrology consulted recommendations appreciated - Monitor creatinine and urine output - Renally dose medications # Gross Hematuria - Urology was consulted and he was evaluated by Dr. Waddell - recommendations appreciated # Chronic Back Pain s/p Surgery # L2 Compression Fraction - CT lumbar spine = "no lumbar spine fracture identified. Remote L2 compression fracture. Postsurgical changes from recent L4 decompression without apparent complication." - Continue home lidocaine patch # Essential Tremors - Neurology consulted - recommendations appreciated - Continue home primidone # Benign Prostatic Hyperplasia - Continue home finasteride Arturo Culver M.D.
[2022-09-27] MEDS: ACETAMINOPHEN 325 MG TABLET PO PRN (18:31)
[2022-09-27] MEDS: MIRTAZAPINE 15 MG TAB PO SCH (21:28)
[2022-09-27] MEDS: ATORVASTATIN 20 MG TAB PO SCH (21:28)
--- NOTE | 2022-09-28 04:56 | PN ---
Date of Progress Note: 09/27/2022 Chief Complaint: Acute kidney injury secondary to prerenal state and obstructive uropathy. Subjective: Patient presented to the hospital and was found to have elevated creatinine up to 2.0 on admission. Baseline creatinine level previously 1.4 to 1.5. The patient has history of chronic kid donny disease stage , hyperlipidemia, enlargement of the prostate, left posterior centrum sugar iovale cerebral accident back in July 2022, history of mechanical fall and generalized weakness. Review of Systems: Denies fever or chills. Physical Examination: Lungs: Clear to auscultation bilaterally. Heart: S1-S2. Abdomen: Soft, benign. Extremities: No edema. Impression And Plan: 1.Acute kidney injury secondary to prerenal state with possible obstructive uropathy. Monitor bladd er scan. Patient has history of proteinuria and does not meet criteria for nephrotic syndrome. CPK is within normal limits. There is no evidence of rhabdomyolysis. CT scan did not show hydronephrosi s. Continue IV fluids as needed. Patient is tolerating p.o. intake. Continue p.o. hydration. 2.Chronic kidney disease stage secondary to chronic obstructive uropathy. Baseline creat inine level 1.4 to 1.5. 3.Urinary tract infection. Continue antibiotics. 4.BPH. Patient has hematuria. Continue finasteride and Urology consultation was requested. 5.Anemia. Monitor CBC. Plan ANGIE as needed. 6.Hypertension. Blood pressure elevated. Patient was started on calcium channel aranza. Continue amlodipine. EB/MODL Voice ID: [id number] Report ID: [id number]
[2022-09-28] MEDS: FOLIC ACID 1 MG TABLET PO SCH (08:50)
[2022-09-28] MEDS: FINASTERIDE 5 MG TAB PO SCH (08:51)
[2022-09-28] MEDS: ASPIRIN EC 81 MG TAB PO SCH (08:51)
[2022-09-28] MEDS: PRIMIDONE 50 MG TAB PO SCH (08:51)
[2022-09-28] MEDS: CEFTRIAXONE 1,000 MG in NA CHLORIDE 0.9% 50 ML IVPB SCH (08:52)
[2022-09-28] MEDS: HEPARIN 5000 UNIT/ML 1 ML VIAL SQ SCH ×2 (08:52→21:19)
[2022-09-28] MEDS: LIDOCAINE 4% PATCH TOP SCH (08:53)
--- NOTE | 2022-09-28 11:55 | RAD REPORT ---
EXAM DESCRIPTION: RADChest Single View09/28/2022 11:21 am CLINICAL HISTORY: cough COMPARISON: Chest Single View dated 09/23/2022; Chest Single View dated 08/22/2022; Chest Single View d ated 08/18/2022; Chest Single View dated 08/03/2021 TECHNIQUE: Portable AP view of the chest. FINDINGS: The lungs are clear. Left basilar atelectasis and elevation of the left hemidiaphragm, sta ble No pneumothorax or effusion. The cardiomediastinal contours are unremarkable. IMPRESSION: No acute cardiopulmonary process.
--- NOTE | 2022-09-28 12:03 | PN ---
Date of Progress Note: 09/28/2022 Subjective: The patient was admitted after a fall, had acute kidney injury, and UTI. According to the family, the patient has been independent at home without any history of any recurrent UTI or urinary retention, but after the fall because of low back surgery 6 weeks ago, the patient started gradually being independent and could not get to the bathroom with a tremor that he has. For that reason, currently the patient on diaper. Upon arrival to the hospital, he had acute kidney injury with creatinine 1.9. The patient was started on hydration. Kidney function gradually has been improved. The patient had couple of occasion of low blood pressure. The patient currently continued to be on diaper, feeling better. No hematuria. Physical Examination: Vital Signs: Blood pressure 122/56, pulse of 65, afebrile. The patient had good urine output, voiding in diaper. Chest: Clear to auscultation. Heart: S1, S2. Regular. Abdomen: Soft, nontender. Extremity: No edema. Neuro: Alert. No focality. Laboratory Data: Sodium 136, potassium 4, bicarb 25, BUN 26, creatinine 1.4, calcium 8.7, GFR up to 45. Hemoglobin 11.8. Reviewing the record for the patient as outpatient, the patient's creatinine hovering around 1.4 to 1.5 with GFR around 42. Urinalysis upon admission; specific gravity 1.018, WBC more than 50, RBC more than 50, PC ratio 0.4. Current Medications: The patient on include; 1. Aspirin. 2. Ceftriaxone. 3. Heparin. 4. Atorvastatin. 5. Mirtazapine. 6. Primidone. 7. Folic acid. 8. Finasteride. Assessment And Plan: 1. Acute kidney injury secondary to toxic ATN with questionable nonmechanical obstructive uropathy secondary to pain medications, on the recovery, back to base line of chronic kidney disease, normal volume. I am going to go ahead and continue current medications and we will monitor the patient closely. 2. Hematuria secondary to urinary tract infection. Continue current antibiotic. We will repeat UA to evaluate the clearance of the infection and the hematuria and we will follow up. 3. Hypertension, controlled, optimal, with the presence of occasional low blood pressure. I am going to accept current blood pressure. We will continue finasteride. 4. Nonmechanical obstruction secondary to pain. Continue finasteride. 5. Chronic kidney disease, stage 3. Baseline creatinine 1.4 to 1.5, status post acute kidney injury secondary to toxic ATN, normal volume. I am going to go ahead and send for PTH. We will follow up the patient. 6. Urinary tract infection E coli, sensitive to ceftriaxone, has been 5 days on ceftriaxone, we will continue. Time spent examining the patient [id number], reviewing the data, lab and radiology, discussing the case with the patient and the daughter by bedside, discussing the case with the prepared foods team leader including nursing staff on the floor, placing order, discussing the case with the hospitalist more than 35 minutes. CHARO Voice ID: [id number] Report ID: [id number] MTDD
[2022-09-28 14:19] LABS: Specific Gravity 1.017 (1.005-1.030); Urine Bilirubin NEGATIVE (Negative); Urine Blood Negative (Negative); Urine Clarity Clear (Clear); Urine Color Light-Yellow (Yellow); Urine Glucose NEGATIVE (Negative); Urine Protein TRACE (Negative); Urine Urobilinogen Normal (Normal); Urine pH 5.5 (5.0-7.0)
[2022-09-28] MEDS: POLYETHYL GLY 3350 17 GM/DOSE PO PRN (16:31)
--- NOTE | 2022-09-28 18:31 | P.PN ---
Subjective Date of Service: 09/28/22 Primary Care Provider: Dr. Woods Chief Complaint: Fall No acute events overnight. He reports no new changes today. He denies any chest pain, palpitations, or shortness of breath. Appreciate CM assistance with placement. Currently pending insurance authorization for inpatient rehab. Review of Systems 10-point ROS is otherwise unremarkable General: Weakness (generalized) Physical Examination - Vital Signs Temperature: 98.3 F Blood Pressure: 137/65 Pulse: 73 Respirations: 16 Pulse Ox (%): 96 - Studies Microbiology Data (last 24 hrs): 09/23/22 14:32 Blood - Blood Aerobic Blood Culture - Final No growth in 5 days. 09/23/22 14:32 Blood - Blood Anaerobic Blood Culture - Final No growth in 5 days. 09/23/22 14:24 Blood - Blood Aerobic Blood Culture - Final No growth in 5 days. 09/23/22 14:24 Blood - Blood Anaerobic Blood Culture - Final No growth in 5 days. Assessment And Plan - Plan - Physical Exam General: Alert, In no apparent distress, Oriented x3 HEENT: Atraumatic, Mucous membr. moist/pink, Sclerae nonicteric Neck: JVD not distended Respiratory: Clear to auscultation bilaterally, Normal air movement Cardiovascular: No edema, Regular rate/rhythm, No murmurs Gastrointestinal: Normal bowel sounds, Soft, Non-distended, No tenderness Musculoskeletal: No clubbing Integumentary: No rashes Neurological: Normal speech, Normal tone, Sensation intact, Cranial nerves 3-12 intact, Normal affect, Other (5/5 strength in BUE, LLE. 3-4/5 strength in RLE.) # Generalized Weakness complicated by Ground-Level Fall in Recent Cerebrovascular Accident - Evaluation thus far: - Troponin = 14.6 - EKG = possible accelerated junctional rhythm - CT head = "no acute intracranial abnormality. Subacute left centrum semiovale infarct is similar." - Right hip x-ray = "no right hip fracture or dislocation identified. The right superior and inferior pubic ramus difficult to adequately evaluate due to positioning and overlying bowel contents. Mild right acetabular degenerative changes." - Right knee x-ray = "no acute fracture. No malalignment. Severe patellofemoral compartment degenerative changes. Mild to moderate medial compartment narrowing and mild lateral compartment narrowing. Chondrocalcinosis. Small nonspecific knee effusion." - MRI brain = "subacute left centrum semiovale infarct is similar in size. No new infarct identified. No acute intracranial abnormality otherwise." - Management plan: - Consulted Neurology - recommendations appreciated - Consulted Cardiology - recommendations appreciated - Continue home aspirin, folic acid, atorvastatin - Clopidogrel was discontinued by PCP due to hematuria - Consulted PT/OT - May require placement appreciate CM assistance - Fall precautions # Lindsay-Sensitive Escherichia Coli Urinary Tract Infection - Continue ceftriaxone - will require 7 day course of antibiotics, today is day 6 # KDIGO Stage I Acute Kidney Injury on Chronic Kidney Disease Stage III - resolved - Evaluation thus far: - Creatinine = 1.97 -> 1.66 -> 1.72 -> 1.49 (baseline creatinine ~1.4-1.5) - Urinalysis = trace ketones, 2+ blood, 2+ nitrite, 500 leukocyte esterase, >50 RBCs, >50 WBCs, > 50 bacteria, 1+ protein - Management plan: - Nephrology consulted recommendations appreciated - Monitor creatinine and urine output - Renally dose medications # Gross Hematuria - Urology was consulted and he was evaluated by Dr. Waddell - recommendations appreciated # Chronic Back Pain s/p Surgery # L2 Compression Fraction - CT lumbar spine = "no lumbar spine fracture identified. Remote L2 compression fracture. Postsurgical changes from recent L4 decompression without apparent complication." - Continue home lidocaine patch # Essential Tremors - Neurology consulted - recommendations appreciated - Continue home primidone # Benign Prostatic Hyperplasia - Continue home finasteride 09/28/2022: Pending insurance authorization for inpatient rehab. Appreciate CM assistance. Arturo Culver M.D.
[2022-09-28] MEDS: ACETAMINOPHEN 325 MG TABLET PO PRN (21:18)
[2022-09-28] MEDS: ATORVASTATIN 20 MG TAB PO SCH (21:18)
[2022-09-28] MEDS: MIRTAZAPINE 15 MG TAB PO SCH (21:19)
[2022-09-29] MEDS: CEFTRIAXONE 1,000 MG in NA CHLORIDE 0.9% 50 ML IVPB SCH (10:59)
[2022-09-29] MEDS: FOLIC ACID 1 MG TABLET PO SCH (11:00)
[2022-09-29] MEDS: ASPIRIN EC 81 MG TAB PO SCH (11:00)
[2022-09-29] MEDS: HEPARIN 5000 UNIT/ML 1 ML VIAL SQ SCH ×2 (11:00→19:51)
[2022-09-29] MEDS: LIDOCAINE 4% PATCH TOP SCH (11:00)
[2022-09-29] MEDS: POLYETHYL GLY 3350 17 GM/DOSE PO PRN (11:21)
--- NOTE | 2022-09-29 11:52 | P.PN ---
Subjective Date of Service: 09/29/22 Primary Care Provider: Dr. Woods Chief Complaint: Fall No acute events overnight. He reports that he feels well this morning. He reports generalized weakness. He denies any chest pain, palpitations, or shortness of breath. Appreciate CM assistance with placement. Currently pending insurance authorization for inpatient rehab. Plan for [id number] today. Review of Systems 10-point ROS is otherwise unremarkable General: Weakness (generalized) Physical Examination - Vital Signs Temperature: 97.1 F Blood Pressure: 141/65 Pulse: 59 Respirations: 14 Pulse Ox (%): 95 - Studies Microbiology Data (last 24 hrs): 09/23/22 14:32 Blood - Blood Aerobic Blood Culture - Final No growth in 5 days. 09/23/22 14:32 Blood - Blood Anaerobic Blood Culture - Final No growth in 5 days. 09/23/22 14:24 Blood - Blood Aerobic Blood Culture - Final No growth in 5 days. 09/23/22 14:24 Blood - Blood Anaerobic Blood Culture - Final No growth in 5 days. Assessment And Plan - Plan - Physical Exam General: Alert, In no apparent distress, Oriented x3 HEENT: Atraumatic, Mucous membr. moist/pink, Sclerae nonicteric Neck: JVD not distended Respiratory: Clear to auscultation bilaterally, Normal air movement Cardiovascular: No edema, Regular rate/rhythm, No murmurs Gastrointestinal: Normal bowel sounds, Soft, Non-distended, No tenderness Musculoskeletal: No clubbing Integumentary: No rashes Neurological: Normal speech, Normal tone, Sensation intact, Cranial nerves 3-12 intact, Normal affect, Other (5/5 strength in BUE, LLE. 3-4/5 strength in RLE.) # Generalized Weakness complicated by Ground-Level Fall in Recent Cerebrovascular Accident - Evaluation thus far: - Troponin = 14.6 - EKG = possible accelerated junctional rhythm - CT head = "no acute intracranial abnormality. Subacute left centrum semiovale infarct is similar." - Right hip x-ray = "no right hip fracture or dislocation identified. The right superior and inferior pubic ramus difficult to adequately evaluate due to positioning and overlying bowel contents. Mild right acetabular degenerative changes." - Right knee x-ray = "no acute fracture. No malalignment. Severe patellofemoral compartment degenerative changes. Mild to moderate medial compartment narrowing and mild lateral compartment narrowing. Chondrocalcinosis. Small nonspecific knee effusion." - MRI brain = "subacute left centrum semiovale infarct is similar in size. No new infarct identified. No acute intracranial abnormality otherwise." - Management plan: - Consulted Neurology - recommendations appreciated - Consulted Cardiology - recommendations appreciated - Continue home aspirin, folic acid, atorvastatin - Clopidogrel was discontinued by PCP due to hematuria - Consulted PT/OT - May require placement appreciate CM assistance - Fall precautions # Lindsay-Sensitive Escherichia Coli Urinary Tract Infection - Continue ceftriaxone - will require 7 day course of antibiotics, today is day 7 # KDIGO Stage I Acute Kidney Injury on Chronic Kidney Disease Stage III - resolved - Evaluation thus far: - Creatinine = 1.97 -> 1.66 -> 1.72 -> 1.49 (baseline creatinine ~1.4-1.5) - Urinalysis = trace ketones, 2+ blood, 2+ nitrite, 500 leukocyte esterase, >50 RBCs, >50 WBCs, > 50 bacteria, 1+ protein - Management plan: - Nephrology consulted recommendations appreciated - Monitor creatinine and urine output - Renally dose medications # Gross Hematuria - Urology was consulted and he was evaluated by Dr. Waddell - recommendations ap preciated # Chronic Back Pain s/p Surgery # L2 Compression Fraction - CT lumbar spine = "no lumbar spine fracture identified. Remote L2 compression fracture. Postsurgical changes from recent L4 decompression without apparent complication." - Continue home lidocaine patch # Essential Tremors - Neurology consulted - recommendations appreciated - Continue home primidone # Benign Prostatic Hyperplasia - Continue home finasteride 09/28/2022: Pending insurance authorization for inpatient rehab. Appreciate CM assistance. 09/29/2022: Pending insurance authorization for inpatient rehab. Message left for [id number], awaiting call back. Appreciate CM assistance. Arturo Culver M.D.
--- NOTE | 2022-09-29 11:53 | PN ---
Date of Progress Note: 09/29/2022 Subjective: The patient was admitted to the hospital with acute kidney injury, UTI. The patient had nonmechanical obstructive uropathy secondary to pain medication. His acute kidney injury, creatinine onesimo to 1.9. The patient was started on hydration. Kidney function started improving, creatinine down to 1.4 today. The patient feeling better. Physical Examination: Vital Signs: When I saw the patient; blood pressure 141/65, pulse of 59, afebrile. Chest: Clear to auscultation. Heart: S1, S2. Regular. Abdomen: Soft, nontender. Extremity: No edema. Neurologic: Alert. No focality. Laboratory Data: Sodium 136, potassium 4, bicarb 25, BUN 26, creatinine 1.4, GFR of 45, calcium 8.7. Reviewing the record for the patient; the patient's baseline creatinine in mid August 1.5 with GFR of 42. Hemoglobin 11.8, PTH 41, vitamin D 30. Current Medications: The patient on include; 1. Ceftriaxone. 2. Aspirin. 3. Heparin. 4. Atorvastatin. 5. Primidone. 6. Tylenol. 7. Folic acid. 8. Finasteride. Assessment And Plan: 1. Acute kidney injury secondary to toxic ATN, poor perfusion, ATN, superimposed with nonmechanical obstructive uropathy secondary to pain medication, on the recovery side. Ultrasound did not show significant postvoid. We will continue finasteride and we will monitor. 2. Chronic kidney disease, back to baseline, stage 3. We will continue to monitor. 3. Hematuria secondary to urinary tract infection, recovered. Repeated UA was negative. 4. Urinary tract infection. Continue current treatment. Repeated UA has been cleared. 5. Nonmechanical obstructive uropathy secondary to pain medication. Continue finasteride. Time spent examining the patient [id number], reviewing the data, lab and radiology, discussing the case with the patient , discussing the case with the produce service team member including nursing staff on the floor, placing order, discussing the case with the hospitalist more than 35 minutes. CHARO Voice ID: [id number] Report ID: [id number] CHAKA
[2022-09-29] MEDS: PRIMIDONE 50 MG TAB PO SCH (12:39)
[2022-09-29] MEDS: FINASTERIDE 5 MG TAB PO SCH (12:39)
[2022-09-29] MEDS: ATORVASTATIN 20 MG TAB PO SCH (19:50)
[2022-09-29] MEDS: MIRTAZAPINE 15 MG TAB PO SCH (19:51)
[2022-09-30] MEDS: ASPIRIN EC 81 MG TAB PO SCH (08:05)
[2022-09-30] MEDS: POLYETHYL GLY 3350 17 GM/DOSE PO PRN (08:05)
[2022-09-30] MEDS: FOLIC ACID 1 MG TABLET PO SCH (08:05)
[2022-09-30] MEDS: FINASTERIDE 5 MG TAB PO SCH (08:06)
[2022-09-30] MEDS: PRIMIDONE 50 MG TAB PO SCH (08:06)
[2022-09-30] MEDS: CEFTRIAXONE 1,000 MG in NA CHLORIDE 0.9% 50 ML IVPB SCH (08:07)
[2022-09-30] MEDS: LIDOCAINE 4% PATCH TOP SCH (08:08)
--- NOTE | 2022-09-30 10:46 | PN ---
Date of Progress Note: 09/30/2022 Subjective: The patient was admitted with acute kidney injury, UTI after fall. The patient had nonmechanical, obstructive uropathy secondary to pain medication. The patient's kidney function has been improved, back to his baseline. The patient feeling better. The patient waiting for placement. Physical Examination: Vital Signs: Blood pressure 111/54, pulse of 59, afebrile. The patient has been voiding in a diaper. Chest: Clear to auscultation. Heart: S1, S2. Regular. Abdomen: Soft, nontender. Extremity: No edema. Neurologic: Alert. No focality. Laboratory Data: Hemoglobin 11.8. Sodium 136, potassium 4, bicarb 25, BUN 26, creatinine 1.4, GFR of 45, calcium 8.7. This is baseline of creatinine 1.5 and GFR around 45 that as of lab on the . Current Medications: The patient on include; 1. Aspirin. 2. Ceftriaxone. 3. Atorvastatin. 4. Primidone. 5. Folic acid. 6. Finasteride. Assessment And Plan: 1. Acute kidney injury secondary to toxic ATN, poor perfusion ATN, superimposed with nonmechanical obstructive uropathy secondary to pain medication, recovered, back to his baseline normal volume. I am going to continue current treatment and we will monitor. We will repeat the lab for tomorrow. 2. 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 3. Hematuria secondary to urinary tract infection, recovered, resolved. 4. Urinary tract infection secondary to E coli. The patient on ceftriaxone, okay to switch to oral Augmentin or quinolone as needed for discharge planning, total of treatment of 2 weeks. The patient finished 8 days so far. 5. Nonmechanical obstructive uropathy. Continue current medication of finasteride. The patient cleared from the Renal standpoint for discharge planning to follow up in the office in 2-3 weeks. Time spent examining the patient [id number], reviewing the data, lab and radiology, discussing the case with the patient , discussing the case with the marketing team lead including nursing staff on the floor, placing order, discussing the case with the hospitalist more than 35 minutes. CHARO Voice ID: [id number] Report ID: [id number] [facility]
[2022-09-30] MEDS: ACETAMINOPHEN 325 MG TABLET PO PRN (16:49)
--- NOTE | 2022-09-30 19:36 | P.PN ---
Subjective Date of Service: 09/30/22 Primary Care Provider: Dr. Woods Chief Complaint: Fall No acute events overnight. He denies any concerns this morning. He denies any chest pain, palpitations, or shortness of breath. [id number] completed yesterday denied inpatient rehab. He and his daughter will make a decision today regarding SNF vs HH and will let us know their decision. Review of Systems 10-point ROS is otherwise unremarkable General: Weakness (generalized) Physical Examination - Vital Signs Temperature: 97.7 F Blood Pressure: 134/67 Pulse: 63 Respirations: 16 Pulse Ox (%): 97 Assessment And Plan - Plan - Physical Exam General: Alert, In no apparent distress, Oriented x3 HEENT: Atraumatic, Mucous membr. moist/pink, Sclerae nonicteric Neck: JVD not distended Respiratory: Clear to auscultation bilaterally, Normal air movement Cardiovascular: No edema, Regular rate/rhythm, No murmurs Gastrointestinal: Normal bowel sounds, Soft, Non-distended, No tenderness Musculoskeletal: No clubbing Integumentary: No rashes Neurological: Normal speech, Normal tone, Cranial nerves 3-12 intact, Normal affect # Generalized Weakness complicated by Ground-Level Fall in Recent Cerebrovascular Accident - Evaluation thus far: - Troponin = 14.6 - EKG = possible accelerated junctional rhythm - CT head = "no acute intracranial abnormality. Subacute left centrum semiovale infarct is similar." - Right hip x-ray = "no right hip fracture or dislocation identified. The right superior and inferior pubic ramus difficult to adequately evaluate due to positioning and overlying bowel contents. Mild right acetabular degenerative changes." - Right knee x-ray = "no acute fracture. No malalignment. Severe patellofemoral compartment degenerative changes. Mild to moderate medial dat rtment narrowing and mild lateral compartment narrowing. Chondrocalcinosis. Small nonspecific knee effusion." - MRI brain = "subacute left centrum semiovale infarct is similar in size. No new infarct identified. No acute intracranial abnormality otherwise." - Management plan: - Consulted Neurology - recommendations appreciated - Consulted Cardiology - recommendations appreciated - Continue home aspirin, folic acid, atorvastatin - Clopidogrel was discontinued by PCP due to hematuria - Consulted PT/OT - May require placement appreciate CM assistance - Fall precautions # Lindsay-Sensitive Escherichia Coli Urinary Tract Infection - Completed 7-day course of ceftriaxone # KDIGO Stage I Acute Kidney Injury on Chronic Kidney Disease Stage III - resolved - Evaluation thus far: - Creatinine = 1.97 -> 1.66 -> 1.72 -> 1.49 (baseline creatinine ~1.4-1.5) - Urinalysis = trace ketones, 2+ blood, 2+ nitrite, 500 leukocyte esterase, >50 RBCs, >50 WBCs, > 50 bacteria, 1+ protein - Management plan: - Nephrology consulted recommendations appreciated - Monitor creatinine and urine output - Renally dose medications # Gross Hematuria - Urology was consulted and he was evaluated by Dr. Waddell - recommendations appreciated # Chronic Back Pain s/p Surgery # L2 Compression Fraction - CT lumbar spine = "no lumbar spine fracture identified. Remote L2 compression fracture. Postsurgical changes from recent L4 decompression without apparent complication." - Continue home lidocaine patch # Essential Tremors - Neurology consulted - recommendations appreciated - Continue home primidone # Benign Prostatic Hyperplasia - Continue home finasteride 09/28/2022: Pending insurance authorization for inpatient rehab. Appreciate CM assistance. 09/29/2022: Pending insurance authorization for inpatient rehab. Message left for [id number], awaiting call back. Appreciate CM assistance. 09/30/2022: [id number] completed yesterday denied inpatient rehab. He and his daughter will make a decision today regarding SNF vs HH and will let us know their decision. Arturo Culver M.D.
[2022-09-30] MEDS: ATORVASTATIN 20 MG TAB PO SCH (20:38)
[2022-09-30] MEDS: MIRTAZAPINE 15 MG TAB PO SCH (20:38)
[2022-10-01 06:38] LABS: Albumin 2.7 g/dL (3.4-5.0); Phosphorus 3.7 mg/dL (2.5-4.9)
--- NOTE | 2022-10-01 08:56 | P.DS ---
Admission Date: 09/25/22 Discharge Date: 10/01/22 Primary Care Provider: Dr. Woods Disposition: DC HOME/HOME HEALTH CARE Discharge Condition: GOOD Reason for Admission: Fall Consultations: 1. Nephrology 2. Urology 3. Cardiology Hospital Course: DIAGNOSES: # Generalized Weakness complicated by Ground-Level Fall in Recent Cerebrovascular Accident # Toro-Sensitive Escherichia Coli Urinary Tract Infection # KDIGO Stage I Acute Kidney Injury on Chronic Kidney Disease Stage III - resolved # Gross Hematuria - resolved # Chronic Back Pain s/p Surgery # L2 Compression Fraction # Essential Tremors # Benign Prostatic Hyperplasia HOSPITAL COURSE: Mr. 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 He was admitted to the Medicine service. Upon further evaluation, his EKG revealed an accelerated junctional rhythm. His CT head revealed, "no acute intracranial abnormality. Subacute left centrum semiovale infarct is similar." His right hip x-ray revealed, "no right hip fracture or dislocation identified. The right superior and inferior pubic ramus difficult to adequately evaluate due to positioning and overlying bowel contents. Mild right acetabular degenerative changes." His right knee x-ray revealed, "no acute fracture. No malalignment. Severe patellofemoral compartment degenerative changes. Mild to moderate medial compartment narrowing and mild lateral compartment narrowing. Chondrocalcinosis. Small nonspecific knee effusion." His MRI brain revealed, "subacute left centrum semiovale infarct is similar in size. No new infarct identified. No acute intracranial abnormality otherwise." Cardiology was consulted for his abnormal EKG and he was evaluated by Dr. Roach. He recommended no additional work-up. Further evaluation would reveal a toro-sensitive Escherichia Coli urinary tract infection as well as an acute kidney injury. He was started on IV ceftriaxone and transitioned to cefdinir to complete a 14-day course of antibiotics. Nephrology was consulted and he was evaluated by Dr. Eckert. Over the course of his hospitalization, his renal function improved. He has cleared him for discharge with outpatient follow-up. Urology was consulted due to an episode of gross hematuria, which has now resolved. He was evaluated by Dr. Waddell. He was advised to schedule outpatient follow-up to exclude an underlying urologic malignancy. These recommendations were discussed with him and his daughter, who verbalized understanding and agreed to make this appointment. Physical therapy was consulted and it was recommended that he receive continued PT services. Inpatient rehab was requested, but denied by insurance. We discussed other options including SNF vs home with home health. He and his daughter have chosen to be discharged with [facility] home health services. With the assistance of case management, this was arranged. On 10/01/2022, he was seen on morning rounds and deemed medically stable for discharge. He was discharged with instructions to schedule follow-up appointments with his PCP (Dr. Woods), with Urology (Dr. Waddell), with Nephrology (Dr. Eckert), and with Cardiology (Dr. Roach). He was provided a prescription for cefdinir. He and his daughter were given the opportunity to ask questions and reported no further questions. Furthermore, all questions were answered to the best of my ability. A copy of this discharge summary will be sent to the above providers to facilitate continuity of care. Today, I personally spent 25 minutes on his case, of which greater than 50% of the time was spent in patient education, counseling, and coordination of care as described above. - Physical Exam General: Alert, In no apparent distress, Oriented x3 HEENT: Atraumatic, Mucous membr. moist/pink, Sclerae nonicteric Neck: JVD not distended Respiratory: Clear to auscultation bilaterally, Normal air movement Cardiovascular: No edema, Regular rate/rhythm, No murmurs Gastrointestinal: Normal bowel sounds, Soft, Non-distended, No tenderness Musculoskeletal: No clubbing Integumentary: No rashes Neurological: Normal speech, Normal tone, Cranial nerves 3-12 intact, Normal affect, Other (5/5 strength in BUE, LLE. 4/5 strength in RLE.) Vital Signs/Physical Exam: Temp Pulse Resp BP Pulse Ox 96.2 F L 58 18 137/64 96 10/01/22 04:00 10/01/22 04:00 10/01/22 04:00 10/01/22 04:00 10/01/22 04:00 Laboratory Data at Discharge: WBC 8.20 thou/uL (4.3-10.9) 09/26/22 17:32 Hgb 11.8 g/dL (13.6-17.9) L 09/26/22 17:32 Hct 35.1 % (39.6-49.0) L 09/26/22 17:32 Plt Count 195 thou/uL (152-406) 09/26/22 17:32 PT 10.9 SECONDS (9.5-12.5) 09/23/22 08:05 INR 0.99 09/23/22 08:05 APTT 23.5 SECONDS (24.3-36.9) L 09/23/22 08:05 Sodium 136 mEq/L (136-145) 10/01/22 05:57 Potassium 4.0 mEq/L (3.5-5.1) 10/01/22 05:57 BUN 34 mg/dL (7-18) H 10/01/22 05:57 Creatinine 1.60 mg/dL (0.70-1.30) H 10/01/22 05:57 Glucose 100 mg/dL (74-106) 10/01/22 05:57 Phosphorus 3.7 mg/dL (2.5-4.9) 10/01/22 05:57 Magnesium 2.1 mg/dL (1.6-2.4) 09/24/22 05:44 Total Bilirubin 0.7 mg/dL (0.2-1.0) 09/23/22 08:05 AST 26 U/L (15-37) 09/23/22 08:05 ALT 24 U/L (16-61) 09/23/22 08:05 Alkaline Phosphatase 60 U/L (45-117) 09/23/22 08:05 Home Medications: RX: Finasteride [Proscar*] 5 mg PO DAILY 08/12/22 RX: Glucos Sul 2Kcl/MSM/Chond/C/Mn [Glucosamine Chondroitin Cap] 1 each PO DAILY 08/12/22 RX: Mirtazapine [Remeron*] 15 mg PO BEDTIME 08/12/22 RX: Multivitamin 1 each PO DAILY 08/12/22 RX: Polyethylene Glycol 3350 [Miralax] 17 gm PO DAILY 08/12/22 RX: Primidone [Mysoline *] 25 mg PO DAILY 08/12/22 RX: Tramadol HCl [Ultram] 50 mg PO Q6H PRN 08/12/22 RX: Vit C/E/Zn/Coppr/Lutein/Zeaxan [Preservision Areds 2 Softgel] 1 each PO DAILY 08/12/22 RX: Aspirin [Aspirin EC 81 MG] 81 mg PO DAILY #30 tab 08/24/22 RX: Atorvastatin Calcium [Lipitor*] 20 mg PO BEDTIME tab 08/24/22 RX: Folic Acid 1 mg PO DAILY #30 tab 08/24/22 RX: Lidocaine 4% Patch [Lidoderm 5% Patch*] 1 patch TOP DAILY pat 08/24/22 RX: Cefdinir [Cefdinir*] 300 mg PO BID 5 Days #10 cap 10/01/22 New Medications: RX: Cefdinir [Cefdinir*] 300 mg PO BID 5 Days #10 cap Physician Discharge Instructions: 1. Please call and schedule a follow-up appointment with your PCP (Dr. Woods) in 3-5 days 2. Please call and schedule a follow-up appointment with Neurology (Dr. Dewitt) in 5-7 days 3. Please call and schedule a follow-up appointment with Urology (Dr. Waddell) in 5-7 days - Please have him follow-up on the blood in your urine. He will need to exclude a bladder/kidney cancer as the cause of the bleeding 4. Please call and schedule a follow-up appointment with Nephrology (Dr. Eckert) in 3-5 days - Please have him repeat your kidney blood work at this appointment 5. Please call and schedule a follow-up appointment with Cardiology (Dr. Roach) in 5-7 days5 Diet: AHA Activity: Fall precautions Followup: Pedro Eckert MD [ACTIVE - CAN ADMIT] - Matt Dewitt MD [ASSOCIATE-ACTIVE - CAN ADMIT] - Jarred Woods DO [ACTIVE - CAN ADMIT] - Gabino Waddell [ACTIVE - CAN ADMIT] - Patrick Roach MD [ACTIVE - CAN ADMIT] - Time spent managing pt's care (in minutes): 25
[2022-10-01] MEDS ORDERED: CEFTRIAXONE 1,000 MG in NA CHLORIDE 0.9% 50 ML IVPB SCH (09:15)
[2022-10-01] MEDS: FOLIC ACID 1 MG TABLET PO SCH (09:46)
[2022-10-01] MEDS: LIDOCAINE 4% PATCH TOP SCH (09:46)
[2022-10-01] MEDS: ASPIRIN EC 81 MG TAB PO SCH (09:46)
[2022-10-01] MEDS: PRIMIDONE 50 MG TAB PO SCH (09:46)
[2022-10-01] MEDS: FINASTERIDE 5 MG TAB PO SCH (09:46)
[2022-10-01 11:59] VITALS: O2SAT 96
[2022-10-01 15:00] VITALS: BP 139/70; TEMP 97.3
== END 2022-10-01 13:30 | disposition home health service (06) | DRG 689 ==
LOC: ER 07:33 → ERHOLD 10:57 → 2ND 13:25 → OBSVTOIN 09-25 15:17
PROVIDERS: ADMIT Internal Medicine; ATTEND Internal Medicine
DX: N30.01 Acute cystitis with hematuria (principal); N17.0 Acute kidney failure with tubular necrosis; E87.1 Hypo-osmolality and hyponatremia; N13.8 Other obstructive and reflux uropathy; N40.1 Benign prostatic hyperplasia with lower urinary tract symptoms; E86.0 Dehydration; G89.29 Other chronic pain; M54.9 Dorsalgia, unspecified; N18.30 Chronic kidney disease, stage 3 unspecified; D63.1 Anemia in chronic kidney disease; E78.5 Hyperlipidemia, unspecified; F03.90 Unspecified dementia, unspecified severity, without behavioral disturbance, psychotic disturbance, mood disturbance, and anxiety; M25.461 Effusion, right knee; M11.20 Other chondrocalcinosis, unspecified site; G25.0 Essential tremor; M48.56XD Collapsed vertebra, not elsewhere classified, lumbar region, subsequent encounter for fracture with routine healing; I69.398 Other sequelae of cerebral infarction; T40.605A Adverse effect of unspecified narcotics, initial encounter; B96.20 Unspecified Escherichia coli [E. coli] as the cause of diseases classified elsewhere; Z88.8 Allergy status to other drugs, medicaments and biological substances; Z79.82 Long term (current) use of aspirin; Z90.49 Acquired absence of other specified parts of digestive tract; Z91.040 Latex allergy status; Z79.899 Other long term (current) drug therapy; W18.30XA Fall on same level, unspecified, initial encounter; Y93.9 Activity, unspecified; Y92.9 Unspecified place or not applicable
CPT/HCPCS: 36415; 70450; 70551; 71045; 72131; 74176; 80048; 80069; 80076; 81001; 81003; 82306; 82550; 82570; 83605; 83735; 83880; 83935; 83970; 84100; 84132; 84156; 84300; 84484; 85025; 85610; 85730; 87040; 87077; 87086; 87088; 87186; 93005; 97110; 97116; 97161; 97165; 97530; 99284; G0378; J0696; J1644; J2001; J7030; J7040

== ENCOUNTER 2022-12-04 18:31 | Observation (INO) | payer OTHER ==
--- OUTSIDE RECORDS SUMMARY | 2022-12-04 18:34 | XMS REPORT | Continuity of Care Document ---
:1935 Author Organization [facility] Address [address] [facility] [address] [place] [address] Care Team Providers Name Role Phone Jarred Woods Attending Clinician Unavailable Karen Webster Attending Clinician Unavailable Payers Payer Name Policy Type Policy Number Effective Date Expiration Date S trino [employer]ET[employer] MEDICARE C1 [id number] Common [facility] MEDICARE C1 [id number] 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 - [facility] d [facility] 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 [facility] 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 [facility] Orthostati Orthostati Problem C ommon c c Spirit hypotensio hypotensio - CHI n n [facility] Hearing Hearing Problem Common loss loss [facility] Anemia Anemia Problem Common [facility] Hyperlipid Hyperlipid Problem C omhussein emia emia [facility] Osteoarthr Osteoarthr Problem C radhika valente itis Spirit involving - [facility]I multiple [facility] joints [facility] both sides Medica l [facility] body Center [id number] Chronic Problem Commo n kidney Spirit disease, - CHI unspecifie St d CKD [facility] Renal Renal Problem Common insufficie insufficie Sp erick ncy ncy [facility] [id number] 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, - CHI unspecifie St d hearing [facility] loss type Medical Center Cataract Cataract Problem Commo n [facility] Lower Benign Problem Common urinary prostatic [facility] tract hypertroph - CHI symptoms y with St due to [facility] urinary Medical prostatic tract Center hypertroph symptoms y (LUTS) [id number] Abnormal Problem Comm on renal Spirit function - [facility]I test [facility] [id number] Benign Problem Common prostatic Spirit hyperplasi - [facility]I a, St unspecifie [facility] d whether Medical [facility] urinary tract symptoms present Allergies, Adverse Reactions, Alerts Allergy Allergy Status Severity Reaction(s) Onset Inactive Treating Comm ents Source Name Type Date Date Clinician ezetimib ezetimib Active Unknown Commo n e e [facility] Social History Social Habit Start Date Stop Date Quantity Comments Source History of Tobacco Use Co mmon [facility] Sex Assigned At Com [facility] Smoking Status Start Date Stop Date Source Never Smoker [facility] Former Smoker 2021-06-26 00:00:00 2021-06-26 00:00:00 Common S pirit [facility] Medications Ordered Filled Start Stop Current [...] 600+D 600+D Millender with a Spirit meal [facility] Multi For Multi For Yes not Comm on Him 50+ Him 50+ Millender defined S [facility] Aspir-81 Aspir-81 Yes 1 tablet Co mmon [facility] Lipitor Lipitor Yes 1 tablet Comm on Millender [facility] Finasteride Finasteride Yes 1 tablet Common [facility] Chondroitin Chondroitin Yes not Common Sulfate Sulfate Millender defined S [facility] Inderal [place] Inderal [place] Yes 1 capsule [facility] Gabapentin Gabapentin Yes 1 capsule Common [facility] Clonazepam Clonazepam Yes 1 tablet Common Millender at bedtime Spir it [facility] Aspir-81 81 Aspir-81 81 No 1{table [...] FluAD 2021-01-22 Completed [facility] 13:08:00 - [facility] FluAD FluAD 2021-01-22 Completed [facility] 13:08:00 - [facility] FluAD FluAD 2021-01-22 Completed [facility] 13:08:00 - [facility] FluAD FluAD 2021-01-22 Completed [facility] 13:08:00 - [facility] FluAD FluAD 2021-01-22 Completed [facility] 13:08:00 - [facility] FluAD FluAD 2021-01-22 Completed [facility] 13:08:00 - [facility] FluAD FluAD 2021-01-22 Completed [facility] 13:08:00 - [facility] FluAD FluAD 2021-01-22 Completed [facility] 13:08:00 - [facility] FluAD FluAD 2021-01-22 Completed [facility] 13:08:00 - [facility] FLUZONE HIGH DOSE FLUZONE HIGH DOSE 2020-01-08 Completed [facility] OVER 65 OVER 65 16:10:00 - [facility] FLUZONE HIGH DOSE FLUZONE HIGH DOSE 2020-01-08 Completed [facility] OVER 65 OVER 65 16:10:00 - [facility] FLUZONE HIGH DOSE FLUZONE HIGH DOSE 2020-01-08 Completed [facility] OVER 65 OVER 65 16:10:00 - [facility] FLUZONE HIGH DOSE FLUZONE HIGH DOSE 2020-01-08 Completed [facility] OVER 65 OVER 65 16:10:00 - [facility] FLUZONE HIGH DOSE FLUZONE HIGH DOSE 2020-01-08 Completed [facility] OVER 65 OVER 65 16:10:00 - [facility] FLUZONE HIGH DOSE FLUZONE HIGH DOSE 2020-01-08 Completed [facility] OVER 65 OVER 65 16:10:00 - [facility] FLUZONE HIGH DOSE FLUZONE HIGH DOSE 2020-01-08 Completed [facility] OVER 65 OVER 65 16:10:00 - [facility] FLUZONE HIGH DOSE FLUZONE HIGH DOSE 2020-01-08 Completed [facility] OVER 65 OVER 65 16:10:00 - [facility] FLUZONE HIGH DOSE FLUZONE HIGH DOSE 2020-01-08 Completed [facility] OVER 65 OVER 65 16:10:00 - [facility] FLUZONE HIGH DOSE FLUZONE HIGH DOSE 2020-01-08 Completed [facility] OVER 65 OVER 65 16:10:00 - [facility] FLUZONE HIGH DOSE FLUZONE HIGH DOSE 2020-01-08 Completed [facility] OVER 65 OVER 65 16:10:00 - [facility] FLUZONE HIGH DOSE FLUZONE HIGH DOSE 2020-01-08 Completed [facility] OVER 65 OVER 65 16:10:00 - [facility] Vital Signs Vital Name Observation Time Observation Value Comments Source height 2022-01-26 15:50:00 71.5 [in_i] [facility] weight 2022-01-26 15:50:00 195.2 [lb_av] Common [facility] temperature 2022-01-26 15:50:00 97.0 [degF] [facility] bmi 2022-01-26 15:50:00 26.84 kg/m2 [facility] oximetry 2022-01-26 15:50:00 96 % [facility] respiratory rate 2022-01-26 15:50:00 17 /min Comm on Spirit - [facility] blood pressure 2022-01-26 15:50:00 125 mm[Hg] [facility] - systolic [facility] blood pressure 2022-01-26 15:50:00 68 mm[Hg] [facility] - diastolic [facility] height 2021-12-01 07:40:00 71.5 [in_i] Common S pirit - [facility] weight 2021-12-01 07:40:00 194 [lb_av] Common S pirit - [facility] temperature 2021-12-01 07:40:00 98 [degF] Common S pirit - [facility] bmi 2021-12-01 07:40:00 26.68 kg/m2 Common S pirit - [facility] blood pressure 2021-12-01 07:40:00 122 mm[Hg] Common [facility] - systolic [facility] blood pressure 2021-12-01 07:40:00 60 mm[Hg] Common [facility] - diastolic [facility] height 2021-11-03 09:20:00 71.5 [in_i] Common S pirit [facility] weight 2021-11-03 09:20:00 194.7 [lb_av] Common [facility] temperature 2021-11-03 09:20:00 97.7 [degF] Common S pirit [facility] bmi 2021-11-03 09:20:00 26.77 kg/m2 [facility] S pirit [facility] oximetry 2021-11-03 09:20:00 91 % Common S pirit [facility] respiratory rate 2021-11-03 09:20:00 16 /min Comm on [facility] blood pressure 2021-11-03 09:20:00 124 mm[Hg] Common [facility] - systolic [facility] blood pressure 2021-11-03 09:20:00 59 mm[Hg] [facility] - diastolic [facility] height 2021-06-30 13:10:00 71.5 [in_i] Common S pirit - [facility] weight 2021-06-30 13:10:00 189.9 [lb_av] Common [facility] temperature 2021-06-30 13:10:00 97.2 [degF] Common [facility] bmi 2021-06-30 13:10:00 26.11 kg/m2 Common [facility] oximetry 2021-06-30 13:10:00 98 % Common [facility] respiratory rate 2021-06-30 13:10:00 17 /min Comm on [facility] blood pressure 2021-06-30 13:10:00 126 mm[Hg] Common [facility] systolic [facility] blood pressure 2021-06-30 13:10:00 61 mm[Hg] [facility] diastolic [facility] height 2021-03-31 13:00:00 71.5 [in_i] [facility] weight 2021-03-31 13:00:00 183.9 [lb_av] [facility] temperature 2021-03-31 13:00:00 97.3 [degF] Common [facility] bmi 2021-03-31 13:00:00 25.29 kg/m2 [facility] oximetry 2021-03-31 13:00:00 97 % [facility] respiratory rate 2021-03-31 13:00:00 17 /min Comm on [facility] blood pressure 2021-03-31 13:00:00 120 mm[Hg] Common [facility] systolic [facility] blood pressure 2021-03-31 13:00:00 61 mm[Hg] Common [facility] diastolic [facility] Procedures This patient has no known procedures. Encounters Start End Encounter Admission Attending Care Care Encounter Source Date/Time Date/Time Type Type Clinicians Facility Department ID 2022-11-29 Outpatient [facility] [id number] Common 16:34:00 [facility] [id number] [facility] 2022-09-07 Outpatient Woods, STLMLC STLMLC [id number] Common 13:59:00 Jarred [id number] [facility] 2022-08-09 Outpatient Woods, STLMLC STLMLC [id number] Common 08:27:00 Jarred [id number] [facility] 2022-01-25 Outpatient Woods, STLMLC STLMLC [id number] Common 14:59:00 Jarred [facility] 2021-12-15 Outpatient Woods, STLMLC STLMLC [id number] Common 14:06:00 Jarred [facility] 2021-06-30 Outpatient Woods, STLMLC STLMLC [id number] Common 13:05:00 Jarred [facility] 2021-06-29 Outpatient Woods, STLMLC STLMLC [id number] Common 09:17:00 Jarred [facility] 2021-05-20 Outpatient Woods, STLMLC STLMLC [id number] Common 14:00:18 Jarred [id number] [facility] 2021-05-20 Outpatient Woods, STLMLC STLMLC [id number] Common 13:58:47 Jarred [id number] [facility] 2021-05-20 Outpatient Woods, STLMLC STLMLC [id number] Common 13:35:19 Jarred 54769 [facility] 2021-05-20 Outpatient Woods, STLMLC STLMLC [id number] Common 13:11:28 Jarred 31633 [facility] 2021-05-20 Outpatient Woods, STLMLC STLMLC [id number] Common 12:31:25 Jarred 98781 [facility] 2021-05-20 Outpatient Woods, STLMLC STLMLC [id number] Common 12:31:02 Jarred 51502 [facility] 2021-05-20 Outpatient Woods, STLMLC STLMLC [id number] Common 12:21:18 Jarred 43132 [facility] 2021-05-20 Outpatient Millender, STLMLC STLMLC [id number] Common 11:08:37 [id number] Spirit - CHI [facility] 2021-05-20 Outpatient Millender, STLMLC STLMLC [id number] Common 11:05:50 [id number] Spirit - [facility] 2021-05-20 Outpatient Millender, STLMLC STLMLC [id number] Common 11:03:28 [id number] [facility] 2021-05-20 Outpatient Millender, STLMLC STLMLC [id number] Common 11:02:51 [id number] [facility] 2022-05-26 2022-05-26 (TEL) STLMLC STLMLC [id number] Co mmon 00:00:00 00:00:00 Spirit - [facility] 2022-01-26 2022-01-26 OFFICE STLMLC STLMLC [id number] Co mmon 00:00:00 00:00:00 VISIT Spirit ESTAB PT - CHI LEVEL 4 [facility] 2021-12-01 2021-12-01 OFFICE STLMLC STLMLC [id number] Co mmon 00:00:00 00:00:00 VISIT Spirit ESTAB PT - CHI LEVEL 4 [facility] 2021-11-03 2021-11-03 OFFICE STLMLC STLMLC [id number] Co mmon 00:00:00 00:00:00 VISIT Spirit ESTAB PT - CHI LEVEL 4 [facility] 2021-11-03 2021-11-03 SUB ANNUAL STLMLC STLMLC [id number] Common 00:00:00 00:00:00 MCR Spirit WELLNESS - CHI VISIT [facility] 2021-09-02 2021-09-02 (TEL) STLMLC STLMLC [id number] Co mmon 00:00:00 00:00:00 Spirit - [facility] 2021-06-30 2021-06-30 OFFICE STLMLC STLMLC [id number] Co mmon 00:00:00 00:00:00 VISIT Spirit ESTAB PT - CHI LEVEL 4 [facility] 2021-03-31 2021-03-31 OFFICE STLMLC STLMLC [id number] Co mmon 00:00:00 00:00:00 VISIT [facility] LEVEL 4 [facility] 2021-02-04 2021-02-04 (TEL) STLMLC STLMLC [id number] Co mmon 00:00:00 00:00:00 [facility] 2021-01-30 2021-01-30 (TEL) STLMLC STLMLC [id number] Co mmon 00:00:00 00:00:00 [facility] 2020-12-01 2020-12-01 (TEL) STLMLC STLMLC [id number] Co mmon 00:00:00 00:00:00 [facility] 2020-11-28 2020-11-28 (TEL) STLMLC STLMLC [id number] Co mmon 00:00:00 00:00:00 [facility] 2020-09-30 2020-09-30 Outpatient STLMLC STLMLC [id number] Common 00:00:00 00:00:00 [facility] 2020-09-30 2020-09-30 Outpatient STLMLC STLMLC [id number] Common 00:00:00 00:00:00 [facility] 2020-08-22 2020-08-22 Outpatient STLMLC STLMLC [id number] Common 00:00:00 00:00:00 [facility] 2020-06-14 2020-06-14 Outpatient STLMLC STLMLC [id number] Common 00:00:00 00:00:00 [facility] 2020-01-08 2020-01-08 Outpatient STLMLC STLMLC [id number] Common 00:00:00 00:00:00 [facility] 2019-09-25 2019-09-25 [facility] [id number] Common 10:40:00 10:40:00 [facility] 2019-06-13 2019-06-13 [facility] [id number] Common 09:57:00 09:57:00 [facility] 2019-06-12 2019-06-12 [facility] [id number] Common 15:45:00 15:45:[address] [facility] [address] [facility] 2018-11-21 2018-11-21 [facility] [id number] Common 08:45:00 08:45:[address] [facility] [address] [facility] 2018-08-22 2018-08-22 [facility] [id number] Common 10:00:00 10:00:[address] [facility] [address] [facility] 2017-08-23 2017-08-23 [facility] [id number] Common 15:00:00 15:00:[address] [facility] [address] [facility] Results This patient has no known results.
[2022-12-04 19:40] LABS: Absolute Lymphocytes (CBC) 0.9 K/uL (0.7-4.9); Hematocrit 37.2 % (39.6-49.0); Lymphocytes % 6.7 % (15.3-44.8); MCV 98.8 fL (80-100); MPV 6.9 fL (7.6-11.3); Platelets 178 thou/uL (152-406); RBC Red Blood Cell Count 3.76 M/uL (4.33-5.43)
[2022-12-04] MEDS ORDERED: MORPHINE 4 MG/ML SYR ONE (19:45)
[2022-12-04] MEDS ORDERED: ONDANSETRON 4 MG/2 ML VIAL ONE (19:45)
[2022-12-04] MEDS ORDERED: NA CHLORIDE 0.9% 1,000 ML ONE (19:46)
[2022-12-04 19:55] LABS: Albumin 3.6 g/dL (3.4-5.0); Bilirubin Direct 0.2 mg/dL (0-0.2); Bilirubin Indirect, Calculated 0.3 mg/dL (0.2-0.8); Bilirubin Total 0.5 mg/dL (0.2-1.0); Magnesium 2.1 mg/dL (1.6-2.4); Potassium 4.5 mEq/L (3.5-5.1); Protein, Total 7.7 g/dL (6.4-8.2); Troponin High Sensitivity 14.4 pg/mL (<58.9)
[2022-12-04 21:58] LABS: Specific Gravity 1.018 (1.005-1.030); Urine Bacteria <20 /HPF (<20); Urine Bilirubin NEGATIVE (Negative); Urine Blood Negative (Negative); Urine Clarity Clear (Clear); Urine Color Yellow (Yellow); Urine Glucose NEGATIVE (Negative); Urine Mucus Slight /HPF (None Seen); Urine Protein TRACE (Negative); Urine RBC <5 /HPF (None Seen); Urine Urobilinogen Normal (Normal)
--- NOTE | 2022-12-04 22:37 | ER ---
Nurse's Notes [facility] Mahamed Name: Adam Spencer Age: 86 yrs Sex: Male : 1935 Arrival Date: 12/04/2022 Time: 18:31 Bed 2 Private MD: Diagnosis: Weakness;Dehydration Presentation: 12/04 18:36 Chief complaint: EMS states: CONSTIPATION AT HOME x5 DAYS, DISIMPACTED BY FAMILY, NOW bp GENERALLY WEAK. Coronavirus screen: At this time, the client does not indicate any symptoms associated with coronavirus-19. Ebola Screen: No symptoms or risks identified at this time. Initial Sepsis Screen: Does the patient meet any 2 criteria? No. Patient's initial sepsis screen is negative. Does the patient have a suspected source of infection? No. Patient's initial sepsis screen is negative. Risk Assessment: Do you want to hurt yourself or someone else? Patient reports no desire to harm self or others. Onset of symptoms is unknown. Care prior to arrival: Glucose check: 163. 18:36 Method Of Arrival: EMS: [facility] bp 18:36 Acuity: AISHA 3 bp Triage Assessment: 18:38 General: Appears in no apparent distress. Behavior is calm, cooperative, appropriate bp for age. Pain: Denies pain. EENT: No deficits noted. Neuro: Level of Consciousness is awake, alert, obeys commands, Oriented to Appropriate for age Reports weakness. Cardiovascular: No deficits noted. Respiratory: No deficits noted. GI: Reports constipation. : No signs and/or symptoms were reported regarding the genitourinary system. Derm: No deficits noted. Musculoskeletal: No deficits noted. Historical: - Allergies: 18:38 Amitriptyline; bp 18:38 ezetimibe; bp 18:38 Lovastatin; bp 18:38 Simvastatin; bp - PMHx: 18:38 benign prostate; Cerebrovascular accident; bp - Immunization history:: Adult Immunizations up to date. - Social history:: Smoking status: Patient denies any tobacco usage or history of. Screenin:39 [facility] ED Fall Risk Assessment (Adult) History of falling in the last 3 months, bp including since admission No falls in past 3 months (0 pts). Abuse screen: Denies threats or abuse. Denies injuries from another. Nutritional screening: No deficits noted. Tuberculosis screening: No symptoms or risk factors identified. Assessment: 18:39 General: SEE TRIAGE NOTE. bp 23:10 GI: Bowel sounds present X 4 quads. Abd is soft and non tender X 4 quads. rv 23:10 Reassessment: No changes from previously documented assessment. Patient and/or family rv updated on plan of care and expected duration. Pain level reassessed. Patient is alert, oriented x 3, equal unlabored respirations, skin warm/dry/pink. PT UNABLE TO AMBULATE. Vital Signs: 18:36 BP 135 / 80; Pulse 90; Resp 16; Temp 98; Pulse Ox 97% ; bp 23:11 BP 128 / 62; Pulse 83; Resp 18; Pulse Ox 95% on R/A; rv ED Course: 18:36 Patient arrived in ED. bp 18:38 Triage completed. bp 18:39 Arm band placed on. bp 18:39 Patient has correct armband on for positive identification. Bed in low position. Call bp light in reach. Side rails up X2. Adult w/ patient. 18:42 Karley Sher PA-C is PHCP. sb4 18:42 Sinan Montague MD is Attending Physician. sb4 19:30 Inserted saline lock: 20 gauge in left forearm, using aseptic technique. Blood rv collected. 19:31 Wilton Wooten, VERENA is Primary Nurse. rv 20:18 EKG done, by ED staff, reviewed by Karley Sher PA-C. wm 22:36 Jag Rai MD is Hospitalizing Provider. sb4 23:09 No provider procedures requiring assistance completed. Patient admitted, IV remains in rv place. 23:11 Provided Education on: UTI, AMBULATION.. rv 23:17 Julio Pitts is Hospitalizing Provider. sb4 Administered Medications: 19:41 Drug: morphine IVP or IV 4 mg Route: IVP; Infused Over: 4 mins; Site: left forearm; rv 23:10 Follow up: Response: No adverse reaction rv 19:41 Drug: Ondansetron IVP 4 mg Route: IVP; Site: left forearm; rv 23:09 Follow up: Response: No adverse reaction rv 19:41 Drug: NS 0.9% IV 1000 ml Route: IV; Rate: 1 bolus; Site: left forearm; rv 23:09 Follow up: IV Status: Completed infusion; IV Intake: 1000ml rv Medication: 18:39 VIS not applicable for this client. bp Intake: 23:09 IV: 1000ml; Total: 1000ml. rv Outcome: 22:36 Decision to Hospitalize by Provider. sb4 23:11 Admitted to Med/surg accompanied by nurse, via stretcher, room 232. rv 23:11 Condition: stable 23:11 Instructed on the need for admit. 23:20 Patient left the ED. rv Signatures: Casimiro Sam, RN RN bp Wilton Wooten, RN RN rv Lou Lua Sophia, PA-C PA-C sb4
--- NOTE | 2022-12-04 22:37 | EDPHYS ---
Physician Documentation [facility] Name: Adam Spencer Age: 86 yrs Sex: Male : 1935 Arrival Date: 12/04/2022 Time: 18:31 Bed 2 Private MD: ED Physician Sinan Montague HPI: 12/04 19:19 This 86 yrs old Male presents to ER via EMS with complaints of weakness. sb4 19:19 86-year-old male presents via EMS with daughter with concerns of generalized weakness. sb4 Patient states that he had lumbar surgery a few months ago and had a stroke in the hospital with right-sided deficits. He did PT and has mostly recovered. About 2 months ago, he had a fall that was apparently secondary to a complex UTI and resulted in severe knee pain and a 9-day hospital stay. For the past few days, patient has been very constipated and has been back and forth to the bathroom constantly straining without any successful bowel movement. Daughter states that she manually disimpacted him today and was moderately successful. However, now patient is so weak that he can barely stand or walk to the bathroom. Neurologically intact during my assessment, he is only complaining of severe knee and back pain. Historical: - Allergies: 18:38 Amitriptyline; bp 18:38 ezetimibe; bp 18:38 Lovastatin; bp 18:38 Simvastatin; bp - PMHx: 18:38 benign prostate; Cerebrovascular accident; bp - Immunization history:: Adult Immunizations up to date. - Social history:: Smoking status: Patient denies any tobacco usage or history of. ROS: 19:22 Eyes: Negative for injury, pain, redness, and discharge, ENT: Negative for injury, sb4 pain, and discharge, Cardiovascular: Negative for chest pain, palpitations, and edema, Respiratory: Negative for shortness of breath, cough, wheezing, and pleuritic chest pain, Skin: Negative for injury, rash, and discoloration. 19:22 Constitutional: Negative for fever, chills, and weight loss. 19:22 Abdomen/GI: Positive for constipation, Negative for abdominal pain, nausea and vomiting. 19:22 MS/extremity: Positive for right knee pain and lower back pain. 19:22 Neuro: Positive for tremor, weakness, Negative for altered mental status, dizziness, headache, loss of consciousness, seizure activity, syncope. 19:22 All other systems are negative. Exam: 19:22 Head/Face: Normocephalic, atraumatic. Eyes: Extra-ocular motions intact. Periorbital sb4 areas with no swelling, redness, or edema. Cardiovascular: Regular rate and rhythm with a normal S1 and S2. Respiratory: Lungs have equal breath sounds bilaterally, clear to auscultation and percussion. No rales, rhonchi or wheezes noted. No increased work of breathing, no retractions or nasal flaring. Abdomen/GI: Soft, non-tender, no distension. Skin: Warm, dry with normal turgor. Normal color with no rashes, no lesions, and no evidence of cellulitis. MS/ Extremity: Pulses equal, no cyanosis. Neurovascular intact. Full, normal range of motion. Neuro: Awake and alert, GCS 15, oriented to person, place, time, and situation. Cranial nerves II-XII grossly intact. Motor strength 5/5 in all extremities. Sensory grossly intact. Cerebellar exam normal. Normal gait. 19:22 Constitutional: The patient appears alert, awake, in obvious pain, uncomfortable. Vital Signs: 18:36 BP 135 / 80; Pulse 90; Resp 16; Temp 98; Pulse Ox 97% ; bp 23:11 BP 128 / 62; Pulse 83; Resp 18; Pulse Ox 95% on R/A; rv MDM: 18:42 Patient medically screened. sb4 19:25 Differential diagnosis: UTI, dehydration, electrolyte abnormality, constipation, bowel sb4 obstruction. 22:35 Data reviewed: vital signs, nurses notes, lab test result(s), EKG, radiologic studies, sb4 and as a result, I will admit patient. Consideration of Admission/Observation Patient was admitted/placed on observation. Historians other than the Patient: Daughter/Son: daughter. Care significantly affected by the following chronic conditions: Chronic Kidney Disease. Counseling: I had a detailed discussion with the patient and/or guardian regarding: the historical points, exam findings, and any diagnostic results supporting the discharge/admit diagnosis, lab results, the need for further work-up and treatment in the hospital. 12/04 18:55 Order name: Basic Metabolic Panel; Complete Time: 20:00 sb4 12/04 18:55 Order name: CBC with Diff; Complete Time: 20:20 sb4 08 18:55 Order name: LFT's; Complete Time: 20:00 sb4 08 18:55 Order name: Magnesium; Complete Time: 20:00 sb4 12/04 18:55 Order name: NT PRO-BNP; Complete Time: 20:00 sb4 08 18:55 Order name: Troponin HS; Complete Time: 20:00 sb4 12/04 18:55 Order name: Urine W/Microscopic (UAM); Complete Time: 21:59 sb4 12/04 22:13 Order name: SARS RAPID; Complete Time: 22:59 sb4 12/04 23:01 Order name: Urinalysis w/ reflexes EDIL 12/04 18:55 Order name: EKG; Complete Time: 18:56 sb4 12/04 23:01 Order name: Heart Healthy EDIL 12/04 23:01 Order name: Physical Therapy Consult [facility] 08 18:55 Order name: Cardiac monitoring; Complete Time: 19:31 sb4 12/04 18:55 Order name: EKG - Nurse/Tech; Complete Time: 20:18 sb4 12/04 18:55 Order name: IV Saline Lock; Complete Time: 19:31 sb4 12/04 18:55 Order name: Labs collected and sent; Complete Time: 19:31 sb4 12/04 18:55 Order name: O2 Per Protocol; Complete Time: 19:31 sb4 12/04 18:55 Order name: O2 Sat Monitoring; Complete Time: 19:31 sb4 EC:23 Rate is 88 beats/min. Rhythm is regular, Normal Sinus Rhythm with 1st degree heart sb4 block. HI interval is prolonged at 256 msec. QRS interval is normal at 110 msec. QT interval is normal at 376 msec. No Q waves. No ST changes noted. Clinical impression: Normal ECG. Interpreted by me. Reviewed by me. Administered Medications: 19:41 Drug: morphine IVP or IV 4 mg Route: IVP; Infused Over: 4 mins; Site: left forearm; rv 23:10 Follow up: Response: No adverse reaction rv 19:41 Drug: Ondansetron IVP 4 mg Route: IVP; Site: left forearm; rv 23:09 Follow up: Response: No adverse reaction rv 19:41 Drug: NS 0.9% IV 1000 ml Route: IV; Rate: 1 bolus; Site: left forearm; rv 23:09 Follow up: IV Status: Completed infusion; IV Intake: 1000ml rv Disposition: 12/05 07:55 Co-signature as Attending Physician, Sinan Montague MD I agree with the assessment and kdr plan of care. Disposition Summary: 12/04/22 22:36 Hospitalization Ordered Hospitalization Status: Inpatient Admission sb4 Location: Telemetry/MedSurg (Inpatient) sb4 Condition: Fair sb4 Problem: new sb4 Symptoms: are unchanged sb4 Bed/Room Type: Standard sb4 Room Assignment: [facility](12/04/22 23:04) eb1 Provider: Julio Pitts(12/04/22 23:17) sb4 Diagnosis - Weakness sb4 - Dehydration sb4 Forms: - Medication Reconciliation Form sb4 - SBAR form sb4 - Leadership Thank You Letter sb4 Signatures: Dispatcher [employer] EDSinan Douglas MD MD kdr Casimiro Sam RN RN bp Lorelei Guaman RN RN eb1 Wilton Wooten RN RN rv Karley Sher, PA-C PA-C sb4 Corrections: (The following items were deleted from the chart) 12/04 23:04 22:36 sb4 eb1 23:17 22:36 Jag Rai sb4 sb4
--- NOTE | 2022-12-04 22:40 | P.HP ---
Certification for Inpatient Patient admitted to: Observation With expected LOS: <2 Midnights Patient will require the following post-hospital care: None Practitioner: I am a practitioner with admitting privileges, knowledge of patient current condition, hospital course, and medical plan of care. Services: Services provided to patient in accordance with Admission requirements found in Title 42 Section 412.3 of the Code of Federal Regulations Patient History Date of Service: 12/04/22 Reason for admission: Generalized weakness, History of Present Illness: 86-year-old male with a past medical history of chronic kidney disease, CVA, degenerative joint disease, BPH, presents to the emergency room for generalized weakness. Daughter is primary historian reports patient was unable to ambulate from the bathroom today. Reports recent lumbar surgery, chronic low back pain from degenerative joint disease. She reports he has an appointment with a painter foreman this week. She reports recent MRI of the spine and of the knee due to pain. Reports patient has not been eating or drinking due to chronic constipation. Plan to admit for observation for IV fluids dehydration, generalized weakness. Laboratory evaluation leukocytosis 12.90, left shift 84.9, sodium hyponatremia at 130, BUN 34, creatinine 1.63, GFR low 40, BNP 695, troponin negative UA within normal limits Allergies amitriptyline Allergy (Verified 08/24/22 12:04) unknown ezetimibe Allergy (Verified 08/24/22 12:04) unknown latex Allergy (Verified 08/24/22 12:04) unknown lovastatin Allergy (Verified 08/24/22 12:04) Joint pain Home Medications: Finasteride [Proscar*] 5 mg PO DAILY 08/12/22 Glucos Sul 2Kcl/MSM/Chond/C/Mn [Glucosamine Chondroitin Cap] 1 each PO DAILY 08/12/22 Mirtazapine [Remeron*] 15 mg PO BEDTIME 08/12/22 Multivitamin 1 each PO DAILY 08/12/22 Polyethylene Glycol 3350 [Miralax] 17 gm PO DAILY 08/12/22 Primidone [Mysoline *] 25 mg PO DAILY 08/12/22 Tramadol HCl [Ultram] 50 mg PO Q6H PRN 08/12/22 Vit C/E/Zn/Coppr/Lutein/Zeaxan [Preservision Areds 2 Softgel] 1 each PO DAILY 08/12/22 Aspirin [Aspirin EC 81 MG] 81 mg PO DAILY #30 tab 08/24/22 Atorvastatin Calcium [Lipitor*] 20 mg PO BEDTIME tab 08/24/22 Folic Acid 1 mg PO DAILY #30 tab 08/24/22 Lidocaine 4% Patch [Lidoderm 5% Patch*] 1 patch TOP DAILY pat 08/24/22 Cefdinir [Cefdinir*] 300 mg PO BID 5 Days #10 cap 10/01/22 - Past Medical/Surgical History Diabetic: No -: BPH -: Spine Stenosis -: Nonessential tremors -: Squamous cell carcinoma, -: Constipation -: CVA -: Right knee meniscus tear -: Appendectomy -: Tonsillectomy -: 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 -: C5 herinated disc repair -: 08/16-Decompression surgery L4 and L5 for stenosis - Family History Father -: Heart disease Sister -: Cancer - Social History Alcohol use: No CD- Drugs: No Caffeine use: Yes Review of Systems 10-point ROS is otherwise unremarkable Physical Examination - Physical Exam General: Alert, In no apparent distress, Oriented x3 HEENT: Atraumatic, Normocephalic, PERRLA Neck: Supple, 2+ carotid pulse no bruit, JVD not distended Respiratory: Clear to auscultation bilaterally, Normal air movement Cardiovascular: No edema, Normal pulses, Regular rate/rhythm, Normal S1 S2 Capillary refill: <2 Seconds Gastrointestinal: Normal bowel sounds, Soft and benign Musculoskeletal: No clubbing, No swelling Integumentary: No rashes, No breakdown Neurological: Normal speech, Normal strength at 5/5 x4 extr, Cranial nerves 3-12 intact - Studies Laboratory Data (last 24 hrs) 12/04/22 12/04/22 19:10 19:10 WBC 12.90 H Hgb 12.1 L Hct 37.2 L Plt Count 178 Sodium 131 L Potassium 4.5 BUN 34 H Creatinine 1.63 H Glucose 129 H Magnesium 2.1 Total Bilirubin 0.5 AST 30 ALT 28 Alkaline Phosphatase 60 Assessment and Plan - Plan Assessment plan Acute on chronic kidney injury Dehydration Leukocytosis Weakness, Hyponatremia BPH, Degenerative joint disease, Constipation, DVT prophylaxis Assessment plan Acute on chronic kidney injury Dehydration IV fluids, trend kidney function BUN 34, creatinine 1.63, GFR low 40, Leukocytosis IV fluids, Rocephin empiric, UA, chest x-ray leukocytosis 12.90, left shift 84.9, negative UA within normal limits Hyponatremia sodium hyponatremia at 130, IV fluids Weakness, PT eval, fall precautions BPH, Degenerative joint disease, As needed [place] for pain Constipation, Resume appropriate home meds As needed meds for constipation, MiraLAX daily Full code Diet cardiac DVT prophylaxis Discharge Plan: Home Plan to discharge in: 24 Hours - Advance Directives Does patient have a Living Will: No Does patient have a Durable POA for Healthcare: Yes - Code Status/Comfort Care Code Status: Full Code Physician Review: Patient Assessed, Agree with Above Assessment and Plan Critical Care: No Time Spent Managing Pts Care (In Minutes): 50
[2022-12-04 22:58] LABS: SARS-CoV-2 Antigen Rapid Res Negative (Negative)
[2022-12-04] MEDS ORDERED: POLYETHYL GLY 3350 17 GM/DOSE PO PRN (22:59)
[2022-12-04] MEDS ORDERED: ALPRAZOLAM 0.25 MG TABLET PO PRN (22:59)
[2022-12-04] MEDS ORDERED: ONDANSETRON 4 MG/2 ML VIAL IV PRN (22:59)
[2022-12-04] MEDS ORDERED: SENOSIDES 8.6 MG TAB PO PRN (23:01)
[2022-12-05 00:04] VITALS: BMI 27.8
[2022-12-05] MEDS: HYDROCODONE/APAP 5/325 MG TAB PO PRN ×2 (00:22→12:50)
[2022-12-05] MEDS: NA CHLORIDE 0.9% 1,000 ML IV SCH ×2 (00:22→11:21)
[2022-12-05] MEDS: HEPARIN 5000 UNIT/ML 1 ML VIAL SQ SCH ×2 (00:22→08:06)
[2022-12-05 03:02] LABS: Absolute Lymphocytes (CBC) 2.2 K/uL (0.7-4.9); Hematocrit 32.2 % (39.6-49.0); Lymphocytes % 22.2 % (15.3-44.8); MCV 98.5 fL (80-100); MPV 6.7 fL (7.6-11.3); Platelets 161 thou/uL (152-406); RBC Red Blood Cell Count 3.27 M/uL (4.33-5.43)
[2022-12-05 03:05] LABS: Protime INR 1.11
[2022-12-05 03:17] LABS: Potassium 4.5 mEq/L (3.5-5.1)
[2022-12-05] MEDS ORDERED: CEFTRIAXONE 1,000 MG in NA CHLORIDE 0.9% 50 ML IVPB SCH (09:00)
[2022-12-05] MEDS ORDERED: FINASTERIDE 5 MG TAB PO SCH (13:00)
[2022-12-05] MEDS ORDERED: FOLIC ACID 1 MG TABLET PO SCH (13:00)
[2022-12-05] MEDS ORDERED: POLYETHYL GLY 3350 17 GM/DOSE PO SCH (13:00)
--- NOTE | 2022-12-05 14:43 | P.CNS ---
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 No ear pain. GI: constipation : No polyuria. No dysuria. No hematuria. Respiratory: denied shortness of breath.or cough Cardiovascular: No chest pain. or leg swelling. Endocrine: back cafe au lait spots Neuro: Has weakness. Wobbly gait. 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 Baseline SCr 1.4-1.5 Monitor renal panel avoid NSAID and cotrast will dc IVF #Mild hyponatremia Will dc IVF cont to monitor increase solid food intake # BPH Cont finasteride, # HLD Statin # Anemia Monitor CBC # Constipation Cont laxatives Total time spent 45 minutes including documentation, reviewing labs , placing orders and discussing plan of care with medical staff Allergies amitriptyline Allergy (Verified 12/04/22 23:38) unknown ezetimibe Allergy (Verified 12/04/22 23:38) unknown latex Allergy (Verified 12/04/22 23:38) unknown lovastatin Allergy (Verified 12/04/22 23:38) Joint pain Home Medications: Finasteride [Proscar*] 5 mg PO DAILY 08/12/22 Glucos Sul 2Kcl/MSM/Chond/C/Mn [Glucosamine Chondroitin Cap] 1 each PO DAILY 08/12/22 Mirtazapine [Remeron*] 15 mg PO BEDTIME 08/12/22 Multivitamin 1 each PO DAILY 08/12/22 Polyethylene Glycol 3350 [Miralax] 17 gm PO DAILY 08/12/22 Primidone [Mysoline *] 50 mg PO DAILY 08/12/22 Vit C/E/Zn/Coppr/Lutein/Zeaxan [Preservision Areds 2 Softgel] 1 each PO DAILY 08/12/22 Atorvastatin Calcium [Lipitor*] 20 mg PO BEDTIME tab 08/24/22 Folic Acid 1 mg PO DAILY #30 tab 08/24/22 Lidocaine 4% Patch [Lidoderm 5% Patch*] 1 patch TOP DAILY pat 08/24/22 Aspirin [Aspirin EC 81 MG] 81 mg PO BEDTIME 12/04/22 - Past Medical/Surgical History Diabetic: No -: BPH -: Spine Stenosis -: Nonessential tremors -: Squamous cell carcinoma, -: Constipation -: CVA -: Right knee meniscus tear -: Appendectomy -: Tonsillectomy -: 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 -: C5 herinated disc repair -: 08/16-Decompression surgery L4 and L5 for stenosis - Family History Father Medical History: Heart disease Sister Medical History: Cancer - Social History Smoking Status: Unknown if ever smoked Alcohol use: No CD- Drugs: No Caffeine use: Yes Physical Examination Temp Pulse Resp BP Pulse Ox 97.7 F 73 18 109/59 L 92 12/05/22 04:00 12/05/22 04:00 12/05/22 13:50 12/05/22 04:00 12/05/22 13:50 Laboratory Data (last 24 hrs) 12/04/22 12/04/22 19:10 19:10 WBC 12.90 H Hgb 12.1 L Hct 37.2 L Plt Count 178 Sodium 131 L Potassium 4.5 BUN 34 H Creatinine 1.63 H Glucose 129 H Magnesium 2.1 Total Bilirubin 0.5 AST 30 ALT 28 Alkaline Phosphatase 60
--- NOTE | 2022-12-05 15:28 | EKG ---
Test Date: 2022-12-04 Test Time: 20:14:38 Inside Account Representative: MEASUREMENT RESULTS: Intervals: Rate: 89 NH: 270 QRSD: 98 QT: 364 QTc: 442 [place]: P: 82 NH: 270 QRS: -26 T: 97 INTERPRETIVE STATEMENTS: Sinus rhythm with 1st degree AV block Anterior infarct, age undetermined Abnormal ECG Compared to ECG 09/23/2022 08:12:42 First degree AV block now present Accelerated junctional rhythm no longer present Left ventricular hypertrophy no longer present T-wave abnormality no longer present Possible ischemia no longer present Myocardial infarct finding still present Electronically Signed On 12-05-22 15:27:36 CDT by Enrique Esparza
[2022-12-05 16:15] VITALS: BP 126/67; TEMP 98
[2022-12-05 16:33] VITALS: O2SAT 97
[2022-12-05] MEDS ORDERED: MIRTAZAPINE 15 MG TAB PO SCH (21:00)
[2022-12-05] MEDS ORDERED: ATORVASTATIN 20 MG TAB PO SCH (21:00)
[2022-12-05] MEDS ORDERED: ASPIRIN EC 81 MG TAB PO SCH (21:00)
--- NOTE | 2022-12-06 13:12 | EKG ---
Test Date: 2022-12-04 Test Time: 20:15:26 Yarn Sizer: MEASUREMENT RESULTS: Intervals: Rate: 88 NH: 256 QRSD: 110 QT: 376 QTc: 454 [place]: P: 65 NH: 256 QRS: -27 T: 107 INTERPRETIVE STATEMENTS: Sinus rhythm with 1st degree AV block Otherwise normal ECG Compared to ECG 12/04/2022 20:14:38 Myocardial infarct finding no longer present Electronically Signed On 12-06-22 13:10:17 CDT by Enrique Esparza
== END 2022-12-05 17:05 | disposition home or self-care (01) ==
LOC: ER 18:31 → INTOOBSV 22:55 → ERHOLD 22:55 → 2ND 23:18
PROVIDERS: ADMIT Hospitalist; ATTEND Hospitalist
DX: N18.30 Chronic kidney disease, stage 3 unspecified (principal); N17.9 Acute kidney failure, unspecified; E87.1 Hypo-osmolality and hyponatremia; D72.829 Elevated white blood cell count, unspecified; D63.1 Anemia in chronic kidney disease; M19.90 Unspecified osteoarthritis, unspecified site; N40.0 Benign prostatic hyperplasia without lower urinary tract symptoms; E86.0 Dehydration; K59.00 Constipation, unspecified; Z86.73 Personal history of transient ischemic attack (TIA), and cerebral infarction without residual deficits; Z88.8 Allergy status to other drugs, medicaments and biological substances; Z91.040 Latex allergy status; Z20.822 Contact with and (suspected) exposure to COVID-19
CPT/HCPCS: 96361; 93005; 85025 ×2; 81001; 80048 ×2; 36415; 83735; 85610; 80076; 84484; 83880; 96375; 96374; 99285; 87811; J1644 ×2; J2405; J7030 ×3; J0696